=== PATIENT | female | born 1960 | race Caucasian/White ===

== ENCOUNTER 2018-11-14 08:00 | Outpatient (CLI) | payer OTHER ==
[2018-11-14 19:24] LABS: BILIRUBIN,URINE NEGATIVE (NEGATIVE); GLUCOSE, URINE (UA) >=1000 mg/dL (NEGATIVE); KETONES,URINE (UA) NEGATIVE (NEGATIVE); LEUKOCYTE ESTERASE, URINE NEGATIVE (NEGATIVE); NITRITE,URINE NEGATIVE (NEGATIVE); OCCULT BLOOD,URINE NEGATIVE (NEGATIVE); PROTEIN,URINE NEGATIVE (NEGATIVE); UROBILINOGEN,URINE 0.2 (NORMAL) E.U./dL (NORMAL)
[2018-11-14 19:28] LABS: CLARITY,URINE CLEAR (CLEAR)
== END 2018-11-14 23:59 | disposition home or self-care (01) ==
LOC: LAB.R 08:00
PROVIDERS: ATTEND Internal Medicine
DX: N39.0 Urinary tract infection, site not specified (principal)
CPT/HCPCS: 81001; 81003; 87086

== ENCOUNTER 2023-03-28 00:22 | Outpatient (CLI) | payer MEDICARE, OTHER | END 2023-03-28 23:59 | disposition EMS.NT | LOC: EMS 00:22 | DX: Z03.89 Encounter for observation for other suspected diseases and conditions ruled out (principal) ==

== ENCOUNTER 2023-04-19 08:36 | Emergency (ER) | payer MEDICARE, OTHER ==
--- NOTE | 2023-04-19 09:02 | ED Physician Documentation ---
History of Present Illness - Stated complaint Stated Complaint: SENT BY PCP - Chief complaint Chief Complaint: General - History obtained from History obtained from: Patient - History of Present Illness Timing: Today - Additonal information Additional information: Radha Russell is a 62-year-old female with a history of type 2 diabetes who went into see her primary care doctor for a wound that was not healing on her right foot. She had some blood work done yesterday and she was called by her primary care doctor who recommended she come to the emergency department for recheck of her potassium. The patient states that she is otherwise without specific symptoms. She denies vomiting diarrhea constipation shortness of breath cough fever. Review of Systems Constitutional: denies: Fever, Myalgias Eyes: denies: Decreased vision Ears: denies: Ear pain Nose: denies: Rhinorrhea / runny nose, Congestion Throat: denies: Sore throat Cardiac: denies: Chest pain / pressure, Palpitations Respiratory: denies: Dyspnea, Cough, Wheezing GI: denies: Abdominal Pain, Nausea, Vomiting, Constipation, Diarrhea : denies: Dysuria, Frequency Skin: denies: Rash Musculoskeletal: reports: Extremity pain. 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 - Present Medications Home Medications: Ambulatory Orders Medication Instructions Recorded Confirmed Insulin Glargine,Hum.rec.anlog 70 unit SQ HS 04/28/17 04/19/23 [Lantus Solostar] Insulin Lispro [Humalog] 100 unit SQ AC 04/28/17 04/19/23 lisinopriL [Lisinopril] 40 mg PO DAILY 04/28/17 04/19/23 Amox/Clav 875/125 [Augmentin 1 tablet PO Q12H 04/19/23 04/19/23 875/125 Tab] Chlorthalidone 25 mg ORAL DAILY 04/19/23 04/19/23 Empagliflozin [Jardiance] 25 mg PO DAILY 04/19/23 04/19/23 Furosemide [Lasix] 20 mg PO DAILY #20 tablet 04/19/23 Rosuvastatin Calcium 20 mg PO DAILY 04/19/23 04/19/23 Sulfamethox/Trimeth 800/160 1 tablet PO BID 04/19/23 04/19/23 [Bactrim Ds] - Allergies Allergies/Adverse Reactions: Allergies Allergy/AdvReac Type Severity Reaction Status Date / Time levofloxacin Allergy Intermediate swelling Verified 04/19/23 08:42 in mouth rosiglitazone maleate * AdvReac Edema Verified 04/19/23 08:42 [From [facility]] - Social History Smoking Status: Never smoker PD ED PE NORMAL - Vitals Vital signs reviewed: Yes (hypertensive ) - General General: Alert and oriented X 3, No acute distress, Well developed/nourished - HEENT HEENT: Atraumatic, PERRL, EOMI - Respiratory Respiratory: No respiratory distress - Derm Derm: Normal color, Warm and dry - Extremities Extremities: No edema, Other (right calf is dressed) - Neuro Neuro: Alert and oriented X 3, door slinger 2-12 intact, No motor deficit, No sensory deficit, Normal speech Eye Opening: Spontaneous Motor: Obeys Commands Verbal: Oriented GCS Score: 15 - Psych Psych: Normal mood, Normal affect Results - Vitals Vitals: Vital Signs - 24 hr 04/19/23 04/19/23 04/19/23 08:44 13:00 15:11 Temperature 36.3 C L Heart Rate 87 80 78 Respiratory 18 20 19 Rate Blood Pressure 164/68 H 128/57 L 129/56 L O2 Saturation 98 98 99 Oxygen O2 Source Room air - EKG (time done) 1352 EKG releavant findings:: EKG personally interpreted by author of this note. Relevant findings are: Rate: Rate (enter#) (88) Rhythm: NSR Ischemia: Normal ST segments Compare to prior EKG: Old EKG unavailable Computer interpretation: Agree with computer - Labs Labs: Laboratory Tests 04/19/23 04/19/23 04/19/23 09:03 09:30 09:30 WBC 7.6 RBC 4.80 Hgb 12.7 Hct 40.7 MCV 84.8 MCH 26.5 L MCHC 31.2 L RDW 16.1 H Plt Count 277 MPV 8.9 Neut # (Auto) 5.4 Lymph # (Auto) 1.3 L [place] # (Auto) 0.6 Eos # (Auto) 0.1 Baso # (Auto) 0.1 Absolute Nucleated RBC 0.00 Nucleated RBC % 0.0 Sodium 134 L Potassium 6.2 H* Chloride 104 Carbon Dioxide 24 Anion Gap 6.0 BUN 55 H Creatinine 1.6 H Estimated GFR (MDRD) 33 L Glucose 170 H POC Whole Bld Glucose 141 H Calcium 9.5 Total Bilirubin 0.5 AST 13 ALT 18 Alkaline Phosphatase 67 Total Protein 7.8 Albumin 3.5 Globulin 4.3 H Albumin/Globulin Ratio 0.8 L Lipase 87 H 04/19/23 04/19/23 13:17 16:08 WBC RBC Hgb Hct MCV MCH MCHC RDW Plt Count MPV Neut # (Auto) Lymph # (Auto) [place] # (Auto) Eos # (Auto) Baso # (Auto) Absolute Nucleated RBC Nucleated RBC % Sodium 134 L 132 L Potassium 6.1 H* 5.9 H Chloride 106 102 Carbon Dioxide 21 21 Anion Gap 7.0 9.0 BUN 50 H 47 H Creatinine 1.5 H 1.5 H Estimated GFR (MDRD) 35 L 35 L Glucose 176 H 212 H POC Whole Bld Glucose Calcium 9.1 9.4 Total Bilirubin AST ALT Alkaline Phosphatase Total Protein Albumin Globulin Albumin/Globulin Ratio Lipase Procedures - IVC sono (time) 1012 Bedside IVC sono: IVC measures (cm) (0.92), Dehydration (2 liter deficit) PD Medical Decision Making - ED course Complexity details: reviewed results, re-evaluated patient, considered differential, d/w patient Reviewed Lab Results: We reviewed a complete blood count showing a normal white blood cell count normal hemoglobin hematocrit and platelets with normal indices chemistries were remarkable for his serum potassium of 6.2 BUN elevated at 55 and creatinine elevated at 1.6 we do not have priors for this patient for comparison. I have compared this to an outpatient note and it appears this is similar from her previous 4 BUN and creatinine liver function normal, These laboratory results confirmed the reason the patient was brought into the emergency department. With an elevated potassium of 6.2. Her elevated BUN of 55 and creatinine of 1.6 are significant for chronic renal insufficiency. ED course: 62-year-old Radha Russell has come to the emergency department after getting a call from her primary care doctor with concerns of her potassium being elevated. She has a history of diabetes which has been poorly controlled and chronic renal insufficiency as a result of her diabetes. She is currently being treated for a wound to her leg which appears to be healing and is not examined today. It does appear she has improved her control of her diabetes prior to arrival to the emergency department. She did appear dehydrated on interrogation of the inferior vena cava and the initial maneuver for lowering the potassium was simple hydration with saline. This was ineffective. We subsequently administered 40 mg of Lasix intravenously and reduce the potassium into a safer range of 5.9. We will place the patient on a short term Lasix and have her follow-up with her primary. I have asked her to stop her chlorthalidone while she is taking the Lasix. I have asked her to be very careful about control of her diabetes as the combination of diabetes [id number] and the Lasix could make the dehydration critical. She has an appointment to see her primary in 2 days Departure - Departure Disposition: 01 Home, Self Care Clinical Impression: Hyperkalemia, Dehydration Condition: Stable Instructions: Hyperkalemia Dc, ED Dehydration Follow-Up: Catarina Whitfield [Other] Prescriptions: Furosemide [Lasix] 20 mg PO DAILY #20 tablet Comments: Radha, today your potassium was high and required intravenous fluid as well as Lasix to reduce it. My recommendation is to gain control of your diabetes to prevent any further dehydration. We are prescribing a diuretic which will make you dehydrated. It will also decrease your potassium. Stop the chlorthalidone today and start the lasix at 20mg daily starting tomorrow. Follow up with your doctor as planned in 2 days. The Lasix has been E scribed to the [facility] in [place] Discharge Date/Time: 04/19/23 16:47
[2023-04-19 09:36] LABS: BASOPHILS # (AUTO) 0.1 10^3/uL (0.0-0.1); BASOPHILS % (AUTO) 0.9 %; EOSINOPHILS # (AUTO) 0.1 10^3/uL (0.0-0.7); EOSINOPHILS % (AUTO) 1.6 %; HCT - HEMATOCRIT 40.7 % (37.0-47.0); HGB - HEMOGLOBIN 12.7 g/dL (12.0-16.0); LYMPHOCYTES # (AUTO) 1.3 10^3/uL (1.5-3.5); LYMPHOCYTES % (AUTO) 17.5 %; MEAN CORPUSCULAR HEMOGLOBIN 26.5 pg (27.0-31.0); MEAN CORPUSCULAR HGB CONC 31.2 g/dL (32.0-36.0); MEAN CORPUSCULAR VOLUME 84.8 fL (81.0-99.0); MEAN PLATELET VOLUME 8.9 fL (7.9-10.8); MONOCYTES # (AUTO) 0.6 10^3/uL (0.0-1.0); MONOCYTES % (AUTO) 8.3 %; NEUTROPHILS # (AUTO) 5.4 10^3/uL (1.5-6.6); NEUTROPHILS % (AUTO) 70.9 %; PLT - PLATELET COUNT 277 10^3/uL (130-450); RED CELL DISTRIBUTION WIDTH 16.1 % (12.0-15.0); WHITE BLOOD COUNT 7.6 x10^3/uL (4.8-10.8)
[2023-04-19 09:54] LABS: ALBUMIN 3.5 g/dL (3.2-5.5); CALCIUM 9.5 mg/dL (8.5-10.3); CREATININE 1.6 mg/dL (0.4-1.0)
[2023-04-19 09:55] LABS: ALBUMIN/GLOBULIN RATIO 0.8 (1.0-2.2); BILIRUBIN,TOTAL 0.5 mg/dL (0.2-1.0); TOTAL PROTEIN 7.8 g/dL (6.7-8.2)
[2023-04-19 09:58] LABS: POTASSIUM 6.2 mmol/L (3.5-5.0)
--- OUTSIDE RECORDS SUMMARY | 2023-04-19 09:58 | EXTERNAL MEDICAL SUMMARY RPT | Continuity of Care Document ---
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 Role Phone Shaggy Sanchez Unavailable Unavailable Allergies and Intolerances date description facility type (no date) Penicillins [facility] (unknown) (no date) ibuprofen [facility] (unknown) Medications date description facility 2023-01-31 00:00 Nitrofurantoin Monohyd/M-Cryst [facility] 2023-01-31 00:00 Fluconazole [facility] Problems date description facility 2023-01-31 00:00 Infection due to yeast [facility] 2023-01-31 00:00 Urinary tract infection [facility] Results/Labs test date author facility value unit interpretation Result panel 1 (unknown) (no date) (unknown) (unknown) 0-1/HPF (units unknown) (unknown) (unknown) (no date) (unknown) (unknown) 0-1/HPF (units unknown) (unknown) (unknown) (no date) (unknown) (unknown) 10-30/HPF (units unknown) (unknown) (unknown) (no date) (unknown) (unknown) Few (2-10) (units unknown) (unknown) (unknown) (no date) (unknown) (unknown) Specimen Cultured (u nits unknown) (unknown) Result panel 2 (unknown) (no date) (unknown) (unknown) (no value) (units unknown) (unknown) (unknown) (no date) (unknown) (unknown) (Benadryl) (units unknown) (unknown) (unknown) (no date) (unknown) (unknown) (Jardiance) (units unknown) (unknown) (unknown) (no date) (unknown) (unknown) (Toujeo SoloSt ar U-300 Insulin) (units unknown) (unknown) (unknown) (no date) (unknown) (unknown) 11/13/19 (units unknown) (unknown) (unknown) (no date) (unknown) (unknown) 01/31/23 20:54 (unit s unknown) (unknown) (unknown) (no date) (unknown) (unknown) 01/31/23 Range/Units (units unknown) (unknown) (unknown) (no date) (unknown) (unknown) 01/31/23 (units unknown) (unknown) (unknown) (no date) (unknown) (unknown) 1 spray Intran eden PRN PRN (Reason: Allergy Symptoms) (units unknown) (unknown) (unknown) (no date) (unknown) (unknown) 100 unit SQ BID Qty: 0 (units unknown) (unknown) (unknown) (no date) (unknown) (unknown) 100 unit SUBCUT AC ( units unknown) (unknown) (unknown) (no date) (unknown) (unknown) [id number] (units unknown) (unknown) (unknown) (no date) (unknown) (unknown) 20 mg PO BID Qty: 0 (units unknown) (unknown) (unknown) (no date) (unknown) (unknown) 20:25 (units unknown) (unknown) (unknown) (no date) (unknown) (unknown) 20:54 (units unknown) (unknown) (unknown) (no date) (unknown) (unknown) 25 mg PO DAILY (unit s unknown) (unknown) (unknown) (no date) (unknown) (unknown) 25 mg PO PRN P RN (Reason: Allergy Symptoms) (units unknown) (unknown) (unknown) (no date) (unknown) (unknown) 325 mg PO PRN PRN (Reason: pain) (units unknown) (unknown) (unknown) (no date) (unknown) (unknown) 80 units subcut BID (units unknown) (unknown) (unknown) (no date) (unknown) (unknown) Age/Sex: 62 / F (uni ts unknown) (unknown) (unknown) (no date) (unknown) (unknown) Allergies (units unknown) (unknown) (unknown) (no date) (unknown) (unknown) Allergy/AdvRea c Type Severity Reaction Status Date / Time (units unknown) (unknown) (unknown) (no date) (unknown) (unknown) Amputation of second toe, left, traumatic (units unknown) (unknown) (unknown) (no date) (unknown) (unknown) Bedside Urine Bilirubin - Negative (units unknown) (unknown) (unknown) (no date) (unknown) (unknown) Bedside Urine Glucose 1000 mg/dl (units unknown) (unknown) (unknown) (no date) (unknown) (unknown) Bedside Urine Ketone - Negative (units unknown) (unknown) (unknown) (no date) (unknown) (unknown) Bedside Urine Leukocytes +/- 15 (units unknown) (unknown) (unknown) (no date) (unknown) (unknown) Bedside Urine Nitrite - Negative (units unknown) (unknown) (unknown) (no date) (unknown) (unknown) Bedside Urine Occult Blood (units unknown) (unknown) (unknown) (no date) (unknown) (unknown) Bedside Urine Protein - Negative (units unknown) (unknown) (unknown) (no date) (unknown) (unknown) Bedside Urine Urobilinogen - Negative (units unknown) (unknown) (unknown) (no date) (unknown) (unknown) Bedside Urine pH 5.5 (units unknown) (unknown) (unknown) (no date) (unknown) (unknown) Blood Pressure 169/74 H 01/31/23 20:25 (units unknown) (unknown) (unknown) (no date) (unknown) (unknown) Blood Pressure 169/74 H (units unknown) (unknown) (unknown) (no date) (unknown) (unknown) Chief complain t: Urogenital-Female (units unknown) (unknown) (unknown) (no date) (unknown) (unknown) Chronic wound of extremity (units unknown) (unknown) (unknown) (no date) (unknown) (unknown) Course (units unknown) (unknown) (unknown) (no date) (unknown) (unknown) : 2 Acct:[id number] (units unknown) (unknown) (unknown) (no date) (unknown) (unknown) Date of Servic e: 01/31/23 (units unknown) (unknown) (unknown) (no date) (unknown) (unknown) Departure (units unknown) (unknown) (unknown) (no date) (unknown) (unknown) Diabetes melli tus, type 2 (units unknown) (unknown) (unknown) (no date) (unknown) (unknown) Discharge Plan (unit s unknown) (unknown) (unknown) (no date) (unknown) (unknown) ED Orders (units unknown) (unknown) (unknown) (no date) (unknown) (unknown) ER Physician: Kei Green D.O. (units unknown) (unknown) (unknown) (no date) (unknown) (unknown) Edema extremities (u nits unknown) (unknown) (unknown) (no date) (unknown) (unknown) Emergency Report (un its unknown) (unknown) (unknown) (no date) (unknown) (unknown) Esterase (units unknown) (unknown) (unknown) (no date) (unknown) (unknown) Exam (units unknown) (unknown) (unknown) (no date) (unknown) (unknown) Family History (units unknown) (unknown) (unknown) (no date) (unknown) (unknown) General (units unknown) (unknown) (unknown) (no date) (unknown) (unknown) H/O section (units unknown) (unknown) (unknown) (no date) (unknown) (unknown) HPI - General Adult (units unknown) (unknown) (unknown) (no date) (unknown) (unknown) Home Medications (un its unknown) (unknown) (unknown) (no date) (unknown) (unknown) Humalog FadykathrynEmory n Insulin 200 unit/mL (3 mL) Insulin Pen (units unknown) (unknown) (unknown) (no date) (unknown) (unknown) Hx of appendectomy ( units unknown) (unknown) (unknown) (no date) (unknown) (unknown) Hypertension (units unknown) (unknown) (unknown) (no date) (unknown) (unknown) Initial Vital Signs (units unknown) (unknown) (unknown) (no date) (unknown) (unknown) Initial Vital Signs: (units unknown) (unknown) (unknown) (no date) (unknown) (unknown) [address] [id number] (units unknown) (unknown) (unknown) (no date) (unknown) (unknown) Jardiance 25 mg Tabl et (units unknown) (unknown) (unknown) (no date) (unknown) (unknown) Lab Data (units unknown) (unknown) (unknown) (no date) (unknown) (unknown) Lab Results (units unknown) (unknown) (unknown) (no date) (unknown) (unknown) Labs: (units unknown) (unknown) (unknown) (no date) (unknown) (unknown) Lantus U-100 I nsulin 100 UNIT/1 ML solution (units unknown) (unknown) (unknown) (no date) (unknown) (unknown) Medical Decisi on Making (units unknown) (unknown) (unknown) (no date) (unknown) (unknown) Medical Histor y (units unknown) (unknown) (unknown) (no date) (unknown) (unknown) Medication Instructions Recorded Confirmed (units unknown) (unknown) (unknown) (no date) (unknown) (unknown) Mode of arriva l: Wheelchair (units unknown) (unknown) (unknown) (no date) (unknown) (unknown) Mother d No problems noted. (units unknown) (unknown) (unknown) (no date) (unknown) (unknown) Neuropathy ass ociated with anti-acetylcholine receptor antibody (units unknown) (unknown) (unknown) (no date) (unknown) (unknown) Neuropathy (units unknown) (unknown) (unknown) (no date) (unknown) (unknown) No Action (units unknown) (unknown) (unknown) (no date) (unknown) (unknown) Ordered: (units unknown) (unknown) (unknown) (no date) (unknown) (unknown) Orders (units unknown) (unknown) (unknown) (no date) (unknown) (unknown) Osteomyelitis (units unknown) (unknown) (unknown) (no date) (unknown) (unknown) Oxygen Deliver y Method Room Air 01/31/23 20:25 (units unknown) (unknown) (unknown) (no date) (unknown) (unknown) Oxygen Deliver y Method Room Air (units unknown) (unknown) (unknown) (no date) (unknown) (unknown) Patient History (uni ts unknown) (unknown) (unknown) (no date) (unknown) (unknown) Patient: Radha Russell MR#: [id number] (units unknown) (unknown) (unknown) (no date) (unknown) (unknown) Penicillins Al lergy Severe RASH, Verified 10/13/18 12:40 (units unknown) (unknown) (unknown) (no date) (unknown) (unknown) Point of care testin g: (units unknown) (unknown) (unknown) (no date) (unknown) (unknown) Prescriptions: (unit s unknown) (unknown) (unknown) (no date) (unknown) (unknown) Pulse Oximetry 96 01/31/23 20:25 (units unknown) (unknown) (unknown) (no date) (unknown) (unknown) Pulse Oximetry 96 (u nits unknown) (unknown) (unknown) (no date) (unknown) (unknown) Pulse Rate 104 H 01/31/23 20:25 (units unknown) (unknown) (unknown) (no date) (unknown) (unknown) Pulse Rate 104 H (un its unknown) (unknown) (unknown) (no date) (unknown) (unknown) Related Data (units unknown) (unknown) (unknown) (no date) (unknown) (unknown) Relief) (units unknown) (unknown) (unknown) (no date) (unknown) (unknown) Respiratory Ra te 18 01/31/23 20:25 (units unknown) (unknown) (unknown) (no date) (unknown) (unknown) Respiratory Rate 18 (units unknown) (unknown) (unknown) (no date) (unknown) (unknown) Signed By: (units unknown) (unknown) (unknown) (no date) (unknown) (unknown) Smoking Status : Never smoker (units unknown) (unknown) (unknown) (no date) (unknown) (unknown) Social History (units unknown) (unknown) (unknown) (no date) (unknown) (unknown) Source: patient (uni ts unknown) (unknown) (unknown) (no date) (unknown) (unknown) [place],Suspension (un its unknown) (unknown) (unknown) (no date) (unknown) (unknown) Stated complai nt: feels like uti (units unknown) (unknown) (unknown) (no date) (unknown) (unknown) Substance Use Type: does not use (units unknown) (unknown) (unknown) (no date) (unknown) (unknown) Surgical Histo ry (units unknown) (unknown) (unknown) (no date) (unknown) (unknown) Temperature 97 .8 F 01/31/23 20:25 (units unknown) (unknown) (unknown) (no date) (unknown) (unknown) Temperature 97.8 F ( units unknown) (unknown) (unknown) (no date) (unknown) (unknown) Time Seen by [place] sun: 01/31/23 21:27 (units unknown) (unknown) (unknown) (no date) (unknown) (unknown) Julio Cesar Ortiz r U-300 Insulin 300 unit/mL (1.5 mL) Insulin Pen (units unknown) (unknown) (unknown) (no date) (unknown) (unknown) U-100 Insulin) (unit s unknown) (unknown) (unknown) (no date) (unknown) (unknown) U-200 Insulin) (unit s unknown) (unknown) (unknown) (no date) (unknown) (unknown) Ur Culture Ind icated? Specimen cultured (units unknown) (unknown) (unknown) (no date) (unknown) (unknown) Urine Bacteria Few (2-10) H (None) (units unknown) (unknown) (unknown) (no date) (unknown) (unknown) Urine Culture Stat ( units unknown) (unknown) (unknown) (no date) (unknown) (unknown) Urine Dip (units unknown) (unknown) (unknown) (no date) (unknown) (unknown) Urine Microscopic St at (units unknown) (unknown) (unknown) (no date) (unknown) (unknown) Urine RBC 0-1/ hpf (0-5/HPF) (units unknown) (unknown) (unknown) (no date) (unknown) (unknown) Urine Specific [place] 1.015 (units unknown) (unknown) (unknown) (no date) (unknown) (unknown) Urine WBC 10-3 0/hpf H (0-5/HPF) (units unknown) (unknown) (unknown) (no date) (unknown) (unknown) VOMITING (units unknown) (unknown) (unknown) (no date) (unknown) (unknown) Vital Signs - 8 hr ( units unknown) (unknown) (unknown) (no date) (unknown) (unknown) Vital Signs (units unknown) (unknown) (unknown) (no date) (unknown) (unknown) Vital signs: (units unknown) (unknown) (unknown) (no date) (unknown) (unknown) alcohol intake frequency: holidays/special occasions only (units unknown) (unknown) (unknown) (no date) (unknown) (unknown) alcohol intake: reagan r (units unknown) (unknown) (unknown) (no date) (unknown) (unknown) aspirin 325 mg Table t (units unknown) (unknown) (unknown) (no date) (unknown) (unknown) aspirin 325 mg tablet 325 mg PO PRN PRN pain 11/13/19 11/13/19 (units unknown) (unknown) (unknown) (no date) (unknown) (unknown) diphenhydramin e HCl 25 mg capsule 25 mg PO PRN PRN Allergy Symptoms 10/13/18 (units unknown) (unknown) (unknown) (no date) (unknown) (unknown) diphenhydramin e HCl [Benadryl] 25 mg Capsule (units unknown) (unknown) (unknown) (no date) (unknown) (unknown) empagliflozin 25 mg tablet 25 mg PO DAILY 10/13/18 11/13/19 (units unknown) (unknown) (unknown) (no date) (unknown) (unknown) fluticasone pr opionate 50 1 spray intranasal PRN PRN Allergy 10/13/18 11/13/19 (units unknown) (unknown) (unknown) (no date) (unknown) (unknown) fluticasone pr opionate [Flonase Allergy Relief] 50 mcg/actuation (units unknown) (unknown) (unknown) (no date) (unknown) (unknown) household memb ers: spouse, children and other (units unknown) (unknown) (unknown) (no date) (unknown) (unknown) ibuprofen [place] Severe VOMITING Verified 10/13/18 12:40 (units unknown) (unknown) (unknown) (no date) (unknown) (unknown) insulin glargi ne 100 unit/mL 100 unit SQ BID ##0 09/21/11 11/13/19 (units unknown) (unknown) (unknown) (no date) (unknown) (unknown) insulin glargi ne U-300 conc 300 80 units SUBCUT BID 10/13/18 11/13/19 (units unknown) (unknown) (unknown) (no date) (unknown) (unknown) insulin lispro 200 unit/mL (3 mL) 100 unit SUBCUT AC 11/14/19 11/14/19 (units unknown) (unknown) (unknown) (no date) (unknown) (unknown) lisinopril 40 MG tablet (units unknown) (unknown) (unknown) (no date) (unknown) (unknown) lisinopril 40 mg tablet 20 mg PO BID ##0 09/21/11 11/13/19 (units unknown) (unknown) (unknown) (no date) (unknown) (unknown) mcg/actuation nasal Symptoms (units unknown) (unknown) (unknown) (no date) (unknown) (unknown) spray,suspensi on (Flonase Allergy (units unknown) (unknown) (unknown) (no date) (unknown) (unknown) subcutaneous p en (Humalog KwikPen (units unknown) (unknown) (unknown) (no date) (unknown) (unknown) subcutaneous s olution (Lantus (units unknown) (unknown) (unknown) (no date) (unknown) (unknown) unit/mL (1.5 m L) subcutaneous pen (units unknown) (unknown) Result panel 3 (unknown) (no date) (unknown) (unknown) (no value) (units unknown) (unknown) (unknown) (no date) (unknown) (unknown) <Electronicall y signed by Kei Green D.O.> (units unknown) (unknown) (unknown) (no date) (unknown) (unknown) (Benadryl) (units unknown) (unknown) (unknown) (no date) (unknown) (unknown) (Diflucan) (units unknown) (unknown) (unknown) (no date) (unknown) (unknown) (Jardiance) (units unknown) (unknown) (unknown) (no date) (unknown) (unknown) (Toujeo SoloSt ar U-300 Insulin) (units unknown) (unknown) (unknown) (no date) (unknown) (unknown) 11/13/19 (units unknown) (unknown) (unknown) (no date) (unknown) (unknown) 01/31/23 20:54 (unit s unknown) (unknown) (unknown) (no date) (unknown) (unknown) 01/31/23 Range/Units (units unknown) (unknown) (unknown) (no date) (unknown) (unknown) 01/31/23 (units unknown) (unknown) (unknown) (no date) (unknown) (unknown) 02/01/23 0550 (units unknown) (unknown) (unknown) (no date) (unknown) (unknown) 1 spray Intran eden PRN PRN (Reason: Allergy Symptoms) (units unknown) (unknown) (unknown) (no date) (unknown) (unknown) 100 mg PO BOUBACAR Y Qty: 2 0RF (units unknown) (unknown) (unknown) (no date) (unknown) (unknown) 100 mg PO Q12H 5 Days Qty: 10 0RF (units unknown) (unknown) (unknown) (no date) (unknown) (unknown) 100 unit SQ BID Qty: 0 (units unknown) (unknown) (unknown) (no date) (unknown) (unknown) 100 unit SUBCUT AC ( units unknown) (unknown) (unknown) (no date) (unknown) (unknown) [id number] (units unknown) (unknown) (unknown) (no date) (unknown) (unknown) 20 mg PO BID Qty: 0 (units unknown) (unknown) (unknown) (no date) (unknown) (unknown) 20:25 (units unknown) (unknown) (unknown) (no date) (unknown) (unknown) 20:54 (units unknown) (unknown) (unknown) (no date) (unknown) (unknown) 25 mg PO DAILY (unit s unknown) (unknown) (unknown) (no date) (unknown) (unknown) 25 mg PO PRN P RN (Reason: Allergy Symptoms) (units unknown) (unknown) (unknown) (no date) (unknown) (unknown) 325 mg PO PRN PRN (Reason: pain) (units unknown) (unknown) (unknown) (no date) (unknown) (unknown) 80 units subcut BID (units unknown) (unknown) (unknown) (no date) (unknown) (unknown) Activity Restrictions/Additiona l Instructions: (units unknown) (unknown) (unknown) (no date) (unknown) (unknown) Age/Sex: 62 / F (uni ts unknown) (unknown) (unknown) (no date) (unknown) (unknown) Allergies (units unknown) (unknown) (unknown) (no date) (unknown) (unknown) Allergy/AdvRea c Type Severity Reaction Status Date / Time (units unknown) (unknown) (unknown) (no date) (unknown) (unknown) Amputation of second toe, left, traumatic (units unknown) (unknown) (unknown) (no date) (unknown) (unknown) Bedside Urine Bilirubin - Negative (units unknown) (unknown) (unknown) (no date) (unknown) (unknown) Bedside Urine Glucose 1000 mg/dl (units unknown) (unknown) (unknown) (no date) (unknown) (unknown) Bedside Urine Ketone - Negative (units unknown) (unknown) (unknown) (no date) (unknown) (unknown) Bedside Urine Leukocytes +/- 15 (units unknown) (unknown) (unknown) (no date) (unknown) (unknown) Bedside Urine Nitrite - Negative (units unknown) (unknown) (unknown) (no date) (unknown) (unknown) Bedside Urine Occult Blood (units unknown) (unknown) (unknown) (no date) (unknown) (unknown) Bedside Urine Protein - Negative (units unknown) (unknown) (unknown) (no date) (unknown) (unknown) Bedside Urine Urobilinogen - Negative (units unknown) (unknown) (unknown) (no date) (unknown) (unknown) Bedside Urine pH 5.5 (units unknown) (unknown) (unknown) (no date) (unknown) (unknown) Blood Pressure 169/74 H 01/31/23 20:25 (units unknown) (unknown) (unknown) (no date) (unknown) (unknown) Blood Pressure 169/74 H (units unknown) (unknown) (unknown) (no date) (unknown) (unknown) Cephalexin HCl (Cephalexin 250 Mg Capsule) 500 mg PO NOW ONE (units unknown) (unknown) (unknown) (no date) (unknown) (unknown) Chief complain t: Urogenital-Female (units unknown) (unknown) (unknown) (no date) (unknown) (unknown) Chronic wound of extremity (units unknown) (unknown) (unknown) (no date) (unknown) (unknown) Clinical Impression: (units unknown) (unknown) (unknown) (no date) (unknown) (unknown) Const (units unknown) (unknown) (unknown) (no date) (unknown) (unknown) Constitutional (unit s unknown) (unknown) (unknown) (no date) (unknown) (unknown) Constitutional : Reports system reviewed and no additional complaints, except as (units unknown) (unknown) (unknown) (no date) (unknown) (unknown) Course (units unknown) (unknown) (unknown) (no date) (unknown) (unknown) : 2 Acct:[id number] (units unknown) (unknown) (unknown) (no date) (unknown) (unknown) Date of Servic e: 01/31/23 (units unknown) (unknown) (unknown) (no date) (unknown) (unknown) Departure (units unknown) (unknown) (unknown) (no date) (unknown) (unknown) Diabetes melli tus, type 2 (units unknown) (unknown) (unknown) (no date) (unknown) (unknown) Discharge Plan (unit s unknown) (unknown) (unknown) (no date) (unknown) (unknown) Discontinued Medications (units unknown) (unknown) (unknown) (no date) (unknown) (unknown) Documented By: [facility] ( units unknown) (unknown) (unknown) (no date) (unknown) (unknown) Documented By: RL (u nits unknown) (unknown) (unknown) (no date) (unknown) (unknown) ED Orders (units unknown) (unknown) (unknown) (no date) (unknown) (unknown) ER Physician: Kei Green D.O. (units unknown) (unknown) (unknown) (no date) (unknown) (unknown) Edema extremities (u nits unknown) (unknown) (unknown) (no date) (unknown) (unknown) Emergency Report (un its unknown) (unknown) (unknown) (no date) (unknown) (unknown) Esterase (units unknown) (unknown) (unknown) (no date) (unknown) (unknown) Exam (units unknown) (unknown) (unknown) (no date) (unknown) (unknown) Family History (units unknown) (unknown) (unknown) (no date) (unknown) (unknown) Fluconazole (Fluconazole 100 Mg Tablet) 100 mg PO NOW ONE (units unknown) (unknown) (unknown) (no date) (unknown) (unknown) GI (units unknown) (unknown) (unknown) (no date) (unknown) (unknown) Gastrointestinal (un its unknown) (unknown) (unknown) (no date) (unknown) (unknown) Gastrointestin al: Reports system reviewed and no additional complaints, except (units unknown) (unknown) (unknown) (no date) (unknown) (unknown) General (units unknown) (unknown) (unknown) (no date) (unknown) (unknown) General: coope rative and comfortable (units unknown) (unknown) (unknown) (no date) (unknown) (unknown) Genitourinary (units unknown) (unknown) (unknown) (no date) (unknown) (unknown) Genitourinary: Reports system reviewed and no additional complaints, except as (units unknown) (unknown) (unknown) (no date) (unknown) (unknown) H/O section (units unknown) (unknown) (unknown) (no date) (unknown) (unknown) HENMT (units unknown) (unknown) (unknown) (no date) (unknown) (unknown) HPI - General Adult (units unknown) (unknown) (unknown) (no date) (unknown) (unknown) HPI narrative: (unit s unknown) (unknown) (unknown) (no date) (unknown) (unknown) Head: normal t o inspection and normocephalic (units unknown) (unknown) (unknown) (no date) (unknown) (unknown) History of Pre sent Illness (units unknown) (unknown) (unknown) (no date) (unknown) (unknown) Home Medications (un its unknown) (unknown) (unknown) (no date) (unknown) (unknown) Humalog KwkathrynPe n Insulin 200 unit/mL (3 mL) Insulin Pen (units unknown) (unknown) (unknown) (no date) (unknown) (unknown) Hx of appendectomy ( units unknown) (unknown) (unknown) (no date) (unknown) (unknown) Hypertension (units unknown) (unknown) (unknown) (no date) (unknown) (unknown) I do recommend that you take the antibiotics and the Diflucan as directed. They (units unknown) (unknown) (unknown) (no date) (unknown) (unknown) Initial Vital Signs (units unknown) (unknown) (unknown) (no date) (unknown) (unknown) Initial Vital Signs: (units unknown) (unknown) (unknown) (no date) (unknown) (unknown) Inspection: no rmal to inspection (units unknown) (unknown) (unknown) (no date) (unknown) (unknown) Instructions: DI for Urinary Tract Infection (UTI) (units unknown) (unknown) (unknown) (no date) (unknown) (unknown) Integumentary/Breast s (units unknown) (unknown) (unknown) (no date) (unknown) (unknown) [address] [address] (units unknown) (unknown) (unknown) (no date) (unknown) (unknown) Jardiance 25 mg Tabl et (units unknown) (unknown) (unknown) (no date) (unknown) (unknown) Lab Data (units unknown) (unknown) (unknown) (no date) (unknown) (unknown) Lab Results (units unknown) (unknown) (unknown) (no date) (unknown) (unknown) Labs: (units unknown) (unknown) (unknown) (no date) (unknown) (unknown) Lantus U-100 I nsulin 100 UNIT/1 ML solution (units unknown) (unknown) (unknown) (no date) (unknown) (unknown) Last Admin: 21:37 Dose: Not Given (units unknown) (unknown) (unknown) (no date) (unknown) (unknown) Last Admin: 21:42 Dose: 100 mg (units unknown) (unknown) (unknown) (no date) (unknown) (unknown) MDM Narrative (units unknown) (unknown) (unknown) (no date) (unknown) (unknown) Medical Decisi on Making (units unknown) (unknown) (unknown) (no date) (unknown) (unknown) Medical Histor y (units unknown) (unknown) (unknown) (no date) (unknown) (unknown) Medical decisi on making narrative: (units unknown) (unknown) (unknown) (no date) (unknown) (unknown) Medication Instructions Recorded Confirmed (units unknown) (unknown) (unknown) (no date) (unknown) (unknown) Medication Instructions Recorded (units unknown) (unknown) (unknown) (no date) (unknown) (unknown) Mode of arriva l: Wheelchair (units unknown) (unknown) (unknown) (no date) (unknown) (unknown) Mother d No problems noted. (units unknown) (unknown) (unknown) (no date) (unknown) (unknown) Neuropathy ass ociated with anti-acetylcholine receptor antibody (units unknown) (unknown) (unknown) (no date) (unknown) (unknown) Neuropathy (units unknown) (unknown) (unknown) (no date) (unknown) (unknown) New (units unknown) (unknown) (unknown) (no date) (unknown) (unknown) Nitrofurantoin Macrocrystals (Nitrofurantoin Er 100 Mg Capsule) 100 mg PO NOW (units unknown) (unknown) (unknown) (no date) (unknown) (unknown) No Action (units unknown) (unknown) (unknown) (no date) (unknown) (unknown) ONE (units unknown) (unknown) (unknown) (no date) (unknown) (unknown) Ordered: (units unknown) (unknown) (unknown) (no date) (unknown) (unknown) Orders (units unknown) (unknown) (unknown) (no date) (unknown) (unknown) Osteomyelitis (units unknown) (unknown) (unknown) (no date) (unknown) (unknown) Oxygen Deliver y Method Room Air 01/31/23 20:25 (units unknown) (unknown) (unknown) (no date) (unknown) (unknown) Oxygen Deliver y Method Room Air (units unknown) (unknown) (unknown) (no date) (unknown) (unknown) Patient Dispos ition: Home (units unknown) (unknown) (unknown) (no date) (unknown) (unknown) Patient History (uni ts unknown) (unknown) (unknown) (no date) (unknown) (unknown) Patient is a 62-year-old female who is here for evaluation of dysuria and (units unknown) (unknown) (unknown) (no date) (unknown) (unknown) Patient is well-appearing. Her urinalysis does have bacteria and white blood (units unknown) (unknown) (unknown) (no date) (unknown) (unknown) Patient: Fetty ,Radha M MR#: [id number] (units unknown) (unknown) (unknown) (no date) (unknown) (unknown) Penicillins Al lergy Severe RASH, Verified 10/13/18 12:40 (units unknown) (unknown) (unknown) (no date) (unknown) (unknown) Point of care testin g: (units unknown) (unknown) (unknown) (no date) (unknown) (unknown) Prescriptions: (unit s unknown) (unknown) (unknown) (no date) (unknown) (unknown) Previous Rx's (units unknown) (unknown) (unknown) (no date) (unknown) (unknown) Pulse Oximetry 96 01/31/23 20:25 (units unknown) (unknown) (unknown) (no date) (unknown) (unknown) Pulse Oximetry 96 (u nits unknown) (unknown) (unknown) (no date) (unknown) (unknown) Pulse Rate 104 H 01/31/23 20:25 (units unknown) (unknown) (unknown) (no date) (unknown) (unknown) Pulse Rate 104 H (un its unknown) (unknown) (unknown) (no date) (unknown) (unknown) Related Data (units unknown) (unknown) (unknown) (no date) (unknown) (unknown) Relief) (units unknown) (unknown) (unknown) (no date) (unknown) (unknown) Respiratory Ra te 18 01/31/23 20:25 (units unknown) (unknown) (unknown) (no date) (unknown) (unknown) Respiratory Rate 18 (units unknown) (unknown) (unknown) (no date) (unknown) (unknown) Review of Systems (u nits unknown) (unknown) (unknown) (no date) (unknown) (unknown) Rx Instructions: (un its unknown) (unknown) (unknown) (no date) (unknown) (unknown) She has been d oing Monistat over the past couple days without any improvement. (units unknown) (unknown) (unknown) (no date) (unknown) (unknown) She is not hav e any back pain. No fevers. No nausea or vomiting. (units unknown) (unknown) (unknown) (no date) (unknown) (unknown) Signed By: (units unknown) (unknown) (unknown) (no date) (unknown) (unknown) Skin/Breast: R eports system reviewed and no additional complaints, except as (units unknown) (unknown) (unknown) (no date) (unknown) (unknown) Smoking Status : Never smoker (units unknown) (unknown) (unknown) (no date) (unknown) (unknown) Social History (units unknown) (unknown) (unknown) (no date) (unknown) (unknown) Source: patient (uni ts unknown) (unknown) (unknown) (no date) (unknown) (unknown) [place],Suspension (un its unknown) (unknown) (unknown) (no date) (unknown) (unknown) Stand Alone Fo rubi: Patient Portal/API (units unknown) (unknown) (unknown) (no date) (unknown) (unknown) Stated complai nt: feels like uti (units unknown) (unknown) (unknown) (no date) (unknown) (unknown) Stop: 01/31/23 21:34 (units unknown) (unknown) (unknown) (no date) (unknown) (unknown) Stop: 01/31/23 21:35 (units unknown) (unknown) (unknown) (no date) (unknown) (unknown) Substance Use Type: does not use (units unknown) (unknown) (unknown) (no date) (unknown) (unknown) Surgical Histo ry (units unknown) (unknown) (unknown) (no date) (unknown) (unknown) Temperature 97 .8 F 01/31/23 20:25 (units unknown) (unknown) (unknown) (no date) (unknown) (unknown) Temperature 97.8 F ( units unknown) (unknown) (unknown) (no date) (unknown) (unknown) Time Seen by [place] sun: 01/31/23 21:27 (units unknown) (unknown) (unknown) (no date) (unknown) (unknown) Julio Cesar sun U-300 Insulin 300 unit/mL (1.5 mL) Insulin Pen (units unknown) (unknown) (unknown) (no date) (unknown) (unknown) U-100 Insulin) (unit s unknown) (unknown) (unknown) (no date) (unknown) (unknown) U-200 Insulin) (unit s unknown) (unknown) (unknown) (no date) (unknown) (unknown) Ur Culture Ind icated? Specimen cultured (units unknown) (unknown) (unknown) (no date) (unknown) (unknown) Urinary tract infection, Yeast infection (units unknown) (unknown) (unknown) (no date) (unknown) (unknown) Urine Bacteria Few (2-10) H (None) (units unknown) (unknown) (unknown) (no date) (unknown) (unknown) Urine Culture Stat ( units unknown) (unknown) (unknown) (no date) (unknown) (unknown) Urine Dip (units unknown) (unknown) (unknown) (no date) (unknown) (unknown) Urine Microscopic St at (units unknown) (unknown) (unknown) (no date) (unknown) (unknown) Urine RBC 0-1/ hpf (0-5/HPF) (units unknown) (unknown) (unknown) (no date) (unknown) (unknown) Urine Specific [place] 1.015 (units unknown) (unknown) (unknown) (no date) (unknown) (unknown) Urine WBC 10-3 0/hpf H (0-5/HPF) (units unknown) (unknown) (unknown) (no date) (unknown) (unknown) VOMITING (units unknown) (unknown) (unknown) (no date) (unknown) (unknown) Vital Signs - 8 hr ( units unknown) (unknown) (unknown) (no date) (unknown) (unknown) Vital Signs (units unknown) (unknown) (unknown) (no date) (unknown) (unknown) Vital signs: (units unknown) (unknown) (unknown) (no date) (unknown) (unknown) alcohol intake frequency: holidays/special occasions only (units unknown) (unknown) (unknown) (no date) (unknown) (unknown) alcohol intake: micke r (units unknown) (unknown) (unknown) (no date) (unknown) (unknown) antibiotics an d Diflucan. She was given a dose of antibiotics and Diflucan here (units unknown) (unknown) (unknown) (no date) (unknown) (unknown) as documented (units unknown) (unknown) (unknown) (no date) (unknown) (unknown) aspirin 325 mg Table t (units unknown) (unknown) (unknown) (no date) (unknown) (unknown) aspirin 325 mg tablet 325 mg PO PRN PRN pain 11/13/19 11/13/19 (units unknown) (unknown) (unknown) (no date) (unknown) (unknown) burning and it paula in her vaginal area. She states that she thinks she has a (units unknown) (unknown) (unknown) (no date) (unknown) (unknown) capsule (Macrobid) ( units unknown) (unknown) (unknown) (no date) (unknown) (unknown) cells. Given h er presentation I do suspect that she has a urinary tract (units unknown) (unknown) (unknown) (no date) (unknown) (unknown) department for any new symptoms. (units unknown) (unknown) (unknown) (no date) (unknown) (unknown) diphenhydramin e HCl 25 mg capsule 25 mg PO PRN PRN Allergy Symptoms 10/13/18 (units unknown) (unknown) (unknown) (no date) (unknown) (unknown) diphenhydramin e HCl [Benadryl] 25 mg Capsule (units unknown) (unknown) (unknown) (no date) (unknown) (unknown) documented (units unknown) (unknown) (unknown) (no date) (unknown) (unknown) empagliflozin 25 mg tablet 25 mg PO DAILY 10/13/18 11/13/19 (units unknown) (unknown) (unknown) (no date) (unknown) (unknown) fluconazole 10 0 mg tablet 100 mg PO DAILY #2 tabs 01/31/23 (units unknown) (unknown) (unknown) (no date) (unknown) (unknown) fluconazole [D iflucan] 100 mg tablet (units unknown) (unknown) (unknown) (no date) (unknown) (unknown) fluticasone pr opionate 50 1 spray intranasal PRN PRN Allergy 10/13/18 11/13/19 (units unknown) (unknown) (unknown) (no date) (unknown) (unknown) fluticasone pr opionate [Flonase Allergy Relief] 50 mcg/actuation (units unknown) (unknown) (unknown) (no date) (unknown) (unknown) household memb ers: spouse, children and other (units unknown) (unknown) (unknown) (no date) (unknown) (unknown) ibuprofen [place] Severe VOMITING Verified 10/13/18 12:40 (units unknown) (unknown) (unknown) (no date) (unknown) (unknown) in the ER. A prescription was sent for the remainder treatment with the (units unknown) (unknown) (unknown) (no date) (unknown) (unknown) infection. She also states that she feels like she is a yeast infection that is (units unknown) (unknown) (unknown) (no date) (unknown) (unknown) insulin glargi ne 100 unit/mL 100 unit SQ BID ##0 09/21/11 11/13/19 (units unknown) (unknown) (unknown) (no date) (unknown) (unknown) insulin glargi ne U-300 conc 300 80 units SUBCUT BID 10/13/18 11/13/19 (units unknown) (unknown) (unknown) (no date) (unknown) (unknown) insulin lispro 200 unit/mL (3 mL) 100 unit SUBCUT AC 11/14/19 11/14/19 (units unknown) (unknown) (unknown) (no date) (unknown) (unknown) lisinopril 40 MG tablet (units unknown) (unknown) (unknown) (no date) (unknown) (unknown) lisinopril 40 mg tablet 20 mg PO BID ##0 09/21/11 11/13/19 (units unknown) (unknown) (unknown) (no date) (unknown) (unknown) mcg/actuation nasal Symptoms (units unknown) (unknown) (unknown) (no date) (unknown) (unknown) monohydrate/ma crocryst als 100 mg (units unknown) (unknown) (unknown) (no date) (unknown) (unknown) must administe r with a meal/food (units unknown) (unknown) (unknown) (no date) (unknown) (unknown) nitrofurantoin 100 mg PO Q12H 5 days #10 caps 01/31/23 (units unknown) (unknown) (unknown) (no date) (unknown) (unknown) nitrofurantoin monohyd/m-cryst [Macrobid] 100 mg capsule (units unknown) (unknown) (unknown) (no date) (unknown) (unknown) not getting be tter with the [id number] Monistat cream. Plan to be is to (units unknown) (unknown) (unknown) (no date) (unknown) (unknown) pharmacy [facility]. Low suspicion for pyelonephritis. She was given return (units unknown) (unknown) (unknown) (no date) (unknown) (unknown) precautions. S he expressed understanding and agreement. (units unknown) (unknown) (unknown) (no date) (unknown) (unknown) spray,suspensi on (Flonase Allergy (units unknown) (unknown) (unknown) (no date) (unknown) (unknown) subcutaneous p en (Humalog KwikPen (units unknown) (unknown) (unknown) (no date) (unknown) (unknown) subcutaneous s olution (Lantus (units unknown) (unknown) (unknown) (no date) (unknown) (unknown) treat her for both a UTI and a yeast infection. We will do this with the (units unknown) (unknown) (unknown) (no date) (unknown) (unknown) unit/mL (1.5 m L) subcutaneous pen (units unknown) (unknown) (unknown) (no date) (unknown) (unknown) urinary tract infection. She also thinks that maybe she has a yeast infection. (units unknown) (unknown) (unknown) (no date) (unknown) (unknown) were sent to [facility] pharmacy has you requested. Return to the emergency (units unknown) (unknown) Result panel 4 (unknown) (no date) (unknown) (unknown) (no value) (units unknown) (unknown) (unknown) (no date) (unknown) (unknown) Very Early [facility]: Culture too young for work-up reincubated (units unknown) (unknown) Result panel 5 (unknown) (no date) (unknown) (unknown) >=32 (units unknown) (unknown) (unknown) (no date) (unknown) (unknown) >=320 (units unknown) (unknown) (unknown) (no date) (unknown) (unknown) >=4 (units unknown) (unknown) (unknown) (no date) (unknown) (unknown) >=8 (units unknown) (unknown) (unknown) (no date) (unknown) (unknown) <=0.25 (units unknown) (unknown) (unknown) (no date) (unknown) (unknown) <=0.5 (units unknown) (unknown) (unknown) (no date) (unknown) (unknown) <=1 (units unknown) (unknown) (unknown) (no date) (unknown) (unknown) <=16 (units unknown) (unknown) (unknown) (no date) (unknown) (unknown) <=4 (units unknown) (unknown) (unknown) (no date) (unknown) (unknown) 16 (units unknown) (unknown) (unknown) (no date) (unknown) (unknown) 30,000 - 40,000 cfu/ml (unknown) (unknown) (no date) (unknown) (unknown) 4 (units unknown) (unknown) (unknown) (no date) (unknown) (unknown) ESCCOLEscherichia co li (units unknown) (unknown) (unknown) (no date) (unknown) (unknown) No Further Workup (u nits unknown) (unknown) Social History date description facility 2023-01-31 00[facility]s date measurement value units 2023-01-31 00:00 BMI 50.1 kg/m2 2023-01-31 00:00 BP_diastolic 74 mmHg 2023-01-31 00:00 BP_systolic 174 mmHg 2023-01-31 00:00 heart_rate 93 /min 2023-01-31 00:00 height_metric 170.18 cm 2023-01-31 00:00 height_standard 67 in 2023-01-31 00:00 o2_saturation 96 % 2023-01-31 00:00 respiration_rate 18 /min 2023-01-31 00:00 temperature_metric 36.56 C 2023-01-31 00:00 temperature_standard 97.8 F 2023-01-31 00:00 weight_metric 145.14 kg 2023-01-31 00:00 weight_standard 319.98 lb
[2023-04-19] MEDS ORDERED: SODIUM CHLORIDE 0.9% 1,000 ML IV STA ×2 (10:13→11:34)
[2023-04-19 13:40] LABS: CALCIUM 9.1 mg/dL (8.5-10.3); CREATININE 1.5 mg/dL (0.4-1.0)
[2023-04-19 13:46] LABS: POTASSIUM 6.1 mmol/L (3.5-5.0)
[2023-04-19] MEDS ORDERED: FUROSEMIDE 40 MG/4 ML VIAL IVP STA (14:05)
[2023-04-19 15:17] VITALS: BP 129/56
[2023-04-19 16:22] LABS: CALCIUM 9.4 mg/dL (8.5-10.3); CREATININE 1.5 mg/dL (0.4-1.0); POTASSIUM 5.9 mmol/L (3.5-5.0)
== END 2023-04-19 16:47 | disposition home or self-care (01) ==
LOC: ED 08:36
DX: E87.5 Hyperkalemia (principal); E86.0 Dehydration; E11.65 Type 2 diabetes mellitus with hyperglycemia; I10 Essential (primary) hypertension; E78.00 Pure hypercholesterolemia, unspecified; Z79.4 Long term (current) use of insulin; Z79.84 Long term (current) use of oral hypoglycemic drugs; Z79.899 Other long term (current) drug therapy
CPT/HCPCS: 36415; 80048; 80053; 83690; 85025; 93005; 96361; 96374; 99284

== ENCOUNTER 2024-02-28 13:44 | Outpatient (CLI) | payer MEDICARE, OTHER ==
--- NOTE | 2024-02-28 14:41 | Sleep Patient Instructions ---
Sleep Center Visit Summary - Patient Visit Information Reason for Visit: Initial consult for evaluation of sleep disordered breathing and other sleep issues. - Patient Instructions Instructions Attached: Sleep Study Additional Instructions: You will be completing a sleep study, either an in-lab polysomnography (PSG) or home sleep study (HST). You will follow-up in the sleep care office after the sleep study is completed to hear the results and talk about therapy, if needed. You will be called by our office staff to schedule this appointment, but you may contact us with any questions. - Clinic Information Contact: [facility] [address] [place] [address] [email or web address] T: [phone]
--- NOTE | 2024-02-28 14:43 | SLEEP CARE CONSULTATION ---
Information from patient questionnaire entered by Carol Ann Portillo. I have reviewed and concur with the information entered by Carol Ann Portillo. This document represents the service I personally performed and the decisions made by me, Radha Chirinos ARNP. History of Present Illness Service Date and Time: 02/28/2024 1344 Reason for Visit: New patient Accompanied by: Yamilka Chief Complaint: reports: Unrefreshed sleep, Observed pauses in breathing Date of Onset: Always Usual bedtime: 12:30 PM Time it takes to fall asleep: just a few minutes (once head hits pillow) Snores at night: Yes Observed to quit breathing while asleep: No Sleeps alone due to snoring: No Number of times waking at night: Every 2 hours Reasons for waking at night: reports: Gasping for air (when sleeping on stomach), Pain, Bathroom. denies: Snoring Toss, Turn, or Twitch while sleeping: Yes Recalls having dreams: No Usually gets out of bed at: 5:00 Feels refreshed in the morning: No Morning headache: No Sleepy or fatigued during the day: Yes Ever fallen asleep while driving: No (has not driven in last year) Takes day naps: Yes (goes back to bed 10 AM for 12 noon daily) Dreams during day naps: No Prior sleep studies: No Additional HPI information: I had the pleasure of seeing GABRIELLE PULLIAM today regarding the possibility of her having a sleep disorder. Her current complaints are unrefreshed sleep and shortness of breath with activity. She says when she was in the hospital her oxygen levels would be around 88%. She has gained 20 pounds since then, September 2023. She feels sleepy during the day and fatigued. She says she gets up every 2 hours to use the bathroom during the night. Her family says she snores and it can fluctuate in loudness. Her sleeps in other room. - Parasomnia Symptoms Ever been unable to move upon waking from sleep: No Walks in sleep: No Talks in sleep: Yes (woke up yelling at someone twice) Ever acted out dreams in sleep: Yes (has hit the nightstand during the night) Ever felt weak in the knees when startled or emotional: No Bothered by creepy, crawly, restless sensations in legs: Yes (sometimes, just when she sits too much in one spot) Problems with memory or concentration: No Subjective Initial Axson Sleepiness Scale score: 13 (in 2023) Past Medical History Past Medical History: reports: Hypertension, Congestive Heart Failure, Diabetes, Arthritis, Insulin resistance Social History The patient is retired. Patient is and lives in [place]. Have you smoked in the past 12 months: No Alcohol use: No Caffeine use: No Family History Family history of sleep disordered breathing: Yes Family Hx Sleep Apnea: Mother: Snoring, Sleep apnea - Treated, Father: Snoring, Sleep apnea - Treated, Sibling: Snoring, Sleep apnea - Treated, Grandparent: Snoring, Sleep apnea - Treated Allergies and Home Medications Known drug allergies: Yes (as listed) Drug allergies reviewed: Yes Home medication list reviewed: Yes (as listed) Allergy and home medication list: Allergies levofloxacin Allergy (Intermediate, Verified 02/23/24 09:21) swelling in mouth rosiglitazone maleate * [From Avandia] Adverse Reaction (Verified 02/23/24 09:21) Edema Home Medications Medication Instructions Recorded Confirmed Last Taken Type Insulin Glargine,Hum.rec.anlog 75 unit SQ HS 04/28/17 02/28/24 Unknown History [Lantus Solostar] Insulin Lispro [Humalog] 100 unit SQ AC 04/28/17 02/28/24 Unknown History Empagliflozin [Jardiance] 25 mg PO DAILY 04/19/23 02/28/24 Unknown History Rosuvastatin Calcium 20 mg PO DAILY 04/19/23 02/28/24 Unknown History Furosemide [Lasix] 40 mg PO BID 09/05/23 02/28/24 Unknown History Aspirin See Rx Instructions .ROUTE .COMPLEX 02/28/24 02/28/24 Unknown History Eliquis See Rx Instructions .ROUTE .COMPLEX 02/28/24 02/28/24 Unknown History Vitamin B and D3 Review of Systems Weight gain over past 5 years: 100 Weight loss over past 5 years: 0 Cardiovascular: reports: high blood pressure, irregular heart rate or pulse, leg or foot swelling, have to sleep sitting up Respiratory: reports: shortness of breath Urinary: reports: incontinence, frequency Neurological: reports: gait or balance problems Psychiatric: reports: claustrophobia Ear/Nose/Throat: reports: nasal congestion, dry mouth/throat. denies: tonsillectomy Endocrine: reports: too hot or cold, excessive thirst, increased urination, other (Sugars too high) Musculoskeletal: reports: joint pain (/stiffness), neck pain, back pain, joint swelling, muscle pain or cramping, mobility problems Physical Exam Vital signs obtained and entered by: Radha Rielly NP Blood Pressure: 153/67 Cuff size: long (left arm) Heart Rate: 104 O2 Saturation: 91 Height: 5 ft 6 in Weight: 341 lb 12.8 oz Body Mass Index: 55.1 BMI Classification: Morbidly Obese Neck circumference: 19 (inches) Nostrils: patent to airflow Mouth and throat: narrow oropharynx Soft palate: long Hard palate: normal Uvula: normal Uvula visualization: 0% Mallampati Class IV Tongue: enlarged in size with teeth pelayo on lateral edges Tonsils: 2+ Neck: normal w/o lymphadenopathy or thyromegaly Heart: regular rate and rhythm Lungs: clear bilaterally Impression and Plan 1. Suspected Obstructive Sleep Apnea-Hypopnea Syndrome, as suggested by a history of loud and irregular snoring, frequent awakening during the night, unrefreshed sleep, and excessive daytime sleepiness. Narrow oropharynx and obesity are common predisposing factors for obstructive sleep apnea-hypopnea syndrome. I recommend proceeding to polysomnography to confirm the diagnosis and to assess severity. If the patient has significant sleep disordered breathing, a manual CPAP titration study will also be performed to find the optimal treatment pressure. I informed the patient of what the sleep studies involve and after some discussion, obtained agreement to proceed. The pathophysiology of obstructive sleep apnea-hypopnea syndrome was discussed with the patient and health risks of cardiovascular and cerebrovascular disease if not treated. Risks of drowsy driving discussed in detail and patient advised to avoid long distance driving and to puller out at the first sign of drowsiness. Patient agreed to plan. * Schedule polysomnography/HST * Avoid long distance driving or driving when feeling sleepy. * Avoid alcohol, sedative and muscle relaxant around bedtime. * Attempt to lose weight. * Review instructions provided by trained office staff on how to prepare for the sleep study. * Return for follow-up after sleep study completed. Counseling Topics: Weight loss health impact Plan: PSG and followup Visit Type: In Office Time Spent with Patient (minutes): 33 Provider Statement: I spent 100% of the Face to Face Visit with the patient with greater than 50% spent counseling the patient and coordination of care.
[2024-02-28 14:47] VITALS: BP 153/67; O2SAT 91
== END 2024-02-28 13:45 | disposition home or self-care (01) ==
LOC: SC 13:44
PROVIDERS: ATTEND Nurse Practitioner Family
DX: G47.10 Hypersomnia, unspecified (principal); R06.83 Snoring; G47.8 Other sleep disorders; E66.01 Morbid (severe) obesity due to excess calories; Z68.43 Body mass index [BMI] 50.0-59.9, adult
CPT/HCPCS: 99203; G0463; 99212

== ENCOUNTER 2024-05-02 22:07 | Outpatient (CLI) | payer MEDICARE, OTHER | END 2024-05-02 23:59 | disposition EMS.NT | LOC: EMS 22:07 | DX: Z03.89 Encounter for observation for other suspected diseases and conditions ruled out (principal) ==

== ENCOUNTER 2024-12-19 17:41 | Inpatient (IN) ==
--- NOTE | 2024-12-19 17:53 | ED Physician Documentation ---
History of Present Illness Stated complaint Stated Complaint: GLF Chief complaint Chief Complaint: Resp History obtained from History obtained from: Patient and Family Additonal information Additional information: 64-year-old woman with history of morbid obesity, CT with stent but no history of pulmonary disease, does live with a smoker though. EMS went out for noninjury falls a lift assist, they did vital signs and noted her sats to be in the high 80s. She says she has had a cough productive of clear sputum, no chest pain. No pedal edema. No fevers. She feels intermittently mildly short of breath. Meds/Allgy Home Medications Ambulatory Orders Medication Instructions Recorded Confirmed insulin glargine 100 unit/mL (3 100 unit subcut HS 04/28/17 12/19/24 mL) subcutaneous pen (Lantus Solostar U-100 Insulin) insulin lispro 100 unit/mL 100 unit subcut TID 04/28/17 12/19/24 subcutaneous solution (Humalog U-100 Insulin) empagliflozin 25 mg tablet 25 mg PO DAILY 04/19/23 12/19/24 (Jardiance) rosuvastatin 20 mg tablet 20 mg PO DAILY 04/19/23 12/19/24 furosemide 40 mg tablet 40 mg PO BID 09/05/23 12/19/24 apixaban 2.5 mg tablet (Eliquis) 2.5 mg PO BID 12/19/24 12/19/24 aspirin 81 mg tablet,delayed 81 mg PO DAILY 12/19/24 12/19/24 release Allergies Allergies Allergy/AdvReac Type Severity Reaction Status Date / Time levofloxacin Allergy Intermediate swelling Verified 12/19/24 17:58 in mouth ibuprofen AdvReac Emesis Verified 12/19/24 17:58 rosiglitazone maleate * AdvReac Edema Verified 12/19/24 17:58 (From [facility]) [facility] Active Problems All Active Problems (Updated 12/19/24 @ 20:26 by Fish Gutiérrez DNP) Acute on chronic hypoxic respiratory failure (Acute) Respiratory failure (Acute) Congestive heart failure (Acute) Local infection of the skin and subcutaneous tissue, unspecified (Acute) Lymphedema, not elsewhere classified (Acute) Non-pressure chronic ulcer of other part of left lower leg with fat layer exposed (Acute) Type 2 diabetes mellitus with other skin ulcer (Acute) Non-pressure chronic ulcer right lower leg, limited to breakdown skin (Acute) Non-pressure chronic ulcer of right ankle with fat layer exposed (Acute) Non-pressure chronic ulcer of other part of left lower leg limited to breakdown of skin (Acute) Non-pressure chronic ulcer of other part of right lower leg with fat layer exposed (Acute) Venous insufficiency (chronic) (peripheral) (Acute) Non-pressure chronic ulcer of other part of right foot with fat layer exposed (Acute) Type 2 diabetes mellitus with foot ulcer (Acute) Medical History Medical History (Updated 12/19/24 @ 20:26 by Fish Gutiérrez DNP) HLD (hyperlipidemia) Myocardial infarction Surgical History Surgical History (Updated 12/19/24 @ 18:10 by Tod Delgado, RN) H/O heart artery stent Social History Social History (Updated 12/19/24 @ 18:10 by Tod Delgado, RN) Smoking Status: Never smoker Do you dip or chew tobacco?: No Do you vape?: No Living arrangement: At home Living Condition: With family Relationship: Home Mobility Equipment: Cane and Walker Do you feel safe in your home environment?: Yes Suffered physical, verbal, emotional, or financial abuse?: No History of Abuse: No ETOH Use: None Substance Use: denies use Exam Constitutional normal general appearance and no apparent distress Respiratory Squeaky expiratory wheezes throughout without labored breathing. Cardiovascular normal heart rate noted, regular rhythm noted and no murmur Extremities Mild venous stasis changes in the lower extremities. Results Vitals Vitals: Vital Signs - 24 hr 12/19/24 17:53 12/19/24 18:05 12/19/24 18:10 Temperature 36.7 C Temperature Source Temporal Artery Scan Pulse Rate 87 84 Respiratory Rate 20 20 Blood Pressure 137/59 H 137/59 H O2 Saturation 95 95 Oxygen Delivery Method Nasal Cannula O2 Source Nasal cannula Nasal cannula Oxygen Flow Rate 2 If not protocol: Oxygen Flow, liters/minute 2 2 Pain Intensity 0 3 12/19/24 18:13 12/19/24 18:20 12/19/24 19:00 Temperature Temperature Source Pulse Rate 81 96 Respiratory Rate 22 18 Blood Pressure 137/59 H O2 Saturation 86 L Oxygen Delivery Method Nasal Cannula O2 Source Room air Oxygen Flow Rate If not protocol: Oxygen Flow, liters/minute 2 Pain Intensity 2 12/19/24 19:01 12/19/24 19:30 12/19/24 20:00 Temperature Temperature Source Pulse Rate 92 98 95 Respiratory Rate 18 22 20 Blood Pressure 102/50 L 102/68 O2 Saturation 92 94 96 Oxygen Delivery Method O2 Source Nasal cannula Nasal cannula Nasal cannula Oxygen Flow Rate If not protocol: Oxygen Flow, liters/minute 2 2 2 Pain Intensity 2 Oxygen O2 Source Nasal cannula Oxygen Flow Rate 2 EKG (time done) 1952: EKG releavant findings:: EKG personally interpreted by author of this note. Relevant findings are: Normal sinus rhythm with rate of 95, she has Q waves inferior and anterior without ST elevation or depression. Labs Labs: Laboratory Tests 12/19/24 20:03 WBC 7.9 RBC 3.75 L Hgb 8.8 L Hct 32.9 L MCV 87.7 MCH 23.5 L MCHC 26.7 L RDW 17.3 H Plt Count 250 MPV 8.5 Neut # (Auto) 6.5 Lymph # (Auto) 0.5 L [place] # (Auto) 0.8 Eos # (Auto) 0.0 Baso # (Auto) 0.0 Absolute Nucleated RBC 0.02 Nucleated RBC % 0.3 VBG pH 7.401 VBG pCO2 47.9 VBG pO2 35.2 VBG HCO3 30.0 H VBG Total CO2 31.5 H VBG O2 Saturation 51.0 L VBG Base Excess 5.0 H Sodium 137 Potassium 4.5 Chloride 100 L Carbon Dioxide 30 Anion Gap 7.0 BUN 27 H Creatinine 1.1 Estimated GFR (MDRD) 50 L Glucose 244 H Calcium 9.4 Total Bilirubin 0.6 AST 12 ALT 11 Alkaline Phosphatase 68 B-Natriuretic Peptide 214 H Total Protein 7.1 Albumin 3.7 Globulin 3.4 Albumin/Globulin Ratio 1.1 Rads (name of study) 2 view chest x-ray demonstrates findings of pulmonary edema with potential right hilar mass with CT recommended.: Relevant Findings:: Final report received and EMP independent interpretation of test (CHF) PD Medical Decision Making ED course ED course: 64-year-old woman had a fall without injury and EMS was summoned and noted her to be hypoxemic. She has had 3 months of cough that is productive of clear sputum and intermittent shortness of breath. She initially told me she had no pulmonary problems and was wheezy so was administered DuoNeb. She told the respiratory therapist though that she had a nebulizer at home just not the medication to go with it. Subsequently after a DuoNeb we tried to titrate down the oxygen but she still had a significant oxygen requirement going down to about 85 on room air. Chest x-ray demonstrating a combination of probably CHF as well as question of a hilar mass. Findings discussed with patient and she was amenable to staying in the hospital for echo, CT, and diuresis. I do not think she needs an ischemic workup given the chronicity of her symptoms and lack of chest pain. Spoke with VIKTOR Gutiérrez for observation at 7:44 PM. Lab work notable for CBC showing moderate anemia with microcytic indices. CMP showing hyperglycemia and CKD actually better than prior, venous blood gas unremarkable. BNP elevated at 214. CT of the chest pending on admission. The patient and family are counseled as to the diagnosis and need for admission. This document was made in part using voice recognition software, while efforts are made to proofread this document, sound alike an grammatical errors may occur. Discharge Plan Discharge Patient Disposition: ED Place in Observation Condition: Stable Clinical Impression: Congestive heart failure Qualifiers: Heart failure type: unspecified Heart failure chronicity: acute Qualified Code(s): I50.9 - Heart failure, unspecified Respiratory failure Qualifiers: Chronicity: acute Respiratory failure complication: hypoxia Qualified Code(s): J96.01 - Acute respiratory failure with hypoxia Interventions: ED Admission Assessment Last Done: 12/19/24 21:46
[2024-12-19] MEDS: IPRATROPIUM/ALBUTEROL 3 ML NEB INH STA (18:13)
--- NOTE | 2024-12-19 19:20 | XRAY Report ---
PROCEDURE: XR Chest 2V INDICATIONS: cough TECHNIQUE: 2 views of the chest were acquired. COMPARISON: None. FINDINGS: Surgical changes and devices: None. Lungs and pleura: Peribronchial cuffing with increased interstitial markings. No effusions or pneumo thorax. Questionable 3 cm right hilar mass. Mediastinum: Cardiomegaly. Normal contour otherwise. Bones and chest wall: No suspicious bony lesions. Overlying soft tissues appear unremarkable. IMPRESSION: Peribronchial cuffing with increased interstitial markings, suggestive of mild to moderate pulmonary edema. Questionable 3 cm right hilar mass. Recommend dedicated nonemergent chest CT unless otherwise indicat ed. Reviewed by: Aidan Saldaña MD on 12/19/2024 7:19 PM PST Approved by: Aidan Saldaña MD on 12/19/2024 7:19 PM PST Station ID: [id number]
[2024-12-19] MEDS: FUROSEMIDE 40 MG/4 ML VIAL IVP STA (20:08)
[2024-12-19 20:09] LABS: BASOPHILS % (AUTO) 0.5 %; EOSINOPHILS % (AUTO) 0.4 %; HCT - HEMATOCRIT 32.9 % (37.0-47.0); HGB - HEMOGLOBIN 8.8 g/dL (12.0-16.0); LYMPHOCYTES # (AUTO) 0.5 10^3/uL (1.5-3.5); LYMPHOCYTES % (AUTO) 5.8 %; MEAN CORPUSCULAR HEMOGLOBIN 23.5 pg (27.0-31.0); MEAN CORPUSCULAR HGB CONC 26.7 g/dL (32.0-36.0); MEAN CORPUSCULAR VOLUME 87.7 fL (81.0-99.0); MEAN PLATELET VOLUME 8.5 fL (7.9-10.8); MONOCYTES # (AUTO) 0.8 10^3/uL (0.0-1.0); MONOCYTES % (AUTO) 9.8 %; NEUTROPHILS # (AUTO) 6.5 10^3/uL (1.5-6.6); NEUTROPHILS % (AUTO) 82.7 %; NRBC ABSOLUTE COUNT (AUTO) 0.02 x10^3/uL; NUCLEATED RED BLOOD CELLS AUTO 0.3 /100WBC; PLT - PLATELET COUNT 250 10^3/uL (130-450); RED BLOOD COUNT 3.75 10^6/uL (4.20-5.40); RED CELL DISTRIBUTION WIDTH 17.3 % (12.0-15.0); WHITE BLOOD COUNT 7.9 x10^3/uL (4.8-10.8)
[2024-12-19] MEDS ORDERED: iohexoL-300 100 ML VIAL ONE (20:10)
[2024-12-19 20:13] LABS: VBG PCO2 47.9 mmHg (41-51); VBG PH 7.401 (7.31-7.41); VBG PO2 35.2 mmHg (25-47); VBG TOTAL CO2 31.5 mmol/L (24-29)
[2024-12-19 20:22] LABS: ALBUMIN 3.7 g/dL (3.2-5.5); ALBUMIN/GLOBULIN RATIO 1.1 (1.0-2.2); BILIRUBIN,TOTAL 0.6 mg/dL (0.2-1.0); CALCIUM 9.4 mg/dL (8.5-10.3); CREATININE 1.1 mg/dL (0.6-1.3); POTASSIUM 4.5 mmol/L (3.5-4.5); TOTAL PROTEIN 7.1 g/dL (6.4-8.9)
--- NOTE | 2024-12-19 20:30 | HISTORY & PHYSICAL EXAMINATION ---
Chief Complaint Chief Complaint Chief Complaint: Shortness of breath History of Present Illness Admitted From Admitted From:: Home with History Obtained From History obtained from: Patient interview History of Present Illness HPI Comment/Other: 64-year-old female with PMH significant for [place] with stents a year ago. Reports no history of lung disease, but does say that she has a as needed neb at home. She experienced a fall today. She was evaluated by EMS and noted to have oxygen saturation in the high 80s. She has had cough productive of clear sputum for several months and intermittent short of breath. In the ER, chest x-ray was performed which showed peribronchial cuffing with increased interstitial markings suggestive of mild to moderate pulmonary edema as well as a questionable 3 cm right hilar mass. ED ordered diuretics and CT chest and contacted hospitalist for observation placement for acute on chronic hypoxic respiratory failure Meds/Allgy Home Medications Ambulatory Orders Medication Instructions Recorded Confirmed insulin glargine 100 unit/mL (3 100 unit subcut HS 04/28/17 12/19/24 mL) subcutaneous pen (Lantus Solostar U-100 Insulin) insulin lispro 100 unit/mL 100 unit subcut TID 04/28/17 12/19/24 subcutaneous solution (Humalog U-100 Insulin) empagliflozin 25 mg tablet 25 mg PO DAILY 04/19/23 12/19/24 (Jardiance) rosuvastatin 20 mg tablet 20 mg PO DAILY 04/19/23 12/19/24 furosemide 40 mg tablet 40 mg PO BID 09/05/23 12/19/24 apixaban 2.5 mg tablet (Eliquis) 2.5 mg PO BID 12/19/24 12/19/24 aspirin 81 mg tablet,delayed 81 mg PO DAILY 12/19/24 12/19/24 release Allergies Allergies Allergy/AdvReac Type Severity Reaction Status Date / Time levofloxacin Allergy Intermediate swelling Verified 12/19/24 17:58 in mouth ibuprofen AdvReac Emesis Verified 12/19/24 17:58 rosiglitazone maleate * AdvReac Edema Verified 12/19/24 17:58 (From Mathew) [facility] Active Problems All Active Problems (Updated 12/19/24 @ 20:26 by Fish Gutiérrez DNP) Acute on chronic hypoxic respiratory failure (Acute) Respiratory failure (Acute) Congestive heart failure (Acute) Local infection of the skin and subcutaneous tissue, unspecified (Acute) Lymphedema, not elsewhere classified (Acute) Non-pressure chronic ulcer of other part of left lower leg with fat layer exposed (Acute) Type 2 diabetes mellitus with other skin ulcer (Acute) Non-pressure chronic ulcer right lower leg, limited to breakdown skin (Acute) Non-pressure chronic ulcer of right ankle with fat layer exposed (Acute) Non-pressure chronic ulcer of other part of left lower leg limited to breakdown of skin (Acute) Non-pressure chronic ulcer of other part of right lower leg with fat layer exposed (Acute) Venous insufficiency (chronic) (peripheral) (Acute) Non-pressure chronic ulcer of other part of right foot with fat layer exposed (Acute) Type 2 diabetes mellitus with foot ulcer (Acute) Medical History Medical History (Updated 12/19/24 @ 20:26 by Fish Gutiérrez DNP) HLD (hyperlipidemia) Myocardial infarction Surgical History Surgical History (Updated 12/19/24 @ 18:10 by Tod Delgado RN) H/O heart artery stent Social History Social History (Updated 12/19/24 @ 18:10 by Tod Delgado RN) Smoking Status: Never smoker Do you dip or chew tobacco?: No Do you vape?: No Living arrangement: At home Living Condition: With family Relationship: Home Mobility Equipment: Cane and Walker Do you feel safe in your home environment?: Yes Suffered physical, verbal, emotional, or financial abuse?: No History of Abuse: No ETOH Use: None Substance Use: denies use POLST Patient has POLST: No Review of Systems Status of ROS: 10 or more systems reviewed and unremarkable except as noted in history and below Constitutional Reports: Chills; Denies: Fever Cardiovascular Reports: shortness of breath with exertion; Denies: Irregular heart rate, chest pain or palpitations Respiratory Reports: Shortness of breath, Cough and Sputum production Gastrointestinal Denies: Abdominal pain or Abdominal distention Genitourinary Denies: Painful urination Neurological Denies: Headache or General weakness Exam Constitutional normal general appearance, no apparent distress and abnormal body habitus (obese) HENMT normocephalic and head/scalp atraumatic Eyes PERRL Neck/C-Spine visual inspection normal Chest inspection of chest normal Respiratory breath sounds equal bilaterally Breath sounds diminished due to body habitus, some expiratory wheezing Cardiovascular normal heart rate noted, regular rhythm noted and edema noted Gastrointestinal Grossly protuberant abdomen, nontender Neurology GCS 15 Psychiatry oriented x3 Skin Chronic discoloration BLE related to swelling Conclusion/Plan Problem List (1) Acute on chronic hypoxic respiratory failure: Plan: Most likely secondary to heart failure O2 as needed Manage heart failure as below She had some wheezing on exam. She reports no history of smoking, but that she does live with a smoker. I will empirically start her on a 40 mg prednisone daily burst x 4 days (2) Congestive heart failure: Plan: Check echo Lasix IV push ordered by ER provider 40 mg IV Lasix BID Strict intake and output Qualifiers: Heart failure chronicity: acute Heart failure type: unspecified Q ualified Code(s): I50.9 - Heart failure, unspecified (3) Type 2 diabetes mellitus with other skin ulcer: Plan: Preliminary med rec shows that she is on Lantus and lispro Check A1c SSI Qualifiers: Diabetes mellitus usp insulin use: with usp use Qualified Code(s): E11.622 - Type 2 diabetes mellitus with other skin ulcer; Z79.4 - shelter (current) use of insulin Plan Placed in observation Full code Her is her surrogate decision maker Lab Results 12/19/24 20:03 12/19/24 20:03 Core Measures Anticipated LOS I expect patient to be DC'd or transferred within 96 hours.: Yes DVT/VTE - Prophylaxis VTE/DVT Prophylaxis med ordered at admit?: Yes
[2024-12-19] MEDS: iohexoL-300 100 ML VIAL IVP ONE (21:26)
--- NOTE | 2024-12-19 21:51 | CT Report ---
PROCEDURE: CT Chest W INDICATIONS: abd cxr CONTRAST: 100 ML OMNI TECHNIQUE: After the administration of intravenous contrast, a CT scan of the chest was performed. Images were recorded and evaluated at appropriate window settings. Reformats: axial MIP of the chest, coronal and sagittal. For radiation dose reduction, the following was used: automated exposure control, adjustme nt of mA and/or kV according to patient size. COMPARISON: Same-day chest x-ray FINDINGS: Image quality: Diagnostic. Chest wall and lower neck: No thyroid nodule which requires sonographic follow up. No breast mass. No axillary or supraclavicular adenopathy by size. Lungs and pleura: Small right pleural effusion and adjacent atelectasis versus consolidation. Mild le ft basilar atelectasis.. Right middle lobe opacity measuring 9 mm (10/182). Mediastinum: Heart size is mildly enlarged. Severe coronary calcifications. No pericardial effusion. No large vessel abnormality. No mediastinal adenopathy by size criteria. Bones: No aggressive osseous abnormality. Multilevel degenerative changes of the spine. Decreased oss eous mineralization Upper Abdomen: Left adrenal nodule measuring up to 4.6 cm with some internal fat density. Cystic stru cture within the pancreas measuring 1.3 cm. IMPRESSION: 1.No right hilar mass. The abnormality seen on chest x-ray likely corresponds to overlapping vessels. 2.Small right pleural effusion with adjacent atelectasis versus consolidation. Right middle lobe opac ity measuring 9 mm which may be infectious in etiology, recommend 3 month follow-up chest CT to asses s resolution. 3.Left adrenal nodule measuring up to 4.6 cm with some internal fat density, may represent a myelolip jose. However, given size, malignancy is not excluded. Nonurgent MRI or CT adrenal protocol can be obt ained for further evaluation. 4.Cystic structure within the pancreas measuring 1.3 cm, may represent an IPMN. Recommend nonurgent p ancreatic protocol MRI for further evaluation. Reviewed by: Stas Gibbons MD on 12/19/2024 9:50 PM PST Approved by: Stas Gibbons MD on 12/19/2024 9:50 PM PST Station ID: [id number]
[2024-12-19] MEDS ORDERED: ACETAMINOPHEN 325 MG TABLET PO PRN (22:07)
[2024-12-19] MEDS ORDERED: ONDANSETRON ODT 4 MG TABLET TL PRN (22:07)
[2024-12-19] MEDS ORDERED: ONDANSETRON 4 MG/2 ML VIAL IVP PRN (22:07)
[2024-12-19] MEDS ORDERED: SODIUM CHLORIDE FLUSH 0.9% 10 ML SYRINGE IVP PRN (22:07)
[2024-12-19] MEDS: APIXABAN 2.5 MG TABLET PO SCH (22:34)
[2024-12-19] MEDS: INSULIN LISPRO 300 UNIT/3 ML PEN SUBQ SCH (22:35)
[2024-12-20 06:03] LABS: BASOPHILS % (AUTO) 0.7 %; EOSINOPHILS % (AUTO) 0.2 %; HCT - HEMATOCRIT 32.4 % (37.0-47.0); HGB - HEMOGLOBIN 8.7 g/dL (12.0-16.0); LYMPHOCYTES # (AUTO) 0.5 10^3/uL (1.5-3.5); MEAN CORPUSCULAR HEMOGLOBIN 23.4 pg (27.0-31.0); MEAN CORPUSCULAR HGB CONC 26.9 g/dL (32.0-36.0); MEAN CORPUSCULAR VOLUME 87.1 fL (81.0-99.0); MEAN PLATELET VOLUME 9.2 fL (7.9-10.8); MONOCYTES % (AUTO) 16.7 %; NEUTROPHILS # (AUTO) 4.3 10^3/uL (1.5-6.6); NEUTROPHILS % (AUTO) 72.6 %; PLT - PLATELET COUNT 247 10^3/uL (130-450); RED BLOOD COUNT 3.72 10^6/uL (4.20-5.40); RED CELL DISTRIBUTION WIDTH 17.5 % (12.0-15.0)
[2024-12-20] MEDS: FUROSEMIDE 40 MG/4 ML VIAL IVP SCH (06:10)
[2024-12-20] MEDS: SODIUM CHLORIDE FLUSH 0.9% 10 ML SYRINGE IVP SCH (06:10)
[2024-12-20 06:23] LABS: CALCIUM 9.2 mg/dL (8.5-10.3); CREATININE 1.2 mg/dL (0.6-1.3); POTASSIUM 4.2 mmol/L (3.5-4.5)
[2024-12-20] MEDS: predniSONE 20 MG TABLET PO SCH (09:45)
[2024-12-20] MEDS: ASPIRIN EC 81 MG TABLET PO SCH (09:46)
[2024-12-20] MEDS: ATORVASTATIN 40 MG TABLET PO SCH (09:46)
[2024-12-20 10:02] LABS: ESTIMATED AVERAGE GLUCOSE 157 mg/dL (70-100); HEMOGLOBIN A1c% 7.1 % (4.27-6.07)
--- NOTE | 2024-12-20 15:09 | PROVIDER PROGRESS NOTE ---
Subjective Prog Note Date Prog Note Date: 12/20/24 Subjective Pt reports feeling: Improved Current Medications Current Medications Current Medications: Current Medications Generic Name Dose Route Start Last Admin Trade Name Freq PRN Reason Stop Dose Admin Acetaminophen 650 mg 12/19/24 22:07 Acetaminophen 325 Mg Tablet PO Q4HR PRN Pain 1 to 4, or Fever Apixaban 2.5 mg 12/19/24 22:07 12/20/24 09:46 Apixaban 2.5 Mg Tablet PO 2.5 mg BID TREY Administration Aspirin 81 mg 12/20/24 09:00 12/20/24 09:46 Aspirin Ec 81 Mg Tablet PO 81 mg DAILY TREY Administration Atorvastatin Calcium 40 mg 12/20/24 09:00 12/20/24 09:46 Atorvastatin 40 Mg Tablet PO 40 mg DAILY TRYE Administration Furosemide 40 mg 12/20/24 06:00 12/20/24 14:29 Furosemide 40 Mg/4 Ml Vial IVP 40 mg BIDDIURETIC TREY Administration Insulin Glargine-yfgn 20 unit 12/20/24 21:00 Insulin Glargine-Yfgn 300 Unit/3 Ml Pen SUBQ QPM [facility] Insulin Human Lispro 1 - 9 unit 12/19/24 22:07 12/20/24 12:36 Insulin Lispro 300 Unit/3 Ml Pen SUBQ 5 unit 0800,1200,1700,2100 TREY Administration Protocol Ondansetron HCl 4 mg 12/19/24 22:07 Ondansetron Odt 4 Mg Tablet TL Q6HR PRN Nausea / Vomiting Ondansetron HCl 4 mg 12/19/24 22:07 Ondansetron 4 Mg/2 Ml Vial IVP Q6HR PRN Nausea / Vomiting Prednisone 40 mg 12/20/24 08:00 12/20/24 09:45 Prednisone 20 Mg Tablet PO 12/23/24 08:01 40 mg DAILYWM TREY Administration Sodium Chloride 10 ml 12/19/24 22:07 Sodium Chloride Flush 0.9% 10 Ml Syringe IVP PRN PRN NEEDED PER PROVIDER ORDERS Sodium Chloride 10 ml 12/20/24 01:00 12/20/24 09:46 Sodium Chloride Flush 0.9% 10 Ml Syringe IVP 10 ml 0100,0900,1700 TREY Administration Objective Vital Signs/Intake & Output Reviewed Vital Signs: Yes Vital Signs: Vital Signs x48h Temp Pulse Resp BP Pulse Ox O2 Flow Rate 12/20/24 12:21 37.1 C 101 H 20 125/57 L 97 3.5 12/20/24 09:00 36.7 C 98 20 152/57 H 90 L 3.5 Intake & Output: Intake & Output 12/17/24 12/18/24 12/19/24 12/20/24 23:59 23:59 23:59 23:59 Intake Total 100 / 100 620 / 620 Output Total 950 / 950 Balance 100 / 100 -330 / -330 Weight (kg) 149.5 kg 149.5 kg Objective General Appearance: positive No acute distress and Alert Eyes Bilateral: positive Normal inspection ENT: positive ENT inspection nml Neck: positive Nml inspection Respiratory: positive Chest non-tender and Wheezes Cardiovascular: positive Tachycardia Abdomen: positive Non-tender Skin: positive Color nml Extremities: positive Non-tender Neurologic/Psychiatric: positive Oriented x3 Lab Results 12/20/24 05:09 12/20/24 05:09 Other Labs: Lab Results x24hrs 12/20/24 12/20/24 12/20/24 Range/Units 11:31 07:30 05:09 WBC 6.0 (4.8-10.8) x10^3/uL RBC 3.72 L (4.20-5.40) 10^6/uL Hgb 8.7 L (12.0-16.0) g/dL Hct 32.4 L (37.0-47.0) % MCV 87.1 (81.0-99.0) fL MCH 23.4 L (27.0-31.0) pg MCHC 26.9 L (32.0-36.0) g/dL RDW 17.5 H (12.0-15.0) % Plt Count 247 (130-450) 10^3/uL MPV 9.2 (7.9-10.8) fL Neut # (Auto) 4.3 (1.5-6.6) 10^3/uL Lymph # (Auto) 0.5 L (1.5-3.5) 10^3/uL [place] # (Auto) 1.0 (0.0-1.0) 10^3/uL Eos # (Auto) 0.0 (0.0-0.7) 10^3/uL Baso # (Auto) 0.0 (0.0-0.1) 10^3/uL Absolute Nucleated RBC 0.00 x10^3/uL Nucleated RBC % 0.0 /100WBC VBG pH (7.31-7.41) VBG pCO2 (41-51) mmHg VBG pO2 (25-47) mmHg VBG HCO3 (23-28) mmol/L VBG Total CO2 (24-29) mmol/L VBG O2 Saturation (60-80) % VBG Base Excess (-2 - +2) mmol/L Sodium 139 (135-145) mmol/L Potassium 4.2 (3.5-4.5) mmol/L Chloride 101 (101-111) mmol/L Carbon Dioxide 30 (21-32) mmol/L Anion Gap 8.0 (6-13) BUN 28 H (6-20) mg/dL Creatinine 1.2 (0.6-1.3) mg/dL Estimated GFR (MDRD) 46 L (>89) Glucose 195 H (74-104) mg/dL POC Whole Bld Glucose 249 180 (70-100) mg/dL Estimat Average Glucose 157 H (70-100) mg/dL Hemoglobin A1c % 7.1 H (4.27-6.07) % Calcium 9.2 (8.5-10.3) mg/dL Total Bilirubin (0.2-1.0) mg/dL AST (10-42) IU/L ALT (10-60) IU/L Alkaline Phosphatase (42-121) IU/L B-Natriuretic Peptide (5-100) pg/mL Total Protein (6.4-8.9) g/dL Albumin (3.2-5.5) g/dL Globulin (2.1-4.2) g/dL Albumin/Globulin Ratio (1.0-2.2) 12/19/24 12/19/24 Range/Units 22:15 20:03 WBC 7.9 (4.8-10.8) x10^3/uL RBC 3.75 L (4.20-5.40) 10^6/uL Hgb 8.8 L (12.0-16.0) g/dL Hct 32.9 L (37.0-47.0) % MCV 87.7 (81.0-99.0) fL MCH 23.5 L (27.0-31.0) pg MCHC 26.7 L (32.0-36.0) g/dL RDW 17.3 H (12.0-15.0) % Plt Count 250 (130-450) 10^3/uL MPV 8.5 (7.9-10.8) fL Neut # (Auto) 6.5 (1.5-6.6) 10^3/uL Lymph # (Auto) 0.5 L (1.5-3.5) 10^3/uL [place] # (Auto) 0.8 (0.0-1.0) 10^3/uL Eos # (Auto) 0.0 (0.0-0.7) 10^3/uL Baso # (Auto) 0.0 (0.0-0.1) 10^3/uL Absolute Nucleated RBC 0.02 x10^3/uL Nucleated RBC % 0.3 /100WBC VBG pH 7.401 (7.31-7.41) VBG pCO2 47.9 (41-51) mmHg VBG pO2 35.2 (25-47) mmHg VBG HCO3 30.0 H (23-28) mmol/L VBG Total CO2 31.5 H (24-29) mmol/L VBG O2 Saturation 51.0 L (60-80) % VBG Base Excess 5.0 H (-2 - +2) mmol/L Sodium 137 (135-145) mmol/L Potassium 4.5 (3.5-4.5) mmol/L Chloride 100 L (101-111) mmol/L Carbon Dioxide 30 (21-32) mmol/L Anion Gap 7.0 (6-13) BUN 27 H (6-20) mg/dL Creatinine 1.1 (0.6-1.3) mg/dL Estimated GFR (MDRD) 50 L (>89) Glucose 244 H (74-104) mg/dL POC Whole Bld Glucose 233 (70-100) mg/dL Estimat Average Glucose (70-100) mg/dL Hemoglobin A1c % (4.27-6.07) % Calcium 9.4 (8.5-10.3) mg/dL Total Bilirubin 0.6 (0.2-1.0) mg/dL AST 12 (10-42) IU/L ALT 11 (10-60) IU/L Alkaline Phosphatase 68 (42-121) IU/L B-Natriuretic Peptide 214 H (5-100) pg/mL Total Protein 7.1 (6.4-8.9) g/dL Albumin 3.7 (3.2-5.5) g/dL Globulin 3.4 (2.1-4.2) g/dL Albumin/Globulin Ratio 1.1 (1.0-2.2) Assessment/Plan Problem List (1) Acute on chronic hypoxic respiratory failure: Impression: She is on 3.5 L at time of my interview. I attempted to wean her down without success. I am continuing her on a prednisone burst as well as managing CHF as below Changed to inpatient status today (2) Congestive heart failure: Impression: Echocardiogram has been completed, awaiting read I am continuing Lasix 40 mg IV twice daily, while monitoring her kidney function. Her creatinine was 1.1 on admission, 1.2 now. Being cautious with her IV Lasix due to this. Continue strict I&O, daily weight Qualifiers: Heart failure chronicity: acute Heart failure type: unspecified Q ualified Code(s): I50.9 - Heart failure, unspecified (3) Type 2 diabetes mellitus with other skin ulcer: Impression: Patient states she takes 100 units of Lantus twice daily in addition to significant meal dosing. [facility] I will go ahead and start her on 20 units of Lantus in addition to her SSI achs. She will need evaluation by diabetes education team when they are here tomorrow Qualifiers: Diabetes mellitus correction insulin use: with correction use Qualified Code(s): E11.622 - Type 2 diabetes mellitus with other skin ulcer; Z79.4 - intermodal dispatcher (current) use of insulin
[2024-12-20] MEDS ORDERED: INSULIN LISPRO 300 UNIT/3 ML PEN SUBQ SCH (17:00)
[2024-12-20] MEDS: INSULIN LISPRO 300 UNIT/3 ML PEN SUBQ SCH ×2 (17:04→21:35)
[2024-12-20] MEDS: INSULIN GLARGINE-YFGN 300 UNIT/3 ML PEN SUBQ SCH (17:25)
[2024-12-20] MEDS ORDERED: INSULIN GLARGINE-YFGN 300 UNIT/3 ML PEN SUBQ SCH ×2 (21:00)
[2024-12-21 05:56] LABS: BASOPHILS % (AUTO) 0.3 %; HGB - HEMOGLOBIN 8.7 g/dL (12.0-16.0); LYMPHOCYTES # (AUTO) 0.6 10^3/uL (1.5-3.5); LYMPHOCYTES % (AUTO) 14.9 %; MEAN CORPUSCULAR HEMOGLOBIN 23.1 pg (27.0-31.0); MEAN CORPUSCULAR HGB CONC 27.2 g/dL (32.0-36.0); MEAN CORPUSCULAR VOLUME 84.9 fL (81.0-99.0); MEAN PLATELET VOLUME 9.1 fL (7.9-10.8); MONOCYTES # (AUTO) 0.6 10^3/uL (0.0-1.0); MONOCYTES % (AUTO) 16.8 %; NEUTROPHILS # (AUTO) 2.6 10^3/uL (1.5-6.6); NEUTROPHILS % (AUTO) 67.2 %; PLT - PLATELET COUNT 224 10^3/uL (130-450); RED BLOOD COUNT 3.77 10^6/uL (4.20-5.40); RED CELL DISTRIBUTION WIDTH 17.1 % (12.0-15.0); WHITE BLOOD COUNT 3.8 x10^3/uL (4.8-10.8)
[2024-12-21 06:13] LABS: CALCIUM 8.7 mg/dL (8.5-10.3); CREATININE 1.1 mg/dL (0.6-1.3); POTASSIUM 3.8 mmol/L (3.5-4.5)
[2024-12-21] MEDS: INSULIN GLARGINE-YFGN 300 UNIT/3 ML PEN SUBQ ONE (11:24)
--- NOTE | 2024-12-21 11:39 | PHARMACY PROGRESS NOTE ---
Best Possible Medication History Admit Date and Time: 12/20/24 1537 Home Medications Medication Instructions Recorded Confirmed Type insulin glargine 100 unit/mL (3 100 unit subcut BID 04/28/17 12/20/24 History mL) subcutaneous pen (Lantus Solostar U-100 Insulin) insulin lispro 100 unit/mL 60 unit subcut TIDWM 04/28/17 12/20/24 History subcutaneous solution (Humalog U-100 Insulin) empagliflozin 25 mg tablet 25 mg PO DAILY 04/19/23 12/19/24 History (Jardiance) rosuvastatin 20 mg tablet 20 mg PO DAILY 04/19/23 12/19/24 History furosemide 40 mg tablet 40 mg PO DAILY 09/05/23 12/20/24 History apixaban 2.5 mg tablet (Eliquis) 2.5 mg PO BID 12/19/24 12/19/24 History aspirin 81 mg tablet,delayed 81 mg PO DAILY 12/19/24 12/19/24 History release Processed by: Pharmacy Medications reviewed in ED?: No Medication History completed: Yes Patient Interview: Completed [facility] Statement: As the person ultimately responsible for medication therapy, providers are able to order a medication from an existing home medication list in [facility] via the "Reconcile Routine" prior to Confirmation of that medication by technical support agent. Such practice is discouraged except when the physician, in their clinical judgment, deems that a medical need exists for a medication without regard to previous use.
--- NOTE | 2024-12-21 14:05 | PT Plan of Care ---
PT Plan of Care Physical Therapy Plan of Care: Diagnosis Diagnosis ARF Diagnosis GLF Referring Provider Fish Gutiérrez Patient Status Inpatient Chief Complaint Chief Complaint SOA, weak Onset of Chief Complaint [employer] Medical History (Updated 12/19/24 @ 20:26 by Fish Gutiérrez DNP) HLD (hyperlipidemia) Myocardial infarction Surgical History (Updated 12/19/24 @ 18:10 by Tod Delgado, RN) H/O heart artery stent Assessment Assessment Pt is a pleasant 64yo F referred for PT eval d/t limited mobility, ARF, and GLF at home. Pt lives with and granddaughter, the latter is in room throughout eval. Pt reports she normally uses a wc at home but is able to walk using FWW or 4WW to transfer in/out of wc. Has support from and granddtr as needed but has not been on home O2 before per pt report. Upon PT eval, pt on 2L O2 via NC, sats 90-95% at rest. Transfers and amb with FWW require SBA only. Pt reports increased BL hip discomfort with prolonged standing but no report of SOA. Desats to 88% with activity but recovers to 90% or higher within less than 1 min. When medically clear, PT rec dc home with HHPT/OT/RN for home safety assessment and assistance with O2 management if pt is dc'd on O2. Pt reports feeling confident about dc'ing home with HH services and has all needed DME/AD. Eval only, no further acute treatment indicated. PT Plan of Care Frequency Evaluation only, no further P.T. Discharge Recommendations Discharge Location Previous Living Situation Support/Services Needed Home Health P.T. Transport Needs at Discharge Personal vehicle
--- NOTE | 2024-12-21 14:12 | Discharge Summary ---
Discharge Summary Admit Date: 12/19/24 Discharge Date: 12/21/24 Discharging Provider: Fish Gutiérrez NP Primary Care Provider: Jamee Harris Code Status: Attempt Resuscitation DIAGNOSES Admission Diagnoses: Acute on chronic hypoxic respiratory failure CHF Type 2 diabetes mellitus with long-term current use of insulin Discharge Diagnoses with Status of Each Condition: Acute on chronic hypoxic respiratory failureimproving CHFEF 50, mild diastolic dysfunction Type 2 diabetes mellitus with long-term current use of insulinwill need follow- up with endocrinology, continuing current insulin regimen HPI History of Present Illness: 64-year-old female with PMH significant for ID with stents a year ago. Reports no history of lung disease, but does say that she has a as needed neb at home. She experienced a fall today. She was evaluated by EMS and noted to have oxygen saturation in the high 80s. She has had cough productive of clear sputum for several months and intermittent short of breath. In the ER, chest x-ray was performed which showed peribronchial cuffing with increased interstitial markings suggestive of mild to moderate pulmonary edema as well as a questionable 3 cm right hilar mass. ED ordered diuretics and CT chest and contacted hospitalist for observation placement for acute on chronic hypoxic respiratory failure HOSPITAL COURSE Hospital Course: Patient was admitted to the hospital and started on IV Lasix with good effect. She has no smoking history, but lives with a smoker so I empirically started her on a prednisone burst. I have attempted over the past few days to wean her down, but she still requires oxygen. Her symptoms have much improved, so I am discharging her home with home O2 to complete 1 more day of steroid and she will double her dose of diuretic until otherwise directed by her primary care provider ALLERGIES Allergies Allergy/AdvReac Type Severity Reaction Status Date / Time levofloxacin Allergy Intermediate swelling Verified 12/19/24 17:58 in mouth ibuprofen AdvReac Emesis Verified 12/19/24 17:58 rosiglitazone maleate * AdvReac Edema Verified 12/19/24 17:58 (From Avandia) MEDICATIONS Ambulatory Orders Medication Instructions Recorded Confirmed insulin glargine 100 unit/mL (3 100 unit subcut BID 04/28/17 12/20/24 mL) subcutaneous pen (Lantus Solostar U-100 Insulin) insulin lispro 100 unit/mL 60 unit subcut TIDWM 04/28/17 12/20/24 subcutaneous solution (Humalog U-100 Insulin) empagliflozin 25 mg tablet 25 mg PO DAILY 04/19/23 12/19/24 (Jardiance) rosuvastatin 20 mg tablet 20 mg PO DAILY 04/19/23 12/19/24 apixaban 2.5 mg tablet (Eliquis) 2.5 mg PO BID 12/19/24 12/19/24 aspirin 81 mg tablet,delayed 81 mg PO DAILY 12/19/24 12/19/24 release furosemide 40 mg tablet 80 mg (2 x 40 mg) PO DAILY 30 days 12/21/24 12/20/24 #0 tabs prednisone 20 mg tablet 40 mg (2 x 20 mg) PO DAILYWM 1 day 12/21/24 #2 tabs PHYSICAL EXAM AT DISCHARGE General Appearance: positive No acute distress and Alert Eyes Bilateral: positive Normal inspection ENT: positive ENT inspection nml Neck: positive Nml inspection Respiratory: positive Chest non-tender and No respiratory distress Cardiovascular: positive Regular rate & rhythm Peripheral Pulses: positive 2+ Abdomen: positive Non-tender Skin: positive Color nml and Other (Chronic discoloration due to swelling in her legs) Extremities: positive Pedal edema Neurologic/Psychiatric: positive Oriented x3 LABS 12/21/24 05:39 12/21/24 05:39 DIAGNOSTIC IMAGING Diagnostic Imaging Results: Final report reviewed Diagnostic Imaging Results Comments: Echocardiogram as described above FOLLOW UP Follow Up: With PCP, Endocrinology TIME SPENT Time Spent in Discharge (Minutes): 35 Discharge Plan Discharge Patient Disposition: Home, Self Care Condition: Stable Medically Cleared Date:: 12/21/24 Prescriptions: New prednisone 20 mg Tablet 40 mg PO DAILYWM 1 Days Qty: 2 0RF Continued insulin lispro [Humalog U-100 Insulin] 100 UNIT/ML solution 60 unit subcut TIDWM insulin glargine [Lantus Solostar U-100 Insulin] 100 UNIT/ML insulin pen 100 unit subcut BID rosuvastatin 20 MG tablet 20 mg PO DAILY Jardiance 25 MG tablet 25 mg PO DAILY aspirin 81 mg tablet,delayed release (DR/EC) 81 mg PO DAILY Eliquis 2.5 mg tablet 2.5 mg PO BID Changed furosemide 40 MG tablet 80 mg PO DAILY 30 Days Qty: 0 0RF Activity Restrictions: Activity as Tolerated Diet: Diabetic Health Concerns: You came in with difficulty breathing and were found to be fluid overloaded. There is concern for congestive heart failure, so you underwent echocardiogram which shows an EF of 50% with a mild diastolic dysfunction. Your symptoms improved after IV Lasix, but you are still on oxygen. I am sending you home with the following changes to your medication regimen: Increase dose of Lasix to 80 mg p.o. twice daily Diabetes education recommends that you do your Lantus shots 50 units at a time in 2 different spots to help with absorption Please follow-up with your primary care provider and endocrinology within 2 weeks Print Language: Japanese Patient Instructions: Heart Failure Stand Alone Forms: PCP List Follow-up Care: JAMEE HARRIS PA-C [Primary Care Provider] -
[2024-12-21 15:25] VITALS: BP 162/68; TEMP 98.1; O2SAT 92
[2024-12-21] MEDS ORDERED: INSULIN GLARGINE-YFGN 300 UNIT/3 ML PEN SUBQ SCH (21:00)
== END 2024-12-21 16:09 | disposition home or self-care (01) | DRG 189 ==
LOC: EDBD → ED 17:41 → MS2 17:41
PROVIDERS: ADMIT Nurse Practitioner Acute Care; ATTEND Nurse Practitioner Acute Care
DX: I50.9 Heart failure, unspecified; Z79.82 Long term (current) use of aspirin; Z68.43 Body mass index [BMI] 50.0-59.9, adult; E11.9 Type 2 diabetes mellitus without complications; J96.21 Acute and chronic respiratory failure with hypoxia; Z91.81 History of falling; D64.9 Anemia, unspecified; E66.9 Obesity, unspecified; E11.65 Type 2 diabetes mellitus with hyperglycemia; Z79.01 Long term (current) use of anticoagulants; I25.2 Old myocardial infarction; Z79.899 Other long term (current) drug therapy; I50.31 Acute diastolic (congestive) heart failure; N18.9 Chronic kidney disease, unspecified; E11.622 Type 2 diabetes mellitus with other skin ulcer; Z79.4 Long term (current) use of insulin

== ENCOUNTER 2025-01-24 11:34 | Inpatient (IN) ==
--- NOTE | 2025-01-24 11:44 | ED Physician Documentation ---
PD HPI ABD PAIN Stated complaint Stated Complaint: ABD SWELLING Chief complaint Chief Complaint: Resp History obtained from History obtained from: Patient History of Present Illness Timing - onset: How many months ago (1 month of worsening breathing, but notably worse the past week. ) Timing - duration: Months (1) Timing - details: Gradual onset and Still present Quality: Aching and Fullness/distended (the past week in particular. Associated with 35 lb weight gain by her scale. ) Location: All over / everywhere Improved by: No Eating Worsened by: Eating, Moving and Palpation Associated symptoms: Loss of appetite and Other (dyspnea with light activity, lying flat, and also noting weight gain. ); No Fever, Nausea, Diarrhea or Constipation Meds/Allgy Home Medications Ambulatory Orders Medication Instructions Recorded Confirmed insulin glargine 100 unit/mL (3 100 unit subcut BID 04/28/17 01/24/25 mL) subcutaneous pen (Lantus Solostar U-100 Insulin) insulin lispro 100 unit/mL 60 unit subcut TIDWM 04/28/17 01/24/25 subcutaneous solution (Humalog U-100 Insulin) empagliflozin 25 mg tablet 25 mg PO DAILY 04/19/23 01/24/25 (Jardiance) rosuvastatin 20 mg tablet 20 mg PO DAILY 04/19/23 01/24/25 apixaban 2.5 mg tablet (Eliquis) 2.5 mg PO DAILY 12/19/24 01/24/25 aspirin 81 mg tablet,delayed 81 mg PO DAILY 12/19/24 01/24/25 release prednisone 20 mg tablet 40 mg (2 x 20 mg) PO DAILYWM 1 day 12/21/24 01/24/25 #2 tabs diltiazem HCl 120 mg 120 mg PO DAILY #30 caps 01/18/25 01/24/25 capsule,extended release 24 hr (Cardizem CD) albuterol sulfate 90 mcg/actuation 2 puff inhalation Q4-6H PRN 01/24/25 01/24/25 aerosol inhaler shortness of breath or wheezing furosemide 40 mg tablet 40 mg PO DAILY 01/24/25 01/24/25 Allergies Allergies Allergy/AdvReac Type Severity Reaction Status Date / Time levofloxacin Allergy Intermediate swelling Verified 01/24/25 12:02 in mouth ibuprofen AdvReac Emesis Verified 01/24/25 12:02 rosiglitazone maleate * AdvReac Edema Verified 01/24/25 12:02 (From Mathew) [facility] Active Problems All Active Problems (Updated 01/24/25 @ 17:15 by Yessica Foy, LIBRADO) Anasarca (Acute) Anticoagulant long-term use (Acute) Atrial fibrillation with rapid ventricular response (Acute) Atrial fibrillation (Acute) Acute on chronic hypoxic respiratory failure (Acute) Respiratory failure (Acute) Congestive heart failure (Acute) Local infection of the skin and subcutaneous tissue, unspecified (Acute) Lymphedema, not elsewhere classified (Acute) Non-pressure chronic ulcer of other part of left lower leg with fat layer exposed (Acute) Type 2 diabetes mellitus with other skin ulcer (Acute) Non-pressure chronic ulcer right lower leg, limited to breakdown skin (Acute) Non-pressure chronic ulcer of right ankle with fat layer exposed (Acute) Non-pressure chronic ulcer of other part of left lower leg limited to breakdown of skin (Acute) Non-pressure chronic ulcer of other part of right lower leg with fat layer exposed (Acute) Venous insufficiency (chronic) (peripheral) (Acute) Non-pressure chronic ulcer of other part of right foot with fat layer exposed (Acute) Type 2 diabetes mellitus with foot ulcer (Acute) Medical History Medical History (Updated 01/24/25 @ 17:15 by Yessica Foy RN) HLD (hyperlipidemia) Myocardial infarction Surgical History Surgical History (Updated 01/24/25 @ 17:15 by Yessica Foy RN) H/O heart artery stent Social History Social History Smoking Status: Never smoker Do you dip or chew tobacco?: No Do you vape?: No Patient requests smoking cessation consult: Yes Living arrangement: At home Living Condition: With family Relationship: Level: Assisted Home Mobility Equipment: Wheelchair Do you feel safe in your home environment?: Yes Suffered physical, verbal, emotional, or financial abuse?: No History of Abuse: No ETOH Use: None Substance Use: denies use POLST Patient has POLST: No Exam Exam Vital Signs: Vital Signs x48h Temp Pulse Resp BP Pulse Ox O2 Flow Rate 01/24/25 12:07 152 H 28 H 117/95 H 97 2 01/24/25 11:56 35.8 C L 139 H 20 108/75 92 2 Constitutional normal general appearance, distress noted (mild) and (moderate) and average body habitus Neck/C-Spine cervical spine nontender and supple Lymph no lymphadenopathy noted Chest inspection of chest normal Respiratory clear to auscultation bilaterally Results Vitals Vitals: Vital Signs - 24 hr 01/24/25 11:56 01/24/25 12:07 01/24/25 13:24 Temperature 35.8 C L Temperature Source Temporal Artery Scan Pulse Rate 139 H 152 H 147 H Respiratory Rate 20 28 H 20 Blood Pressure 108/75 117/95 H 123/99 H O2 Saturation 92 97 92 Oxygen Delivery Method O2 Source Nasal cannula Nasal cannula Nasal cannula If not protocol: Oxygen Flow, liters/minute 2 2 2 Pain Intensity 0 01/24/25 13:27 01/24/25 13:30 01/24/25 13:35 Temperature Temperature Source Pulse Rate 137 H 127 H Respiratory Rate 22 22 Blood Pressure 136/92 H 126/77 O2 Saturation 96 94 Oxygen Delivery Method Nasal Cannula O2 Source Nasal cannula Nasal cannula If not protocol: Oxygen Flow, liters/minute 2 2 2 Pain Intensity 01/24/25 13:40 01/24/25 13:45 01/24/25 14:00 Temperature Temperature Source Pulse Rate 131 H 131 H 122 H Respiratory Rate 17 24 17 Blood Pressure 102/78 75/54 L 114/89 O2 Saturation 94 95 93 Oxygen Delivery Method O2 Source Nasal cannula Nasal cannula Nasal cannula If not protocol: Oxygen Flow, liters/minute 2 2 2 Pain Intensity 01/24/25 14:37 Temperature Temperature Source Pulse Rate 93 Respiratory Rate 20 Blood Pressure 138/90 H O2 Saturation 93 Oxygen Delivery Method O2 Source Nasal cannula If not protocol: Oxygen Flow, liters/minute 2 Pain Intensity Oxygen O2 Source Nasal cannula Labs Labs: Laboratory Tests 01/24/25 01/24/25 01/24/25 12:16 12:16 12:39 WBC 8.7 RBC 4.98 Hgb 11.6 L Hct 45.4 MCV 91.2 MCH 23.3 L MCHC 25.6 L RDW 19.9 H Plt Count 307 MPV 9.5 Neut # (Auto) 7.0 H Lymph # (Auto) 0.9 L Haines # (Auto) 0.7 Eos # (Auto) 0.1 Baso # (Auto) 0.1 Absolute Nucleated RBC 0.00 Nucleated RBC % 0.0 Manual Slide Review Indicated Platelet Estimate NORMAL (130-450,000) Platelet Morphology NORMAL APPEARANCE RBC Morph Micro Appear 1+ HYPOCHROMASIA 2+ ANISOCYTOSIS Sodium 145 Potassium 4.6 H Chloride 112 H Carbon Dioxide 28 Anion Gap 5.0 L BUN 30 H Creatinine 1.3 Estimated GFR (MDRD) 42 L Glucose 122 H Calcium 10.0 Phosphorus 3.5 Magnesium 2.6 H Total Bilirubin 0.5 AST 13 ALT 14 Alkaline Phosphatase 92 Troponin I High Sens 8.1 B-Natriuretic Peptide 411 H Total Protein 6.8 Albumin 3.6 Globulin 3.2 Albumin/Globulin Ratio 1.1 Lipase 50 TSH 3.29 Urine Color Urine Clarity Urine pH Ur Specific [place] Urine Protein Urine Glucose (UA) Urine Ketones Urine Occult Blood Urine Nitrite Urine Bilirubin Urine Urobilinogen Ur Leukocyte Esterase Urine RBC Urine WBC Ur Squamous Epith Cells Urine Bacteria Urine Culture Comments Nasal Adenovirus (PCR) NOT DETECTED Nasal B. parapertussis DNA (PCR) NOT DETECTED Nasal Coronavir 229E PCR NOT DETECTED Nasal Coronavir HKU1 PCR NOT DETECTED Nasal Coronavir NL63 PCR NOT DETECTED Nasal Coronavir OC43 PCR NOT DETECTED Nasal Enterovir/Rhinovir PCR NOT DETECTED Nasal Influenza B PCR NOT DETECTED Nasal Influenza A PCR NOT DETECTED Nasal Parainfluen 1 PCR NOT DETECTED Nasal Parainfluen 2 PCR NOT DETECTED Nasal Parainfluen 3 PCR NOT DETECTED Nasal Parainfluen 4 PCR NOT DETECTED Nasal RSV (PCR) NOT DETECTED Nasal B.pertussis DNA PCR NOT DETECTED Nasal C.pneumoniae (PCR) NOT DETECTED José Miguel Human Metapneumo PCR NOT DETECTED Nasal M.pneumoniae (PCR) NOT DETECTED Nasal SARS-CoV-2 (PCR) NOT DETECTED 01/24/25 12:50 WBC RBC Hgb Hct MCV MCH MCHC RDW Plt Count MPV Neut # (Auto) Lymph # (Auto) Haines # (Auto) Eos # (Auto) Baso # (Auto) Absolute Nucleated RBC Nucleated RBC % Manual Slide Review Platelet Estimate Platelet Morphology RBC Morph Micro Appear Sodium Potassium Chloride Carbon Dioxide Anion Gap BUN Creatinine Estimated GFR (MDRD) Glucose Calcium Phosphorus Magnesium Total Bilirubin AST ALT Alkaline Phosphatase Troponin I High Sens B-Natriuretic Peptide Total Protein Albumin Globulin Albumin/Globulin Ratio Lipase TSH Urine Color YELLOW Urine Clarity SL. CLOUDY Urine pH 5.5 Ur Specific [place] 1.025 Urine Protein 30 H Urine Glucose (UA) >=1000 H Urine Ketones NEGATIVE Urine Occult Blood SMALL H Urine Nitrite POSITIVE H Urine Bilirubin NEGATIVE Urine Urobilinogen 0.2 (NORMAL) Ur Leukocyte Esterase SMALL H Urine RBC 6-10 H Urine WBC 11-25 H Ur Squamous Epith Cells MOD Squamous H Urine Bacteria Moderate H Urine Culture Comments NOT INDICATED Nasal Adenovirus (PCR) Nasal B. parapertussis DNA (PCR) Nasal Coronavir 229E PCR Nasal Coronavir HKU1 PCR Nasal Coronavir NL63 PCR Nasal Coronavir OC43 PCR Nasal Enterovir/Rhinovir PCR Nasal Influenza B PCR Nasal Influenza A PCR Nasal Parainfluen 1 PCR Nasal Parainfluen 2 PCR Nasal Parainfluen 3 PCR Nasal Parainfluen 4 PCR Nasal RSV (PCR) Nasal B.pertussis DNA PCR Nasal C.pneumoniae (PCR) José Miguel Human Metapneumo PCR Nasal M.pneumoniae (PCR) Nasal SARS-CoV-2 (PCR) Rads (name of study) cchest xray: Relevant Findings:: Final report received and EMP independent interpretation of test (vascular congestion and enlarged heart c/w CHF. ) abd/pelvic CT: Relevant Findings:: Final report received Interpretation: EXAM: [id number] CT/ABPEW ([id number]) PROCEDURE: CT Abdomen/Pelvis W INDICATIONS: abd distension/ ? ascites CONTRAST: 100ml omni 300 TECHNIQUE: After the administration of intravenous contrast, a CT scan of the abdomen and pelvis was performed. Images were recorded and evaluated at appropriate window settings. Reformats: coronal and sagittal. For radiation dose reduction, the following was used: automated exposure control, adjustment of mA and/or kV according to patient size. COMPARISON: None. FINDINGS: Image quality: The right abdomen is partially beyond the [id number] Lower chest: Moderate right pleural effusion. Subjacent opacities are present as well as atelectasis. Trace left effusion. Cardiomegaly and coronary calcifications. Liver: No focal abnormality Gallbladder and biliary system: Small stones. Mildly distended gallbladder. No pathologic biliary dilation Pancreas: 1.5 cm pancreatic body cystic lesion. No ductal dilation Spleen: Nonenlarged Adrenals: 4.2 x 3.7 cm left adrenal nodule with macroscopic fat Kidneys: Nonobstructing left lower pole renal calculus measuring 1.2 cm. Asymmetric mild to moderate left renal atrophy. No hydronephrosis. Vessels and lymph nodes: The main portal vein is patent. No abdominal aortic aneurysm. No pathologic lymph nodes by size criteria. Bowel and peritoneum: Mild to moderate ascites. No small bowel obstruction. Body wall: Diffuse moderate anasarca. Subcutaneous edema seen particularly at the anterior pannus Pelvis: Uterus is not seen. Underdistended bladder. Bones: No aggressive appearing osseous abnormality. There are degenerative changes. IMPRESSION: Mild to moderate ascites and moderate right pleural effusion. Trace left pleural effusion. Lower lung opacities are present, at least in part atelectasis. Consider surveillance imaging to ensure resolution. Diffuse anasarca and subcutaneous edema particularly at the anterior pannus. 1.5 cm pancreatic body cystic lesion, consider nonurgent MR pancreas follow-up to further evaluate. Cholelithiasis. No biliary ductal dilation. 4.2 cm left adrenal nodule with macroscopic fat, probably myelolipoma, however consider endocrinology follow-up given its size over 4 cm, per consensus guidelines Cardiomegaly and coronary calcifications. No hydronephrosis. Nonobstructing 1.2 nonobstructing left lower pole renal calculus. Other findings above. Reviewed by: Colt Urena MD on 01/24/2025 1:39 PM PDT PD Medical Decision Making ED course Complexity details: reviewed results (CXR c/w CHF. BNP not too elevated in 400s suggesting not long standing CHF. Presume the heart failure relates to the new/persistent fast atrial fib over the past week. ), re-evaluated patient (improved symptoms with HR slowed modestly to 110-120 range. BP was initially soft and is still okay after the diltiazem. Given Lasix and pt starting to have some diuresis. Takes Lasix at home usually so likely will need larger dose.), considered differential and d/w patient (increasing edema especially of abdomen, with GARCIA and orthopnea. symptoms increased a lot over past week. No noted URI symptoms. No chest pain but feeling of pressure and dyspnea with walking or lying flat. Has noted large increased in abd girth and tightness and has a 30 lb weight gain in past weeks) Reviewed Lab Results: Pt's abd CT showing ascites but also abd wall edema. On exam no redness, sores, warmth. Presume the anasarca, so will work on diureiss. Discharge Plan Discharge Patient Disposition: 68 [facility] DC/Xfer Condition: Stable Clinical Impression: Atrial fibrillation with rapid ventricular response, Anticoagulant long-term use, Anasarca Interventions: ED Admission Assessment Last Done: 01/24/25 16:01
--- OUTSIDE RECORDS SUMMARY | 2025-01-24 11:48 | EXTERNAL MEDICAL SUMMARY RPT | Continuity of Care Document ---
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 [facility] 2024-12-19 22:28 Heart failure, unspecified [facility] 2024-12-19 22:28 Acute and chronic respiratory f ailure with hypoxia [facility] 2024-12-19 22:28 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 [facility] 2024-12-20 08:30 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 [facility] 2024-12-20 08:30 Heart failure, unspecified [facility] 2024-12-20 08:30 Acute and chronic respiratory f ailure with hypoxia [facility] 2024-12-20 08:30 retirement (current) use of insu [facility] 2024-12-20 09:03 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 [facility] 2024-12-20 09:03 Heart failure, unspecified [facility] 2024-12-20 09:03 Acute and chronic respiratory f ailure with hypoxia [facility] 2024-12-20 09:03 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 [facility] 2024-12-20 15:37 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 [facility] 2024-12-20 15:37 Heart failure, unspecified [facility] 2024-12-20 15:37 Acute and chronic respiratory f ailure with hypoxia 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 [facility] 2024-12-21 06:08 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 [facility] 2024-12-21 06:08 Heart failure, unspecified [facility] 2024-12-21 06:08 Acute and chronic respiratory f ailure with hypoxia [facility] 2024-12-21 06:08 retirement (current) use of [facility] 2024-12-21 13:53 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 [facility] 2024-12-21 13:53 Heart failure, unspecified [facility] 2024-12-21 13:53 Acute and chronic respiratory f ailure with hypoxia [facility] 2024-12-21 13:53 retirement (current) use of [facility] 2024-12-21 14:05 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 [facility] 2024-12-21 14:05 Heart failure, unspecified [facility] 2024-12-21 14:05 Acute and chronic respiratory f ailure with hypoxia [facility] 2024-12-21 14:05 retirement (current) use of [facility] 2024-12-21 15:11 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 [facility] 2024-12-21 15:11 Heart failure, unspecified [facility] 2024-12-21 15:11 Acute and chronic respiratory f ailure with hypoxia 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 [facility] 2024-12-21 16:09 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 [facility] 2024-12-21 16:09 Heart failure, unspecified [facility] 2024-12-21 16:09 Acute and chronic respiratory f ailure with hypoxia [facility] 2024-12-21 16:09 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 [facility] 2024-12-24 09:52 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 [facility] 2024-12-24 09:52 Heart failure, unspecified [facility] 2024-12-24 09:52 Acute and chronic respiratory f ailure with hypoxia [facility] 2024-12-24 09:52 Cough, unspecified [facility] 2024-12-24 09:52 Shortness of breath [facility] 2024-12-24 09:52 retirement (current) use of insu rei [facility] 2024-12-26 13:55 Cough, unspecified [facility] 2025-01-18 18:57 Unspecified atrial fibrillation [facility] 2025-01-21 07:38 Unspecified atrial fibrillation [facility] 2025-01-21 12:26 Unspecified atrial fibrillation [facility] 2025-01-21 12:26 Shortness of breath [facility] 2025-01-23 14:16 Shortness of breath [facility] Results/Labs test date facility value unit notes Result panel 1 BASOPHILS # (AUTO) 2024-12-19 20:03 [facility] 0.0 10 3/ul (missing) EOSINOPHILS # (AUTO) 2024-12-19 20:03 [facility] 0.0 10 3/ul (missing) NRBC ABSOLUTE COUNT (AUTO) 2024-12-19 20:03 [facility] 0.02 x10 3/ul (missing) NUCLEATED RED BLOOD CELLS AUTO 2024-12-19 20:03 [facility] 0.3 /100wbc (missing) LYMPHOCYTES # (AUTO) 2024-12-19 20:03 [facility] 0.5 10 3/ul (missing) BILIRUBIN,TOTAL 2024-12-19 20:03 [facility] 0.6 mg /dl As of April 2023 testing method has changed, this may include reference ranges. MONOCYTES # (AUTO) 2024-12-19 20:03 [facility] 0.8 10 3/ul (missing) ALBUMIN/GLOBULIN RATIO 2024-12-19 20:03 [facility] 1.1 (missing) (missing) CREATININE 2024-12-19 20:03 [facility] 1.1 mg/dl As of April 2023 testing method has changed, this may include reference ranges. CHLORIDE 2024-12-19 20:03 [facility] 100 mmol/l As of April 2023 testing method has changed, this may include reference ranges. ALT ALANINE AMINOTRANSFERASE 2024-12-19 20:03 [facility] 11 iu/l As of April 2023 testing method has changed, this may include reference ranges. AST ASPARTATE AMINOTRANSFERASE 2024-12-19 20:03 [facility] 12 iu/l As of April 2023 testing method has changed, this may include reference ranges. SODIUM 2024-12-19 20:03 [facility] 137 mmol/l As of April 2023 testing method has changed, this may include reference ranges. RED CELL DISTRIBUTION WIDTH 2024-12-19 20:03 [facility] 17.3 % (missing) BNP - B-NATRIURETIC PEPTIDE 2024-12-19 20:03 [facility] 214 pg/ml (missing) MEAN CORPUSCULAR HEMOGLOBIN 2024-12-19 20:03 [facility] 23.5 pg (missing) GLUCOSE 2024-12-19 20:03 [facility] 244 mg/dl As of April 2023 testing method has changed, this may include reference ranges. PLT - PLATELET COUNT 2024-12-19 20:03 [facility] 250 10 3/ul (missing) MEAN CORPUSCULAR HGB CONC 2024-12-19 20:03 [facility] 26.7 g/dl (missing) BUN - BLOOD UREA NITROGEN 2024-12-19 20:03 [facility] 27 mg/dl As of Apr testing method has changed, this may include reference ranges. GLOBULIN 2024-12-19 20:03 [facility] 3.4 g/dl (missing) ALBUMIN 2024-12-19 20:03 [facility] 3.7 g/dl As of April 2023 testing method has changed, this may include reference ranges. RED BLOOD COUNT 2024-12-19 20:03 [facility] 3.75 10 6/ul (missing) CARBON DIOXIDE - CO2 2024-12-19 20:03 [facility] 30 mmol/l As of April 2023 testing method has changed, this may include reference ranges. VBG HCO3 2024-12-19 20:03 [facility] 30.0 mmol/l (missing) VBG TOTAL CO2 2024-12-19 20:03 [facility] 31.5 mmol /l (missing) HCT - HEMATOCRIT 2024-12-19 20: [facility] 32.9 % (missing) VBG PO2 2024-12-19 20:03 [facility] 35.2 mmhg (missing) POTASSIUM 2024-12-19 20: [facility] 4.5 mmol/l As of April 2023 testing method has changed, this may include reference ranges. VBG PCO2 2024-12-19 [facility] 47.9 mmhg (missing) VBG BASE EXCESS 2024-12-19 20:03 [facility] 5.0 mm ol/l (missing) GFR - MDRD 2024-12-19 20:03 [facility] 50 (bryce castellano) Social History date description facility
[2025-01-24 12:21] LABS: BASOPHILS # (AUTO) 0.1 10^3/uL (0.0-0.1); BASOPHILS % (AUTO) 0.8 %; EOSINOPHILS # (AUTO) 0.1 10^3/uL (0.0-0.7); EOSINOPHILS % (AUTO) 1.2 %; HCT - HEMATOCRIT 45.4 % (37.0-47.0); HGB - HEMOGLOBIN 11.6 g/dL (12.0-16.0); LYMPHOCYTES # (AUTO) 0.9 10^3/uL (1.5-3.5); MEAN CORPUSCULAR HEMOGLOBIN 23.3 pg (27.0-31.0); MEAN CORPUSCULAR HGB CONC 25.6 g/dL (32.0-36.0); MEAN CORPUSCULAR VOLUME 91.2 fL (81.0-99.0); MEAN PLATELET VOLUME 9.5 fL (7.9-10.8); MONOCYTES # (AUTO) 0.7 10^3/uL (0.0-1.0); MONOCYTES % (AUTO) 7.5 %; NEUTROPHILS % (AUTO) 80.2 %; PLT - PLATELET COUNT 307 10^3/uL (130-450); RED BLOOD COUNT 4.98 10^6/uL (4.20-5.40); RED CELL DISTRIBUTION WIDTH 19.9 % (12.0-15.0); WHITE BLOOD COUNT 8.7 x10^3/uL (4.8-10.8)
[2025-01-24 12:27] LABS: SLIDE REVIEW? Indicated
[2025-01-24 12:40] LABS: ALBUMIN 3.6 g/dL (3.2-5.5); ALBUMIN/GLOBULIN RATIO 1.1 (1.0-2.2); BILIRUBIN,TOTAL 0.5 mg/dL (0.2-1.0); CREATININE 1.3 mg/dL (0.6-1.3); POTASSIUM 4.6 mmol/L (3.5-4.5); TOTAL PROTEIN 6.8 g/dL (6.4-8.9)
[2025-01-24 12:42] LABS: TROPONIN I HIGH SENSITIVITY 8.1 ng/L (2.3-14.8)
[2025-01-24] MEDS ORDERED: iohexoL-300 100 ML VIAL ONE (12:48)
[2025-01-24 12:50] LABS: PLATELET ESTIMATE, MANUAL NORMAL (130-450,000) (NORMAL); PLATELET MORPHOLOGY NORMAL APPEARANCE (NORMAL)
[2025-01-24 12:55] LABS: BILIRUBIN,URINE NEGATIVE (NEGATIVE); GLUCOSE, URINE (UA) >=1000 mg/dL (NEGATIVE); KETONES,URINE (UA) NEGATIVE (NEGATIVE); LEUKOCYTE ESTERASE, URINE SMALL (NEGATIVE); NITRITE,URINE POSITIVE (NEGATIVE); OCCULT BLOOD,URINE SMALL (NEGATIVE); PH,URINE 5.5 PH (5.0-7.5); PROTEIN,URINE 30 mg/dL (NEGATIVE); UROBILINOGEN,URINE 0.2 (NORMAL) E.U./dL (NORMAL)
[2025-01-24 12:58] LABS: MAGNESIUM 2.6 mg/dL (1.7-2.3); PHOSPHORUS 3.5 mg/dL (2.5-5.0)
[2025-01-24 13:04] LABS: BACTERIA,URINE Moderate /HPF (None Seen); CLARITY,URINE SL. CLOUDY (CLEAR); SQUAMOUS EPITHELIAL CELL,UR MOD Squamous (<= Few)
[2025-01-24 13:09] LABS: THYROID STIMULATING HORMONE 3.29 uIU/mL (0.34-5.60)
[2025-01-24] MEDS: iohexoL-300 100 ML VIAL IVP ONE (13:23)
[2025-01-24] MEDS: diltiaZEM INJ 5 MG/ML VIAL IVP STA ×2 (13:28→14:14)
[2025-01-24] MEDS: FUROSEMIDE 40 MG/4 ML VIAL IVP STA (13:29)
--- NOTE | 2025-01-24 13:29 | XRAY Report ---
PROCEDURE: XR Chest 1V INDICATIONS: Chest pain TECHNIQUE: One view of the chest was acquired. COMPARISON: 12/19/2024. FINDINGS: Surgical changes and devices: None. Lungs and pleura: There is pulmonary vascular congestion and suggestion of mild pulmonary edema. Blun ting of right costophrenic angle is seen suggestive of small to moderate right pleural effusion. Ther e is trace left pleural effusion. No pneumothorax. Mediastinum: Mediastinal contours appear normal. Heart size is enlarged. Bones and chest wall: No suspicious bony lesions. Overlying soft tissues appear unremarkable. IMPRESSION: Cardiomegaly and pulmonary vascular congestion with right greater than left bilateral pleural effusio n and suggestion of pulmonary edema consistent with CHF. No definite focal infiltrate. No pneumothora x. Reviewed by: Juarez Barboza MD on 01/24/2025 1:28 PM PDT Approved by: Juarez Barboza MD on 01/24/2025 1:28 PM PDT Station ID: [id number]
[2025-01-24 13:37] LABS: B. PARAPERTUSSIS- RESP PCR PAN NOT DETECTED; B. PERTUSSIS- RESP PCR PANEL NOT DETECTED; C. PNEUMONIAE- RESP PCR PANEL NOT DETECTED; CORONAVIRUS 229E-RESP PCR NOT DETECTED; CORONAVIRUS HKU1-RESP PCR NOT DETECTED; CORONAVIRUS NL63-RESP PCR NOT DETECTED; CORONAVIRUS OC43-RESP PCR NOT DETECTED; HUMAN METAPNEUMOVIRUS NOT DETECTED; INFLUENZA A- RESP PCR PANEL NOT DETECTED; INFLUENZA B - RESP PCR PANEL NOT DETECTED; M. PNEUMONIAE- RESP PCR PANEL NOT DETECTED; PARAINFLUENZA VIRUS 1 NOT DETECTED; PARAINFLUENZA VIRUS 2 NOT DETECTED; PARAINFLUENZA VIRUS 4 NOT DETECTED; RHINOVIRUS/ENTEROVIRUS NOT DETECTED; RSV- RESP PCR PANEL NOT DETECTED; SARS-CoV-2 -RESP PCR PANEL NOT DETECTED
--- NOTE | 2025-01-24 13:41 | CT Report ---
PROCEDURE: CT Abdomen/Pelvis W INDICATIONS: abd distension/ ? ascites CONTRAST: 100ml omni 300 TECHNIQUE: After the administration of intravenous contrast, a CT scan of the abdomen and pelvis was performed. Images were recorded and evaluated at appropriate window settings. Reformats: coronal and sagittal. F or radiation dose reduction, the following was used: automated exposure control, adjustment of mA and /or kV according to patient size. COMPARISON: None. FINDINGS: Image quality: The right abdomen is partially beyond the [id number] Lower chest: Moderate right pleural effusion. Subjacent opacities are present as well as atelectasis. Trace left effusion. Cardiomegaly and coronary calcifications. Liver: No focal abnormality Gallbladder and biliary system: Small stones. Mildly distended gallbladder. No pathologic biliary dil ation Pancreas: 1.5 cm pancreatic body cystic lesion. No ductal dilation Spleen: Nonenlarged Adrenals: 4.2 x 3.7 cm left adrenal nodule with macroscopic fat Kidneys: Nonobstructing left lower pole renal calculus measuring 1.2 cm. Asymmetric mild to moderate left renal atrophy. No hydronephrosis. Vessels and lymph nodes: The main portal vein is patent. No abdominal aortic aneurysm. No pathologic lymph nodes by size criteria. Bowel and peritoneum: Mild to moderate ascites. No small bowel obstruction. Body wall: Diffuse moderate anasarca. Subcutaneous edema seen particularly at the anterior pannus Pelvis: Uterus is not seen. Underdistended bladder. Bones: No aggressive appearing osseous abnormality. There are degenerative changes. IMPRESSION: Mild to moderate ascites and moderate right pleural effusion. Trace left pleural effusion. Lower lung opacities are present, at least in part atelectasis. Consider surveillance imaging to ensure resolut ion. Diffuse anasarca and subcutaneous edema particularly at the anterior pannus. 1.5 cm pancreatic body cystic lesion, consider nonurgent MR pancreas follow-up to further evaluate. Cholelithiasis. No biliary ductal dilation. 4.2 cm left adrenal nodule with macroscopic fat, probably myelolipoma, however consider endocrinology follow-up given its size over 4 cm, per consensus guidelines Cardiomegaly and coronary calcifications. No hydronephrosis. Nonobstructing 1.2 nonobstructing left lower pole renal calculus. Other findings above. Reviewed by: Colt Urena MD on 01/24/2025 1:39 PM PDT Approved by: Colt Urena MD on 01/24/2025 1:39 PM PDT Station ID: [id number]
--- OUTSIDE RECORDS SUMMARY | 2025-01-24 15:14 | EXTERNAL MEDICAL SUMMARY RPT | Continuity of Care Document ---
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 [facility] 2024-12-19 22:28 Heart failure, unspecified [facility] 2024-12-19 22:28 Acute and chronic respiratory f ailure with hypoxia [facility] 2024-12-19 22:28 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 [facility] 2024-12-20 08:30 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 [facility] 2024-12-20 08:30 Heart failure, unspecified [facility] 2024-12-20 08:30 Acute and chronic respiratory f ailure with hypoxia [facility] 2024-12-20 08:30 nursing home (current) use of insu [facility] 2024-12-20 09:03 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 2024-12-21 15:11 Heart failure, unspecified [facility] 2024-12-21 15:11 Acute and chronic respiratory f ailure with hypoxia 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 2024-12-24 09:52 nursing home (current) use of insu rei [facility] [place] 2024-12-26 13:55 Cough, unspecified [facility] 2025-01-18 18:57 Unspecified atrial fibrillation [facility] 2025-01-21 07:38 Unspecified atrial fibrillation [facility] 2025-01-21 12:26 Unspecified atrial fibrillation [facility] 2025-01-21 12:26 Shortness of breath [facility] 2025-01-23 14:16 Shortness of breath [facility] Results/Labs test date facility value unit notes Result panel 1 BASOPHILS # (AUTO) 2024-12-19 20:03 [facility] 0.0 10 3/ul (missing) EOSINOPHILS # (AUTO) 2024-12-19 20:03 [facility] 0.0 10 3/ul (missing) NRBC ABSOLUTE COUNT (AUTO) 2024-12-19 20:03 [facility] 0.02 x10 3/ul (missing) NUCLEATED RED BLOOD CELLS AUTO 2024-12-19 20:03 [facility] 0.3 /100wbc (missing) LYMPHOCYTES # (AUTO) 2024-12-19 20:03 [facility] 0.5 10 3/ul (missing) BILIRUBIN,TOTAL 2024-12-19 20:03 [facility] 0.6 mg /dl As of April 2023 testing method has changed, this may include reference ranges. MONOCYTES # (AUTO) 2024-12-19 20:03 [facility] 0.8 10 3/ul (missing) ALBUMIN/GLOBULIN RATIO 2024-12-19 20:03 [facility] 1.1 (missing) (missing) CREATININE 2024-12-19 20:03 [facility] 1.1 mg/dl As of April 2023 testing method has changed, this may include reference ranges. CHLORIDE 2024-12-19 20:03 [facility] 100 mmol/l As of April 2023 testing method has changed, this may include reference ranges. ALT ALANINE AMINOTRANSFERASE 2024-12-19 20:03 [facility] 11 iu/l As of April 2023 testing method has changed, this may include reference ranges. AST ASPARTATE AMINOTRANSFERASE 2024-12-19 20:03 [facility] 12 iu/l As of April 2023 testing method has changed, this may include reference ranges. SODIUM 2024-12-19 20:03 [facility] 137 mmol/l As of April 2023 testing method has changed, this may include reference ranges. RED CELL DISTRIBUTION WIDTH 2024-12-19 20:03 [facility] 17.3 % (missing) BNP - B-NATRIURETIC PEPTIDE 2024-12-19 20:03 [facility] 214 pg/ml (missing) MEAN CORPUSCULAR HEMOGLOBIN 2024-12-19 20:03 [facility] 23.5 pg (missing) GLUCOSE 2024-12-19 20:03 [facility] 244 mg/dl As of April 2023 testing method has changed, this may include reference ranges. PLT - PLATELET COUNT 2024-12-19 20:03 [facility] 250 10 3/ul (missing) MEAN CORPUSCULAR HGB CONC 2024-12-19 20:03 [facility] 26.7 g/dl (missing) BUN - BLOOD UREA NITROGEN 2024-12-19 20:03 [facility] 27 mg/dl As of Apr testing method has changed, this may include reference ranges. GLOBULIN 2024-12-19 20:03 [facility] 3.4 g/dl (missing) ALBUMIN 2024-12-19 20:03 [facility] 3.7 g/dl As of April 2023 testing method has changed, this may include reference ranges. RED BLOOD COUNT 2024-12-19 20:03 [facility] 3.75 10 6/ul (missing) CARBON DIOXIDE - CO2 2024-12-19 20:03 [facility] 30 mmol/l As of April 2023 testing method has changed, this may include reference ranges. VBG HCO3 2024-12-19 20:03 [facility] 30.0 mmol/l (missing) VBG TOTAL CO2 2024-12-19 20:03 [facility] 31.5 mmol /l (missing) HCT - HEMATOCRIT 2024-12-19 20: [facility] 32.9 % (missing) VBG PO2 2024-12-19 20:03 [facility] 35.2 mmhg (missing) POTASSIUM 2024-12-19 20: [facility] 4.5 mmol/l As of April 2023 testing method has changed, this may include reference ranges. VBG PCO2 2024-12-19 [facility] 47.9 mmhg (missing) VBG BASE EXCESS 2024-12-19 20:03 [facility] 5.0 mm ol/l (missing) GFR - MDRD 2024-12-19 20:03 [facility] 50 (bryce castellano) Social History date description facility
[2025-01-24] MEDS: diltiaZEM INJ 125 MG in DEXTROSE 5% 100 ML IV STA (15:25)
[2025-01-24] MEDS: diltiaZEM INJ 125 MG in DEXTROSE 5% 100 ML IV SCH (15:35)
--- NOTE | 2025-01-24 15:45 | HISTORY & PHYSICAL EXAMINATION ---
Chief Complaint Chief Complaint Chief Complaint: Shortness of breath History of Present Illness Admitted From Admitted From:: Home History Obtained From Records Reviewed: EMR History obtained from: Patient, patient's daughter & grandaughter at bedside Exam Limitations: None History of Present Illness HPI Comment/Other: Patient is a 64-year-old female with a history of chronic hypoxic respiratory failure on 2 L of oxygen, newly diagnosed atrial fibrillation who presented with worsening shortness of breath, as well as increasing abdominal distention. Patient states that both of these things have been worsening in the last 6 to 7 days. She is on daily Lasix therapy at home, but has missed a few doses. She states that she is about 30 pounds above her normal baseline weight. She also endorses a poor dietshe states that she has been eating lunch meats multiple times a day, and drinking more fluids then she is supposed to. Her last visit was reviewedat that time, patient states that she had no history of lung disease. She did have a nebulizer at home, which she used as needed. This time, she States that she has no history of COPD or asthma. She does not use any inhalers at home. She is exposed to significant secondhand smoke as her smokes tobacco and marijuana in the house. Of note, she was admitted from 12/19 to 12/21. At that time, echocardiogram was done, and it showed EF of 50%. Right ventricular function was normal. Mild diastolic dysfunction was noted. Valvular disease was limited due to poor windows, but no obvious valvular disease was noted at that time. The was listed we are increasing left atrial volume index, and left atrial enlargement. Patient states that she was started on Eliquis 2.5 mg twice daily by her aoc director combat operations officer, who she has not seen in a few years. She has not been told that she has a history of atrial fibrillation by her aoc director combat operations officer. There is an emergency room visit on 01/18, in which she does come in for atrial fibrillation. This was the first time she was told of this diagnosis. In the ER, when patient presented, she was tachycardic, in atrial fibrillation with RVR with heart rate as high as 152. Her blood pressure was normotensive 117/95, she is tachypneic to the mid 20s, but saturating 97% on her home 2 L. She was also afebrile. Lab work was reviewed, and it showed slight hyperkalemia of 4.6. Her creatinine appears to be around her baseline of 1.3. Her UA was contaminated. Chest x-ray showed cardiomegaly, pulmonary vascular congestion, pulmonary edema. CT shows mild to moderate ascites and moderate right pleural effusion, trace left pleural effusion, diffuse anasarca. She was admitted for atrial fibrillation with RVR to the ICU, as well as fluid overload. Meds/Allgy Home Medications Ambulatory Orders Medication Instructions Recorded Confirmed insulin glargine 100 unit/mL (3 100 unit subcut BID 04/28/17 01/24/25 mL) subcutaneous pen (Lantus Solostar U-100 Insulin) insulin lispro 100 unit/mL 60 unit subcut TIDWM 04/28/17 01/24/25 subcutaneous solution (Humalog U-100 Insulin) empagliflozin 25 mg tablet 25 mg PO DAILY 04/19/23 01/24/25 (Jardiance) rosuvastatin 20 mg tablet 20 mg PO DAILY 04/19/23 01/24/25 apixaban 2.5 mg tablet (Eliquis) 2.5 mg PO DAILY 12/19/24 01/24/25 aspirin 81 mg tablet,delayed 81 mg PO DAILY 12/19/24 01/24/25 release prednisone 20 mg tablet 40 mg (2 x 20 mg) PO DAILYWM 1 day 12/21/24 01/24/25 #2 tabs diltiazem HCl 120 mg 120 mg PO DAILY #30 caps 01/18/25 01/24/25 capsule,extended release 24 hr (Cardizem CD) albuterol sulfate 90 mcg/actuation 2 puff inhalation Q4-6H PRN 01/24/25 01/24/25 aerosol inhaler shortness of breath or wheezing furosemide 40 mg tablet 40 mg PO DAILY 01/24/25 01/24/25 Allergies Allergies Allergy/AdvReac Type Severity Reaction Status Date / Time levofloxacin Allergy Intermediate swelling Verified 01/24/25 12:02 in mouth ibuprofen AdvReac Emesis Verified 01/24/25 12:02 rosiglitazone maleate * AdvReac Edema Verified 01/24/25 12:02 (From Mathew) PFSH Active Problems All Active Problems (Updated 01/24/25 @ 16:56 by Valdo Randolph MD) Anasarca (Acute) Anticoagulant long-term use (Acute) Atrial fibrillation with rapid ventricular response (Acute) Atrial fibrillation (Acute) Acute on chronic hypoxic respiratory failure (Acute) Respiratory failure (Acute) Congestive heart failure (Acute) Local infection of the skin and subcutaneous tissue, unspecified (Acute) Lymphedema, not elsewhere classified (Acute) Non-pressure chronic ulcer of other part of left lower leg with fat layer exposed (Acute) Type 2 diabetes mellitus with other skin ulcer (Acute) Non-pressure chronic ulcer right lower leg, limited to breakdown skin (Acute) Non-pressure chronic ulcer of right ankle with fat layer exposed (Acute) Non-pressure chronic ulcer of other part of left lower leg limited to breakdown of skin (Acute) Non-pressure chronic ulcer of other part of right lower leg with fat layer exposed (Acute) Venous insufficiency (chronic) (peripheral) (Acute) Non-pressure chronic ulcer of other part of right foot with fat layer exposed (Acute) Type 2 diabetes mellitus with foot ulcer (Acute) Medical History Medical History HLD (hyperlipidemia) Myocardial infarction Surgical History Surgical History H/O heart artery stent Social History Social History Smoking Status: Never smoker Do you dip or chew tobacco?: No Do you vape?: No Living arrangement: At home Living Condition: With family Relationship: Level: Assisted Do you feel safe in your home environment?: Yes Suffered physical, verbal, emotional, or financial abuse?: No History of Abuse: No ETOH Use: None Substance Use: denies use POLST Patient has POLST: No POLST Status: DNR Review of Systems Constitutional Reports: Fatigue, Malaise, Weakness and Weight gain; Denies: Fever, Chills, Diaphoresis or Night sweats Eyes Denies: Pain, Irritation, Amaurosis, Blurry vision or Floaters Ears, nose, mouth, and throat Denies: Ear pain, Ear discharge, Hearing loss, Nasal discharge, Nasal congestion, Neck pain or Throat swelling Cardiovascular Reports: Irregular heart rate, edema, swelling of feet/ankles, lightheadedness, shortness of breath with exertion, shortness of breath when lying down and Decreased exercise tolerance; Denies: chest pain, palpitations or Syncope Respiratory Reports: Shortness of breath; Denies: Cough, Sputum production, Change in phlegm color, Wheezing or Apnea Gastrointestinal Reports: Abdominal pain, Abdominal distention and Constipation; Denies: Nausea, Vomiting, Poor appetite or Bile emesis Genitourinary Reports: Decreased urine ouput; Denies: Painful urination, Urinary frequency, Urinary urgency or Nocturia Musculoskeletal Reports: Extremity swelling; Denies: Back pain, Neck pain or Extremity pain Integumentary/Breast Denies: Rash, Itching, Dryness, Redness or Skin pain Neurological Reports: Headache and General weakness; Denies: Focal weakness, Weakness in extremities or Numbness in extremities Psychiatric Denies: Depression, Anxiety or Mood swings Endocrine Reports: Fatigue; Denies: Excessive urination, Excessive thirst or Polyphagia Hematologic/Lymphatic Denies: Anemia, Easy bruising or Petechiae Allergic/Immunologic Denies: Hives, Throat swelling, Tongue swelling, Facial swelling or Wheezing Prior Level of Functionality: Independent of ADLs. Uses wheelchair to get around. Exam Exam Vital Signs: Vital Signs x48h Temp Pulse Resp BP Pulse Ox O2 Flow Rate 01/24/25 16:26 98.6 F 20 94 2 01/24/25 15:44 122 H 18 138/79 H 93 2 01/24/25 14:37 93 20 138/90 H 93 2 01/24/25 14:00 122 H 17 114/89 93 2 01/24/25 13:45 131 H 24 75/54 L 95 2 01/24/25 13:40 131 H 17 102/78 94 2 01/24/25 13:35 127 H 22 126/77 94 2 01/24/25 13:30 137 H 22 136/92 H 96 2 01/24/25 13:27 2 01/24/25 13:24 147 H 20 123/99 H 92 2 01/24/25 12:07 152 H 28 H 117/95 H 97 2 01/24/25 11:56 96.4 F L 139 H 20 108/75 92 2 Constitutional abnormal general appearance (chronically ill) and (appears older than stated age), no apparent distress, abnormal body habitus (obese), no limitations and alert HENMT normocephalic and head/scalp atraumatic Eyes PERRL, EOMs intact bilaterally and conjunctivae normal Chest inspection of chest normal and palpation of chest normal Respiratory breath sounds equal bilaterally, normal respiratory effort, rales noted (throughout) and no use of accessory muscles Cardiovascular heart rate abnormal (tachycardic) and rhythm abnormal (irregular) Gastrointestinal abdomen abnormal to inspection (distended), abdomen soft to palpation and ascites noted (fluid wave noted) and (soft) Genitourinary no CVA tenderness and bladder normal to palpation Back/Pelvis spine normal to inspection Extremities normal to inspection, normal to palpation, no tenderness and full ROM Neurology no movement abnormality noted and no focal motor deficit noted Psychiatry mental status grossly normal, oriented x3, thought process normal, cooperative and affect normal Skin skin color normal and no rash hyperpigmentation noted bilateral lower extremities Conclusion/Plan Problem List (1) Atrial fibrillation with rapid ventricular response: Plan: Patient was diagnosed with new onset atrial fibrillation with rapid ventricular response on an emergency room visit, 01/10/2025. Started on Eliquis 2.5 twice daily. This was increased to 5 mg twice daily at this time. She also was discharged on diltiazem 120 mg daily. Echo was reviewed from 01/24/2025thrombus was not excluded, mild to moderate tricuspid regurgitation was noted, and there was increased left atrial pressure and enlargement was noted. Patient has not seen cardiology in multiple years. Continue Cardizem drip at this time. (2) Acute on chronic hypoxic respiratory failure: Plan: Last visit, patient was discharged on 2 L of oxygen. She is diffusely fluid overloaded, has diffuse anasarca, ascites, pleural effusions. Continue aggressive diuresis, with IV Lasix 40 mg twice daily. Continue low-salt diet, fluid restriction, strict ins and outs, daily weights. (3) Type 2 diabetes mellitus with foot ulcer: Plan: Patient with low glucose at this time. Will start with Lantus 30 units at night, as well as sliding scale insulin, and uptitrate as needed. Foot ulceration stable, not actively infected. Qualifiers: Diabetes mellitus terminal system operator insulin use: with terminal system operator use Qualified Code(s): E11.621 - Type 2 diabetes mellitus with foot ulcer; L97.509 - Non- pressure chronic ulcer of other part of unspecified foot with unspecified severity; Z79.4 - exterminator helper (current) use of insulin (4) HLD (hyperlipidemia): Plan: Continue statin. Qualifiers: Hyperlipidemia type: unspecified Qualified Code(s): E78.5 - Hyperlipidemia, unspecified (5) H/O heart artery stent: Plan: Continue aspirin. Lab Results Lab results reviewed: Yes 01/24/25 12:16 01/24/25 12:16 Diagnostic Imaging Results Diagnostic Imaging Results: positive Final report reviewed EKG Results EKG Interpreted Independently: Yes EKG Findings: Atrial fibrillation wtih RVR Core Measures Anticipated LOS I expect patient to be DC'd or transferred within 96 hours.: Yes Issues Hospital Issues and Management Plan: None anticipated. DVT/VTE - Prophylaxis VTE/DVT Device ordered at admit?: Yes VTE/DVT Prophylaxis med ordered at admit?: Yes
[2025-01-24] MEDS ORDERED: ONDANSETRON ODT 4 MG TABLET TL PRN (15:47)
[2025-01-24] MEDS ORDERED: SODIUM CHLORIDE FLUSH 0.9% 10 ML SYRINGE IVP PRN (15:47)
--- NOTE | 2025-01-24 16:23 | PHARMACY PROGRESS NOTE ---
Best Possible Medication History Admit Date and Time: 01/24/25 [id number] Home Medications Medication Instructions Recorded Confirmed Type insulin glargine 100 unit/mL (3 100 unit subcut BID 04/28/17 01/24/25 History mL) subcutaneous pen (Lantus Solostar U-100 Insulin) insulin lispro 100 unit/mL 60 unit subcut TIDWM 04/28/17 01/24/25 History subcutaneous solution (Humalog U-100 Insulin) empagliflozin 25 mg tablet 25 mg PO DAILY 04/19/23 01/24/25 History (Jardiance) rosuvastatin 20 mg tablet 20 mg PO DAILY 04/19/23 01/24/25 History apixaban 2.5 mg tablet (Eliquis) 2.5 mg PO DAILY 12/19/24 01/24/25 History aspirin 81 mg tablet,delayed 81 mg PO DAILY 12/19/24 01/24/25 History release prednisone 20 mg tablet 40 mg (2 x 20 mg) PO DAILYWM 1 day 12/21/24 01/24/25 Rx #2 tabs diltiazem HCl 120 mg 120 mg PO DAILY #30 caps 01/18/25 01/24/25 Rx capsule,extended release 24 hr (Cardizem CD) albuterol sulfate 90 mcg/actuation 2 puff inhalation Q4-6H PRN 01/24/25 01/24/25 History aerosol inhaler shortness of breath or wheezing furosemide 40 mg tablet 40 mg PO DAILY 01/24/25 01/24/25 History Processed by: Pharmacy (Medication Reconciliation completed by Medical Billing And Coding SpecialistKam) Medications reviewed in ED?: Yes Medication History completed: Yes Patient Interview: Completed Secondary Source(s): Insurance records (UNABLE TO CONFIRM NEARLY ALL MEDICATIONS DUE TO FILLING WITH [facility]) [facility] Statement: As the person ultimately responsible for medication therapy, providers are able to order a medication from an existing home medication list in [facility] via the "Reconcile Routine" prior to Confirmation of that medication by pit crew support worker. Such practice is discouraged except when the physician, in their clinical judgment, deems that a medical need exists for a medication without regard to previous use.
--- NOTE | 2025-01-24 16:51 | ECHO Report ---
Version: 1 Study ID: [id number] [address] [place] [address] Adult Echocardiogram Report Name: GABRIELLE PULLIAM Study Date: 01/24/2025, 3: 02 PM BP : 142 / 109 mmHg Patient Location: ICU^2301^[id number] HR: 134 bpm : 1960 (MM/DD/YYYY) Gender: Female He ight: 66 in Age: 64 Years Weight: 365.7 lb Reason For Study: new onset atrial fib; CHF/edema History: New on set atrial fibrillation with RVR not rate controlled Procedure: A focused 2D and Doppler study was performed. This study was focused secondary to patient body habitu s. The underlying rhythm was atrial fibrillation. Interpretation Summary The left ventricle is not well visualized. Mild to moderate tricuspid regurgitation present. Left Ventricle: The left ventricle is not well visualized. A repeat limited study with echocardiographic (microbubble ) enhancement agent may be indicated when rate controlled. Thrombus can not be excluded. Difficult to assess LV function due to RVR and beat to beat variability. Regional wall motion abnormalities cannot be excluded due to limited visualizati on. Right Ventricle: Dilated RV. The right ventricular systolic function is mildly decreased. Aortic Valve: The aortic valve is not well visualized. No aortic regurgitation is present. Mitral Valve: The mitral valve is not well visualized. Tricuspid Valve: The tricuspid valve leaflets are mildly thickened. There is no tricuspid stenosis. Mild to moderate t ricuspid regurgitation present. Pulmonic Valve: The pulmonic valve is normal in structure and function. Trace pulmonic valvular regurgitation is pres ent. Left Atrium: Left atrial enlargement. Right Atrium: Right atrium not well visualized. The inferior vena cava is not well visualized. The central venous p ressure cannot be estimated on this study. Atrial Septum: The interatrial septum is not well seen. Interatrial shunt cannot be excluded. Aorta: The ascending aorta is not well seen. The sinuses of Valsalva are not well visualized. Pulmonary Artery: Unable to evaluate RA pressure from IVC dynamics; however the pulmonary artery systolic pressure is l ikely 35 mmHg plus central venous pressure. Pericardium/Pleural Space: There is no pericardial effusion. CPT Codes: [id number]: Color Doppler flow. [id number]: Spectral Doppler, limited. [id number]: Transt horacic Echo without spectral or color Doppler, Limited. Doppler Measurements & Calculations Ao V1 max P.7 mmHg Ao V1 max mariana: 147.5 cm/sec LV V1 max: 86.2 cm/sec LV V1 max P.0 mmHg TR max P.4 mmHg TR max mariana: 297.6 cm/sec MMode/2D Measurements & Calculations Heart Rate: 134.0 BPM Height (metric): 167.6 cm Systolic Pressure: 142.0 mmHg Other Measurements & Calculations Ao V1 max P.7 mmHg Ao V1 max mariana: 147.5 cm/sec BMI: 59.0 kilograms/m² BSA: 2.6 m² BSA([facility]): 2.9 m² Diastolic Pressure: 109.0 mmHg Heart Rate: 134.0 BPM Height (metric): 167.6 cm LV V1 max: 86.2 cm/sec Systolic Pressure: 142.0 mmHg TR max P.4 mmHg TR max mariana: 297.6 cm/sec TV max P.4 mmHg Weight (metric): 165.9 kg Cezar Sheridan MD 01/24/2025, 4: 51 PM Ordering Physician: Jeb York Referring Physician: DOC, EMS Performed By: Ayesha Mac RDCS
[2025-01-24] MEDS ORDERED: INSULIN LISPRO 300 UNIT/3 ML PEN SUBQ SCH (17:00)
[2025-01-24] MEDS: INSULIN LISPRO 300 UNIT/3 ML PEN SUBQ SCH (17:28)
[2025-01-24] MEDS: SODIUM CHLORIDE FLUSH 0.9% 10 ML SYRINGE IVP SCH (17:28)
[2025-01-24] MEDS: METOPROLOL 5 MG/5 ML VIAL IVP ONE (18:38)
[2025-01-24] MEDS ORDERED: INSULIN GLARGINE-YFGN 300 UNIT/3 ML PEN SUBQ SCH (21:00)
[2025-01-24] MEDS: ATORVASTATIN 40 MG TABLET PO SCH (21:23)
[2025-01-24] MEDS: APIXABAN 5 MG TABLET PO SCH (21:23)
[2025-01-24] MEDS: FUROSEMIDE 40 MG/4 ML VIAL IVP SCH (21:24)
[2025-01-24] MEDS: INSULIN GLARGINE-YFGN 300 UNIT/3 ML PEN SUBQ SCH (21:30)
[2025-01-24] MEDS: METOPROLOL 5 MG/5 ML VIAL IVP PRN (23:57)
[2025-01-25 05:12] LABS: BASOPHILS # (AUTO) 0.1 10^3/uL (0.0-0.1); BASOPHILS % (AUTO) 0.7 %; EOSINOPHILS # (AUTO) 0.1 10^3/uL (0.0-0.7); EOSINOPHILS % (AUTO) 1.6 %; HCT - HEMATOCRIT 43.7 % (37.0-47.0); HGB - HEMOGLOBIN 11.2 g/dL (12.0-16.0); LYMPHOCYTES # (AUTO) 0.9 10^3/uL (1.5-3.5); LYMPHOCYTES % (AUTO) 10.1 %; MEAN CORPUSCULAR HEMOGLOBIN 23.5 pg (27.0-31.0); MEAN CORPUSCULAR HGB CONC 25.6 g/dL (32.0-36.0); MEAN CORPUSCULAR VOLUME 91.6 fL (81.0-99.0); MEAN PLATELET VOLUME 9.8 fL (7.9-10.8); MONOCYTES % (AUTO) 11.3 %; NEUTROPHILS # (AUTO) 6.5 10^3/uL (1.5-6.6); PLT - PLATELET COUNT 305 10^3/uL (130-450); RED BLOOD COUNT 4.77 10^6/uL (4.20-5.40); WHITE BLOOD COUNT 8.6 x10^3/uL (4.8-10.8)
[2025-01-25 05:22] LABS: MAGNESIUM 2.5 mg/dL (1.7-2.3)
[2025-01-25 05:28] LABS: CALCIUM 10.1 mg/dL (8.5-10.3); CREATININE 1.4 mg/dL (0.6-1.3); POTASSIUM 4.2 mmol/L (3.5-4.5)
[2025-01-25 05:48] LABS: CALCIUM, IONIZED 1.27 mmol/L (1.09-1.30); VBG PH 7.406 (7.31-7.41)
[2025-01-25] MEDS: diltiaZEM CD 180 MG CAPSULE PO SCH (08:20)
[2025-01-25] MEDS: ASPIRIN EC 81 MG TABLET PO SCH (08:21)
--- NOTE | 2025-01-25 09:57 | PROVIDER PROGRESS NOTE ---
Subjective Subjective Subjective: Patient states that she feels better today. She feels like her abdominal distention is improving. She denies any fevers or chills. She has no shortness of breath, and remains on 2 L. She is still has not having any chest pain or palpitations. Current Medications Current Medications Current Medications: Current Medications Generic Name Dose Route Start Last Admin Trade Name Freq PRN Reason Stop Dose Admin Acetaminophen 650 mg 01/24/25 15:47 Acetaminophen 325 Mg Tablet PO Q4HR PRN Pain 1 to 4, or Fever Apixaban 5 mg 01/24/25 21:00 01/25/25 08:21 Apixaban 5 Mg Tablet PO 5 mg BID TREY Administration Aspirin 81 mg 01/25/25 09:00 01/25/25 08:21 Aspirin Ec 81 Mg Tablet PO 81 mg DAILY TREY Administration Atorvastatin Calcium 40 mg 01/24/25 21:00 01/24/25 21:23 Atorvastatin 40 Mg Tablet PO 40 mg QPM TREY Administration Diltiazem HCl 180 mg 01/25/25 09:00 01/25/25 08:20 Diltiazem Cd 180 Mg Capsule PO 180 mg DAILY TREY Administration Furosemide 40 mg 01/24/25 21:00 01/24/25 21:24 Furosemide 40 Mg/4 Ml Vial IVP 40 mg BID TREY Administration Diltiazem HCl 125 mg/ Dextrose 125 mls @ 5 mls/hr 01/24/25 15:47 01/25/25 05:12 IV 15 mg/hr .Q25H TREY 15 mls/hr Administration Protocol 5 MG/HR Insulin Glargine-yfgn 30 unit 01/24/25 21:00 01/24/25 21:30 Insulin Glargine-Yfgn 300 Unit/3 Ml Pen SUBQ 30 unit QPM TREY Administration Insulin Human Lispro 1 - 9 unit 01/24/25 17:00 01/25/25 08:21 Insulin Lispro 300 Unit/3 Ml Pen SUBQ 1 unit 0800,1200,1700,2100 TREY Administration Protocol Metoprolol Tartrate 5 mg 01/24/25 19:52 01/25/25 08:22 Metoprolol 5 Mg/5 Ml Vial IVP 5 mg Q6H PRN Administration Tachycardia Ondansetron HCl 4 mg 01/24/25 15:47 Ondansetron Odt 4 Mg Tablet TL Q6HR PRN Nausea / Vomiting Empagliflozin [ 1 each 01/25/25 09:00 Jardiance] 25 Mg PO Tablet DAILY TREY Sodium Chloride 10 ml 01/24/25 17:00 01/24/25 23:57 Sodium Chloride Flush 0.9% 10 Ml Syringe IVP 10 ml 0100,0900,1700 TREY Administration Sodium Chloride 10 ml 01/24/25 15:47 Sodium Chloride Flush 0.9% 10 Ml Syringe IVP PRN PRN NEEDED PER PROVIDER ORDERS Objective Vital Signs/Intake & Output Reviewed Vital Signs: Yes Vital Signs: Vital Signs x48h Temp Pulse Pulse Resp BP BP Pulse Ox 01/25/25 09:00 98.1 F 115 H 15 92/59 L 90 L 01/25/25 08:22 134 H 116/74 01/25/25 08:00 97.7 F 107 H 21 97/55 L 91 L 01/25/25 07:00 106 H 22 115/81 93 01/25/25 06:00 97.7 F 117 H 16 117/81 92 01/25/25 05:00 97.7 F 115 H 23 108/61 93 01/25/25 04:00 97.7 F 108 H 14 100/78 93 01/25/25 03:00 98.1 F 100 14 95/57 L 92 01/25/25 02:00 98.2 F 103 H 15 92/63 92 O2 Flow Rate 01/25/25 09:00 2 01/25/25 08:22 01/25/25 08:00 2 01/25/25 07:00 2 01/25/25 06:00 2 01/25/25 05:00 2 01/25/25 04:00 2 01/25/25 03:00 2 01/25/25 02:00 2 Intake & Output: Intake & Output 01/22/25 01/23/25 01/24/25 01/25/25 23:59 23:59 23:59 23:59 Intake Total 188 / 188 903 / 903 Output Total 2760 / 2760 875 / 875 Balance -2572 / -2572 Weight (kg) 163 kg 160.5 kg Objective General Appearance: positive No acute distress and Alert; negative Anxious Eyes Bilateral: positive Normal inspection, PERRL and EOMI ENT: positive ENT inspection nml, Pharynx nml and No signs of dehydration Neck: positive Nml inspection, Thyroid nml and No JVD Respiratory: positive Chest non-tender, No respiratory distress and Breath sounds nml Cardiovascular: positive Irregularly irregular and Tachycardia Abdomen: positive Non-tender; negative No distention (Distension noted), Tenderness, Guarding, Rebound or Mass Back: positive Nml inspection; negative CVA tenderness (R) or CVA tenderness (L) Skin: positive Color nml, No rash, Warm and Dry Extremities: positive Non-tender, Full ROM, Nml appearance and No pedal edema (minimal, trace, improved) Neurologic/Psychiatric: positive Oriented x3, Motor nml and Mood/affect nml Lab Results 01/25/25 04:57 01/25/25 04:57 Other Labs: Lab Results x24hrs 01/25/25 01/25/25 01/24/25 Range/Units 08:00 04:57 20:49 WBC 8.6 (4.8-10.8) x10^3/uL RBC 4.77 (4.20-5.40) 10^6/uL Hgb 11.2 L (12.0-16.0) g/dL Hct 43.7 (37.0-47.0) % MCV 91.6 (81.0-99.0) fL MCH 23.5 L (27.0-31.0) pg MCHC 25.6 L (32.0-36.0) g/dL RDW 20.0 H (12.0-15.0) % Plt Count 305 (130-450) 10^3/uL MPV 9.8 (7.9-10.8) fL Neut # (Auto) 6.5 (1.5-6.6) 10^3/uL Lymph # (Auto) 0.9 L (1.5-3.5) 10^3/uL Kleberg # (Auto) 1.0 (0.0-1.0) 10^3/uL Eos # (Auto) 0.1 (0.0-0.7) 10^3/uL Baso # (Auto) 0.1 (0.0-0.1) 10^3/uL Absolute Nucleated RBC 0.00 x10^3/uL Nucleated RBC % 0.0 /100WBC Manual Slide Review Platelet Estimate (NORMAL) Platelet Morphology (NORMAL) RBC Morph Micro Appear (NORMAL) VBG pH 7.406 (7.31-7.41) Ionized Calcium 1.27 (1.09-1.30) mmol/L Sodium 145 (135-145) mmol/L Potassium 4.2 (3.5-4.5) mmol/L Chloride 110 (101-111) mmol/L Carbon Dioxide 29 (21-32) mmol/L Anion Gap 6.0 (6-13) BUN 30 H (6-20) mg/dL Creatinine 1.4 H (0.6-1.3) mg/dL Estimated GFR (MDRD) 38 L (>89) Glucose 159 H (74-104) mg/dL POC Whole Bld Glucose 142 195 (70-100) mg/dL Calcium 10.1 (8.5-10.3) mg/dL Phosphorus 3.9 (2.5-5.0) mg/dL Magnesium 2.5 H (1.7-2.3) mg/dL Total Bilirubin (0.2-1.0) mg/dL AST (10-42) IU/L ALT (10-60) IU/L Alkaline Phosphatase (42-121) IU/L Troponin I High Sens (2.3-14.8) ng/L B-Natriuretic Peptide (5-100) pg/mL Total Protein (6.4-8.9) g/dL Albumin (3.2-5.5) g/dL Globulin (2.1-4.2) g/dL Albumin/Globulin Ratio (1.0-2.2) Lipase (11-82) U/L TSH (0.34-5.60) uIU/mL Urine Color Urine Clarity (CLEAR) Urine pH (5.0-7.5) PH Ur Specific [place] (1.002-1.030) Urine Protein (NEGATIVE) mg/dL Urine Glucose (UA) (NEGATIVE) mg/dL Urine Ketones (NEGATIVE) mg/dL Urine Occult Blood (NEGATIVE) Urine Nitrite (NEGATIVE) Urine Bilirubin (NEGATIVE) Urine Urobilinogen (NORMAL) E.U./dL Ur Leukocyte Esterase (NEGATIVE) Urine RBC (0-5) /HPF Urine WBC (0-5) /HPF Ur Squamous Epith Cells (<= Few) Urine Bacteria (None Seen) /HPF Urine Culture Comments Nasal Adenovirus (PCR) Nasal B. parapertussis DNA (PCR) Nasal Coronavir 229E PCR Nasal Coronavir HKU1 PCR Nasal Coronavir NL63 PCR Nasal Coronavir OC43 PCR Nasal Enterovir/Rhinovir PCR Nasal Influenza B PCR Nasal Influenza A PCR Nasal Parainfluen 1 PCR Nasal Parainfluen 2 PCR Nasal Parainfluen 3 PCR Nasal Parainfluen 4 PCR Nasal RSV (PCR) Nasal Screen MRSA (PCR) (NEGATIVE) Nasal B.pertussis DNA PCR Nasal C.pneumoniae (PCR) José Miguel Human Metapneumo PCR Nasal M.pneumoniae (PCR) Nasal SARS-CoV-2 (PCR) 01/24/25 01/24/25 01/24/25 Range/Units 16:57 16:25 12:50 WBC (4.8-10.8) x10^3/uL RBC (4.20-5.40) 10^6/uL Hgb (12.0-16.0) g/dL Hct (37.0-47.0) % MCV (81.0-99.0) fL MCH (27.0-31.0) pg MCHC (32.0-36.0) g/dL RDW (12.0-15.0) % Plt Count (130-450) 10^3/uL MPV (7.9-10.8) fL Neut # (Auto) (1.5-6.6) 10^3/uL Lymph # (Auto) (1.5-3.5) 10^3/uL Kleberg # (Auto) (0.0-1.0) 10^3/uL Eos # (Auto) (0.0-0.7) 10^3/uL Baso # (Auto) (0.0-0.1) 10^3/uL Absolute Nucleated RBC x10^3/uL Nucleated RBC % /100WBC Manual Slide Review Platelet Estimate (NORMAL) Platelet Morphology (NORMAL) RBC Morph Micro Appear (NORMAL) VBG pH (7.31-7.41) Ionized Calcium (1.09-1.30) mmol/L Sodium (135-145) mmol/L Potassium (3.5-4.5) mmol/L Chloride (101-111) mmol/L Carbon Dioxide (21-32) mmol/L Anion Gap (6-13) BUN (6-20) mg/dL Creatinine (0.6-1.3) mg/dL Estimated GFR (MDRD) (>89) Glucose (74-104) mg/dL POC Whole Bld Glucose 114 (70-100) mg/dL Calcium (8.5-10.3) mg/dL Phosphorus (2.5-5.0) mg/dL Magnesium (1.7-2.3) mg/dL Total Bilirubin (0.2-1.0) mg/dL AST (10-42) IU/L ALT (10-60) IU/L Alkaline Phosphatase (42-121) IU/L Troponin I High Sens (2.3-14.8) ng/L B-Natriuretic Peptide (5-100) pg/mL Total Protein (6.4-8.9) g/dL Albumin (3.2-5.5) g/dL Globulin (2.1-4.2) g/dL Albumin/Globulin Ratio (1.0-2.2) Lipase (11-82) U/L TSH (0.34-5.60) uIU/mL Urine Color YELLOW Urine Clarity SL. CLOUDY (CLEAR) Urine pH 5.5 (5.0-7.5) PH Ur Specific [place] 1.025 (1.002-1.030) Urine Protein 30 H (NEGATIVE) mg/dL Urine Glucose (UA) >=1000 H (NEGATIVE) mg/dL Urine Ketones NEGATIVE (NEGATIVE) mg/dL Urine Occult Blood SMALL H (NEGATIVE) Urine Nitrite POSITIVE H (NEGATIVE) Urine Bilirubin NEGATIVE (NEGATIVE) Urine Urobilinogen 0.2 (NORMAL) (NORMAL) E.U./dL Ur Leukocyte Esterase SMALL H (NEGATIVE) Urine RBC 6-10 H (0-5) /HPF Urine WBC 11-25 H (0-5) /HPF Ur Squamous Epith Cells MOD Squamous H (<= Few) Urine Bacteria Moderate H (None Seen) /HPF Urine Culture Comments NOT INDICATED Nasal Adenovirus (PCR) Nasal B. parapertussis DNA (PCR) Nasal Coronavir 229E PCR Nasal Coronavir HKU1 PCR Nasal Coronavir NL63 PCR Nasal Coronavir OC43 PCR Nasal Enterovir/Rhinovir PCR Nasal Influenza B PCR Nasal Influenza A PCR Nasal Parainfluen 1 PCR Nasal Parainfluen 2 PCR Nasal Parainfluen 3 PCR Nasal Parainfluen 4 PCR Nasal RSV (PCR) Nasal Screen MRSA (PCR) NEGATIVE (NEGATIVE) Nasal B.pertussis DNA PCR Nasal C.pneumoniae (PCR) José Miguel Human Metapneumo PCR Nasal M.pneumoniae (PCR) Nasal SARS-CoV-2 (PCR) 01/24/25 01/24/25 01/24/25 Range/Units 12:39 12:16 12:16 WBC 8.7 (4.8-10.8) x10^3/uL RBC 4.98 (4.20-5.40) 10^6/uL Hgb 11.6 L (12.0-16.0) g/dL Hct 45.4 (37.0-47.0) % MCV 91.2 (81.0-99.0) fL MCH 23.3 L (27.0-31.0) pg MCHC 25.6 L (32.0-36.0) g/dL RDW 19.9 H (12.0-15.0) % Plt Count 307 (130-450) 10^3/uL MPV 9.5 (7.9-10.8) fL Neut # (Auto) 7.0 H (1.5-6.6) 10^3/uL Lymph # (Auto) 0.9 L (1.5-3.5) 10^3/uL Kleberg # (Auto) 0.7 (0.0-1.0) 10^3/uL Eos # (Auto) 0.1 (0.0-0.7) 10^3/uL Baso # (Auto) 0.1 (0.0-0.1) 10^3/uL Absolute Nucleated RBC 0.00 x10^3/uL Nucleated RBC % 0.0 /100WBC Manual Slide Review Indicated Platelet Estimate NORMAL (130-450,000) (NORMAL) Platelet Morphology NORMAL APPEARANCE (NORMAL) RBC Morph Micro Appear 2+ ANISOCYTOSIS 1+ HYPOCHROMASIA (NORMAL) VBG pH (7.31-7.41) Ionized Calcium (1.09-1.30) mmol/L Sodium 145 (135-145) mmol/L Potassium 4.6 H (3.5-4.5) mmol/L Chloride 112 H (101-111) mmol/L Carbon Dioxide 28 (21-32) mmol/L Anion Gap 5.0 L (6-13) BUN 30 H (6-20) mg/dL Creatinine 1.3 (0.6-1.3) mg/dL Estimated GFR (MDRD) 42 L (>89) Glucose 122 H (74-104) mg/dL POC Whole Bld Glucose (70-100) mg/dL Calcium 10.0 (8.5-10.3) mg/dL Phosphorus 3.5 (2.5-5.0) mg/dL Magnesium 2.6 H (1.7-2.3) mg/dL Total Bilirubin 0.5 (0.2-1.0) mg/dL AST 13 (10-42) IU/L ALT 14 (10-60) IU/L Alkaline Phosphatase 92 (42-121) IU/L Troponin I High Sens 8.1 (2.3-14.8) ng/L B-Natriuretic Peptide 411 H (5-100) pg/mL Total Protein 6.8 (6.4-8.9) g/dL Albumin 3.6 (3.2-5.5) g/dL Globulin 3.2 (2.1-4.2) g/dL Albumin/Globulin Ratio 1.1 (1.0-2.2) Lipase 50 (11-82) U/L TSH 3.29 (0.34-5.60) uIU/mL Urine Color Urine Clarity (CLEAR) Urine pH (5.0-7.5) PH Ur Specific [place] (1.002-1.030) Urine Protein (NEGATIVE) mg/dL Urine Glucose (UA) (NEGATIVE) mg/dL Urine Ketones (NEGATIVE) mg/dL Urine Occult Blood (NEGATIVE) Urine Nitrite (NEGATIVE) Urine Bilirubin (NEGATIVE) Urine Urobilinogen (NORMAL) E.U./dL Ur Leukocyte Esterase (NEGATIVE) Urine RBC (0-5) /HPF Urine WBC (0-5) /HPF Ur Squamous Epith Cells (<= Few) Urine Bacteria (None Seen) /HPF Urine Culture Comments Nasal Adenovirus (PCR) NOT DETECTED Nasal B. parapertussis DNA (PCR) NOT DETECTED Nasal Coronavir 229E PCR NOT DETECTED Nasal Coronavir HKU1 PCR NOT DETECTED Nasal Coronavir NL63 PCR NOT DETECTED Nasal Coronavir OC43 PCR NOT DETECTED Nasal Enterovir/Rhinovir PCR NOT DETECTED Nasal Influenza B PCR NOT DETECTED Nasal Influenza A PCR NOT DETECTED Nasal Parainfluen 1 PCR NOT DETECTED Nasal Parainfluen 2 PCR NOT DETECTED Nasal Parainfluen 3 PCR NOT DETECTED Nasal Parainfluen 4 PCR NOT DETECTED Nasal RSV (PCR) NOT DETECTED Nasal Screen MRSA (PCR) (NEGATIVE) Nasal B.pertussis DNA PCR NOT DETECTED Nasal C.pneumoniae (PCR) NOT DETECTED José Miguel Human Metapneumo PCR NOT DETECTED Nasal M.pneumoniae (PCR) NOT DETECTED Nasal SARS-CoV-2 (PCR) NOT DETECTED Diagnostic Imaging Diagnostic Imaging Results: positive Final report reviewed Assessment/Plan Problem List (1) Atrial fibrillation with rapid ventricular response: Impression: Patient was diagnosed with new onset atrial fibrillation with rapid ventricular response on an emergency room visit, 01/10/2025. Started on Eliquis 2.5 twice daily. This was increased to 5 mg twice daily at this time. She also was discharged on diltiazem 120 mg daily. Patient currently maximized on diltiazem drip 15/h. I have also restarted her oral diltiazem. Will load her with digoxin, 250 mg for 4 doses every 6 hours. Continue Eliquis. Echo was reviewed from 01/24/2025thrombus was not excluded, mild to moderate tricuspid regurgitation was noted, and there was increased left atrial pressure and enlargement was noted. Patient has not seen cardiology in multiple years. (2) Acute on chronic hypoxic respiratory failure: Impression: Last visit, patient was discharged on 2 L of oxygen. She is diffusely fluid overloaded, has diffuse anasarca, ascites, pleural effusions. Continue aggressive diuresis, with IV Lasix 40 mg twice daily. Continue low-salt diet, fluid restriction, strict ins and outs, daily weights. (3) Type 2 diabetes mellitus with foot ulcer: Impression: Patient with low glucose at this time. Will start with Lantus 30 units at night, as well as sliding scale insulin, and uptitrate as needed. Foot ulceration stable, not actively infected. 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 Qualifiers: Hyperlipidemia type: unspecified Qualified Code(s): E78.5 - Hyperlipidemia, unspecified (5) H/O heart artery stent: Impression: Continue aspirin.
[2025-01-25] MEDS: DIGOXIN 500 MCG/2 ML AMP IVP SCH (12:51)
[2025-01-25] MEDS: INSULIN LISPRO 300 UNIT/3 ML PEN SUBQ SCH (20:22)
[2025-01-26 03:47] LABS: HCT - HEMATOCRIT 42.2 % (37.0-47.0); HGB - HEMOGLOBIN 11.2 g/dL (12.0-16.0); MEAN CORPUSCULAR HEMOGLOBIN 23.9 pg (27.0-31.0); MEAN CORPUSCULAR HGB CONC 26.5 g/dL (32.0-36.0); MEAN PLATELET VOLUME 9.8 fL (7.9-10.8); RED BLOOD COUNT 4.69 10^6/uL (4.20-5.40); RED CELL DISTRIBUTION WIDTH 19.9 % (12.0-15.0)
[2025-01-26 03:52] LABS: CALCIUM, IONIZED 1.28 mmol/L (1.09-1.30); VBG PH 7.424 (7.31-7.41)
[2025-01-26 04:21] LABS: CALCIUM 10.1 mg/dL (8.5-10.3); CREATININE 1.5 mg/dL (0.6-1.3); MAGNESIUM 2.6 mg/dL (1.7-2.3); POTASSIUM 5.2 mmol/L (3.5-4.5)
[2025-01-26] MEDS: ACETAMINOPHEN 325 MG TABLET PO PRN (06:16)
[2025-01-26] MEDS: DIGOXIN 125 MCG TABLET PO SCH (08:11)
[2025-01-26] MEDS: diltiaZEM CD 240 MG CAPSULE PO SCH (08:11)
[2025-01-26] MEDS: FUROSEMIDE 40 MG/4 ML VIAL IVP SCH (08:12)
[2025-01-26 09:13] LABS: DIGOXIN 1.5 ng/mL
--- NOTE | 2025-01-26 12:08 | PROVIDER PROGRESS NOTE ---
Subjective Subjective Subjective: Patient states that she feels better today. She feels like her abdominal distention is improving. She denies any fevers or chills. She has no shortness of breath, and remains on 2 L. She is still has not having any chest pain or palpitations. Per nursing, with even slight movements like eating, her heart rate increases. Current Medications Current Medications Current Medications: Current Medications Generic Name Dose Route Start Last Admin Trade Name Freq PRN Reason Stop Dose Admin Acetaminophen 650 mg 01/24/25 15:47 01/26/25 06:16 Acetaminophen 325 Mg Tablet PO 650 mg Q4HR PRN Administration Pain 1 to 4, or Fever Apixaban 5 mg 01/24/25 21:00 01/26/25 08:12 Apixaban 5 Mg Tablet PO 5 mg BID TREY Administration Aspirin 81 mg 01/25/25 09:00 01/26/25 08:12 Aspirin Ec 81 Mg Tablet PO 81 mg DAILY TREY Administration Atorvastatin Calcium 40 mg 01/24/25 21:00 01/25/25 20:22 Atorvastatin 40 Mg Tablet PO 40 mg QPM TREY Administration Digoxin 250 mcg 01/26/25 09:00 01/26/25 08:11 Digoxin 125 Mcg Tablet PO 250 mcg DAILY TREY Administration Diltiazem HCl 240 mg 01/26/25 09:00 01/26/25 08:11 Diltiazem Cd 240 Mg Capsule PO 240 mg DAILY TREY Administration Furosemide 40 mg 01/26/25 09:00 01/26/25 08:12 Furosemide 40 Mg/4 Ml Vial IVP 40 mg DAILY TREY Administration Diltiazem HCl 125 mg/ Dextrose 125 mls @ 5 mls/hr 01/24/25 15:47 01/26/25 06:00 IV 0 mg/hr .Q25H TREY 0 mls/hr Titration Protocol 5 MG/HR Insulin Glargine-yfgn 30 unit 01/24/25 21:00 01/25/25 20:22 Insulin Glargine-Yfgn 300 Unit/3 Ml Pen SUBQ 30 unit QPM TREY Administration Insulin Human Lispro 3 - 11 unit 01/25/25 21:00 01/26/25 08:10 Insulin Lispro 300 Unit/3 Ml Pen SUBQ 7 unit 0800,1200,1700,2100 TREY Administration Protocol Metoprolol Tartrate 5 mg 01/24/25 19:52 01/26/25 06:41 Metoprolol 5 Mg/5 Ml Vial IVP 5 mg Q6H PRN Administration Tachycardia Ondansetron HCl 4 mg 01/24/25 15:47 Ondansetron Odt 4 Mg Tablet TL Q6HR PRN Nausea / Vomiting Empagliflozin [ 1 each 01/25/25 09:00 01/26/25 08:12 Jardiance] 25 Mg PO Not Given Tablet DAILY TREY Sodium Chloride 10 ml 01/24/25 17:00 01/26/25 08:12 Sodium Chloride Flush 0.9% 10 Ml Syringe IVP 10 ml 0100,0900,1700 TREY Administration Sodium Chloride 10 ml 01/24/25 15:47 Sodium Chloride Flush 0.9% 10 Ml Syringe IVP PRN PRN NEEDED PER PROVIDER ORDERS Objective Vital Signs/Intake & Output Reviewed Vital Signs: Yes Vital Signs: Vital Signs x48h Temp Pulse Pulse Resp BP BP Pulse Ox 01/26/25 12:00 97.7 F 116 H 28 H 118/75 92 01/26/25 11:00 97.7 F 109 H 15 97/77 92 01/26/25 10:00 97.7 F 107 H 13 132/66 H 94 01/26/25 09:00 97.9 F 108 H 17 112/67 93 01/26/25 08:00 97.5 F L 141 H 20 118/76 93 01/26/25 07:12 01/26/25 07:11 106 H 118/76 01/26/25 07:00 94 14 99/64 92 01/26/25 06:41 122 H 120/60 01/26/25 06:16 101 H 01/26/25 06:00 100 20 114/73 92 01/26/25 05:00 98 20 131/65 H 93 O2 Flow Rate 01/26/25 12:00 2 01/26/25 11:00 2 01/26/25 10:00 2 01/26/25 09:00 2 01/26/25 08:00 2 01/26/25 07:12 2 01/26/25 07:11 01/26/25 07:00 2 01/26/25 06:41 01/26/25 06:16 01/26/25 06:00 2 01/26/25 05:00 2 Intake & Output: Intake & Output 01/23/25 01/24/25 01/25/25 01/26/25 23:59 23:59 23:59 23:59 Intake Total 188 / 188 1687 / 1687 363 / 363 Output Total 2760 / 2760 3810 / 3810 2545 / 2545 Balance -2572 / -2572 -2123 / -2123 -2182 / -2182 Weight (kg) 163 kg 160.5 kg 157.5 kg Objective General Appearance: positive No acute distress and Alert; negative Anxious Eyes Bilateral: positive Normal inspection, PERRL and EOMI ENT: positive ENT inspection nml, Pharynx nml and No signs of dehydration Neck: positive Nml inspection, Thyroid nml and No JVD Respiratory: positive Chest non-tender, No respiratory distress and Breath sounds nml Cardiovascular: positive Irregularly irregular and Tachycardia Abdomen: positive Non-tender; negative No distention (Distension noted), Tenderness, Guarding, Rebound or Mass Back: positive Nml inspection; negative CVA tenderness (R) or CVA tenderness (L) Skin: positive Color nml, No rash, Warm, Dry and Other (erythema and hyperpigmentation of bilateral lower extremities; some blistering with clear drainage noted on posterior of LLL) Extremities: positive Non-tender, Full ROM, Nml appearance and Pedal edema (2+ b/l edema past knees) Neurologic/Psychiatric: positive Oriented x3, Motor nml and Mood/affect nml Lab Results 01/26/25 03:40 01/26/25 03:40 Other Labs: Lab Results x24hrs 01/26/25 01/26/25 01/26/25 Range/Units 11:42 07:45 03:40 WBC 9.0 (4.8-10.8) x10^3/uL RBC 4.69 (4.20-5.40) 10^6/uL Hgb 11.2 L (12.0-16.0) g/dL Hct 42.2 (37.0-47.0) % MCV 90.0 (81.0-99.0) fL MCH 23.9 L (27.0-31.0) pg MCHC 26.5 L (32.0-36.0) g/dL RDW 19.9 H (12.0-15.0) % Plt Count 294 (130-450) 10^3/uL MPV 9.8 (7.9-10.8) fL VBG pH 7.424 H (7.31-7.41) Ionized Calcium 1.28 (1.09-1.30) mmol/L Sodium 142 (135-145) mmol/L Potassium 5.2 H (3.5-4.5) mmol/L Chloride 106 (101-111) mmol/L Carbon Dioxide 31 (21-32) mmol/L Anion Gap 5.0 L (6-13) BUN 35 H (6-20) mg/dL Creatinine 1.5 H (0.6-1.3) mg/dL Estimated GFR (MDRD) 35 L (>89) Glucose 225 H (74-104) mg/dL POC Whole Bld Glucose 326 253 (70-100) mg/dL Calcium 10.1 (8.5-10.3) mg/dL Phosphorus 4.0 (2.5-5.0) mg/dL Magnesium 2.6 H (1.7-2.3) mg/dL Last Dose Date UNK Last Dose Time UNK Digoxin 1.5 ng/mL 01/25/25 01/25/25 Range/Units 20:10 16:41 WBC (4.8-10.8) x10^3/uL RBC (4.20-5.40) 10^6/uL Hgb (12.0-16.0) g/dL Hct (37.0-47.0) % MCV (81.0-99.0) fL MCH (27.0-31.0) pg MCHC (32.0-36.0) g/dL RDW (12.0-15.0) % Plt Count (130-450) 10^3/uL MPV (7.9-10.8) fL VBG pH (7.31-7.41) Ionized Calcium (1.09-1.30) mmol/L Sodium (135-145) mmol/L Potassium (3.5-4.5) mmol/L Chloride (101-111) mmol/L Carbon Dioxide (21-32) mmol/L Anion Gap (6-13) BUN (6-20) mg/dL Creatinine (0.6-1.3) mg/dL Estimated GFR (MDRD) (>89) Glucose (74-104) mg/dL POC Whole Bld Glucose 287 262 (70-100) mg/dL Calcium (8.5-10.3) mg/dL Phosphorus (2.5-5.0) mg/dL Magnesium (1.7-2.3) mg/dL Last Dose Date Last Dose Time Digoxin ng/mL Diagnostic Imaging Diagnostic Imaging Results: positive Final report reviewed Assessment/Plan Problem List (1) Atrial fibrillation with rapid ventricular response: Impression: Patient was diagnosed with new onset atrial fibrillation with rapid ventricular response on an emergency room visit, 01/10/2025. Started on Eliquis 2.5 twice daily. This was increased to 5 mg twice daily at this time. She also was discharged on diltiazem 120 mg daily. Patient has been off the diltiazem drip since this morning, but her rate is ranging from 100-115. I have increased her diltiazem to 240 milligrams daily. I have also started her on metoprolol tartrate 25 mg twice daily. We loaded her with digoxin yesterday, checked her levels this morning and they are therapeutic. Will continue her on digoxin 250 mg daily. ECHO was reviewed from 01/24/2025thrombus was not excluded, mild to moderate tricuspid regurgitation was noted, and there was increased left atrial pressure and enlargement was noted. Patient has not seen cardiology in multiple years. (2) Acute on chronic hypoxic respiratory failure: Impression: Last visit, patient was discharged on 2 L of oxygen. She is diffusely fluid overloaded, has diffuse anasarca, ascites, pleural effusions. Use diuresis IV Lasix 40 mg twice daily for the past couple days. Her creatinine has worsened. I will decrease the Lasix to once daily. She still is diffusely volume overloaded. Continue low-salt diet, fluid restriction, strict ins and outs, daily weights. (3) Acute kidney injury: Impression: Her creatinine worsened overnight, likely secondary to diuretic use. She still is diffusely volume overloaded. I have decreased her Lasix to 40 mg once a day. Will repeat BMP later today. (4) Type 2 diabetes mellitus with foot ulcer: Impression: Patient was supposedly taking 100 mg twice daily of Lantus at home. When she arrived, her sugars were in the 120s. We started a lower dose of Lantus, 30 units at night. Her sugars have increased while she has been here. I am going to increase her Lantus to 35 units nightly, scheduled mealtime insulin, 5 units 3 times daily, and continue sliding scale insulin. Foot ulceration stable, not actively infected. 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 Qualifiers: Hyperlipidemia type: unspecified Qualified Code(s): E78.5 - Hyperlipidemia, unspecified (6) H/O heart artery stent: Impression: Continue aspirin.
[2025-01-26] MEDS: METOPROLOL TARTRATE 25 MG TABLET PO SCH (12:23)
[2025-01-26 16:27] LABS: CALCIUM 10.1 mg/dL (8.5-10.3); CREATININE 1.5 mg/dL (0.6-1.3); POTASSIUM 4.3 mmol/L (3.5-4.5)
[2025-01-26] MEDS: INSULIN LISPRO 300 UNIT/3 ML PEN SUBQ SCH (17:12)
[2025-01-26] MEDS: INSULIN GLARGINE-YFGN 300 UNIT/3 ML PEN SUBQ SCH (21:05)
[2025-01-27 04:50] LABS: HCT - HEMATOCRIT 40.1 % (37.0-47.0); HGB - HEMOGLOBIN 10.9 g/dL (12.0-16.0); MEAN CORPUSCULAR HEMOGLOBIN 24.1 pg (27.0-31.0); MEAN CORPUSCULAR HGB CONC 27.2 g/dL (32.0-36.0); MEAN CORPUSCULAR VOLUME 88.5 fL (81.0-99.0); MEAN PLATELET VOLUME 9.6 fL (7.9-10.8); RED BLOOD COUNT 4.53 10^6/uL (4.20-5.40); RED CELL DISTRIBUTION WIDTH 19.8 % (12.0-15.0); WHITE BLOOD COUNT 8.6 x10^3/uL (4.8-10.8)
[2025-01-27 04:56] LABS: CALCIUM, IONIZED 1.25 mmol/L (1.09-1.30); VBG PH 7.477 (7.31-7.41)
[2025-01-27 05:06] LABS: CALCIUM 9.9 mg/dL (8.5-10.3); CREATININE 1.4 mg/dL (0.6-1.3); MAGNESIUM 2.4 mg/dL (1.7-2.3)
[2025-01-27] MEDS: polyethylene glycoL 3350 17 GM PACKET PO SCH (08:22)
[2025-01-27] MEDS: METOPROLOL TARTRATE 50 MG TABLET PO SCH (08:22)
[2025-01-27] MEDS: NON FORMULARY MED PO SCH (08:22)
--- NOTE | 2025-01-27 10:19 | PROVIDER PROGRESS NOTE ---
Subjective Subjective Subjective: Patient states that she feels better today. She feels like her abdominal distention is improving. She denies any fevers or chills. She has no shortness of breath, and remains on 2 L. She is still has not having any chest pain or palpitations. Per nursing, with even slight movements like eating, her heart rate increases. Her heart rate is slowly improving but does increase to the 130s-140s. Current Medications Current Medications Current Medications: Current Medications Generic Name Dose Route Start Last Admin Trade Name Freq PRN Reason Stop Dose Admin Acetaminophen 650 mg 01/24/25 15:47 01/26/25 06:16 Acetaminophen 325 Mg Tablet PO 650 mg Q4HR PRN Administration Pain 1 to 4, or Fever Apixaban 5 mg 01/24/25 21:00 01/27/25 08:21 Apixaban 5 Mg Tablet PO 5 mg BID TREY Administration Aspirin 81 mg 01/25/25 09:00 01/27/25 08:21 Aspirin Ec 81 Mg Tablet PO 81 mg DAILY TREY Administration Atorvastatin Calcium 40 mg 01/24/25 21:00 01/26/25 21:01 Atorvastatin 40 Mg Tablet PO 40 mg QPM TREY Administration Digoxin 250 mcg 01/26/25 09:00 01/27/25 08:21 Digoxin 125 Mcg Tablet PO 250 mcg DAILY TREY Administration Diltiazem HCl 240 mg 01/26/25 09:00 01/27/25 08:21 Diltiazem Cd 240 Mg Capsule PO 240 mg DAILY TREY Administration Furosemide 40 mg 01/26/25 09:00 01/27/25 08:22 Furosemide 40 Mg/4 Ml Vial IVP 40 mg DAILY TREY Administration Diltiazem HCl 125 mg/ Dextrose 125 mls @ 5 mls/hr 01/24/25 15:47 01/26/25 06:00 IV 0 mg/hr .Q25H TREY 0 mls/hr Titration Protocol 5 MG/HR Insulin Glargine-yfgn 35 unit 01/26/25 21:00 01/26/25 21:05 Insulin Glargine-Yfgn 300 Unit/3 Ml Pen SUBQ 35 unit QPM TREY Administration Insulin Human Lispro 3 - 11 unit 01/25/25 21:00 01/27/25 08:20 Insulin Lispro 300 Unit/3 Ml Pen SUBQ 7 unit 0800,1200,1700,2100 TREY Administration Protocol Insulin Human Lispro 5 unit 01/26/25 17:00 01/27/25 08:21 Insulin Lispro 300 Unit/3 Ml Pen SUBQ 5 unit TIDWM TREY Administration Metoprolol Tartrate 5 mg 01/24/25 19:52 01/27/25 05:17 Metoprolol 5 Mg/5 Ml Vial IVP 5 mg Q6H PRN Administration Tachycardia Metoprolol Tartrate 50 mg 01/27/25 09:00 01/27/25 08:22 Metoprolol Tartrate 50 Mg Tablet PO 50 mg BID TREY Administration Non-Formulary Medication 1 each 01/27/25 09:00 01/27/25 08:22 Non Formulary Med PO Not Given DAILY TREY Ondansetron HCl 4 mg 01/24/25 15:47 Ondansetron Odt 4 Mg Tablet TL Q6HR PRN Nausea / Vomiting Polyethylene Glycol 17 gm 01/27/25 09:00 01/27/25 08:22 Polyethylene Glycol 3350 17 Gm Packet PO Not Given DAILY TREY Sodium Chloride 10 ml 01/24/25 17:00 01/27/25 08:22 Sodium Chloride Flush 0.9% 10 Ml Syringe IVP 10 ml 0100,0900,1700 TREY Administration Sodium Chloride 10 ml 01/24/25 15:47 Sodium Chloride Flush 0.9% 10 Ml Syringe IVP PRN PRN NEEDED PER PROVIDER ORDERS Objective Vital Signs/Intake & Output Reviewed Vital Signs: Yes Vital Signs: Vital Signs x48h Temp Pulse Pulse Resp BP BP Pulse Ox 01/27/25 10:00 101 H 18 110/80 92 01/27/25 09:00 115 H 25 H 105/65 91 L 01/27/25 08:22 106 H 100/72 01/27/25 08:00 98.2 F 112 H 23 100/72 99 01/27/25 07:11 111 H 01/27/25 07:00 106 H 24 106/67 93 01/27/25 06:00 98.2 F 101 H 24 104/47 L 01/27/25 05:17 122 H 106/53 L 01/27/25 05:00 97.8 F 113 H 15 106/53 L 01/27/25 04:00 98.2 F 107 H 21 109/77 01/27/25 03:00 98.6 F 122 H 21 116/61 O2 Flow Rate 01/27/25 10:00 2 01/27/25 09:00 2 01/27/25 08:22 01/27/25 08:00 2 01/27/25 07:11 01/27/25 07:00 2 01/27/25 06:00 2 01/27/25 05:17 01/27/25 05:00 2 01/27/25 04:00 2 01/27/25 03:00 2 Intake & Output: Intake & Output 01/24/25 01/25/25 01/26/25 01/27/25 23:59 23:59 23:59 23:59 Intake Total 188 / 188 1687 / 1687 1095 / 1095 240 / 240 Output Total 2760 / 2760 3810 / 3810 4545 / 4545 1660 / 1660 Balance -2572 / -2572 -2123 / -2123 -3450 / -3450 -1420 / -1420 Weight (kg) 163 kg 160.5 kg 157.5 kg 157 kg Objective General Appearance: positive No acute distress and Alert; negative Anxious Eyes Bilateral: positive Normal inspection, PERRL and EOMI ENT: positive ENT inspection nml, Pharynx nml and No signs of dehydration Neck: positive Nml inspection, Thyroid nml and No JVD Respiratory: positive Chest non-tender, No respiratory distress and Breath sounds nml Cardiovascular: positive Irregularly irregular and Tachycardia Abdomen: positive Non-tender; negative No distention (Distension noted), Tenderness, Guarding, Rebound or Mass Back: positive Nml inspection; negative CVA tenderness (R) or CVA tenderness (L) Skin: positive Color nml, No rash, Warm, Dry and Other (erythema and hyperpigmentation of bilateral lower extremities; some blistering with clear drainage noted on posterior of LLL) Extremities: positive Non-tender, Full ROM, Nml appearance and Pedal edema (2+ b/l edema past knees) Neurologic/Psychiatric: positive Oriented x3, Motor nml and Mood/affect nml Lab Results 01/27/25 04:40 01/27/25 04:40 Other Labs: Lab Results x24hrs 01/27/25 01/27/25 01/26/25 Range/Units 08:05 04:40 21:00 WBC 8.6 (4.8-10.8) x10^3/uL RBC 4.53 (4.20-5.40) 10^6/uL Hgb 10.9 L (12.0-16.0) g/dL Hct 40.1 (37.0-47.0) % MCV 88.5 (81.0-99.0) fL MCH 24.1 L (27.0-31.0) pg MCHC 27.2 L (32.0-36.0) g/dL RDW 19.8 H (12.0-15.0) % Plt Count 278 (130-450) 10^3/uL MPV 9.6 (7.9-10.8) fL VBG pH 7.477 H (7.31-7.41) Ionized Calcium 1.25 (1.09-1.30) mmol/L Sodium 144 (135-145) mmol/L Potassium 4.0 (3.5-4.5) mmol/L Chloride 105 (101-111) mmol/L Carbon Dioxide 33 H (21-32) mmol/L Anion Gap 6.0 (6-13) BUN 34 H (6-20) mg/dL Creatinine 1.4 H (0.6-1.3) mg/dL Estimated GFR (MDRD) 38 L (>89) Glucose 270 H (74-104) mg/dL POC Whole Bld Glucose 234 314 (70-100) mg/dL Calcium 9.9 (8.5-10.3) mg/dL Phosphorus 3.7 (2.5-5.0) mg/dL Magnesium 2.4 H (1.7-2.3) mg/dL 01/26/25 01/26/25 01/26/25 Range/Units 16:54 16:04 11:42 WBC (4.8-10.8) x10^3/uL RBC (4.20-5.40) 10^6/uL Hgb (12.0-16.0) g/dL Hct (37.0-47.0) % MCV (81.0-99.0) fL MCH (27.0-31.0) pg MCHC (32.0-36.0) g/dL RDW (12.0-15.0) % Plt Count (130-450) 10^3/uL MPV (7.9-10.8) fL VBG pH (7.31-7.41) Ionized Calcium (1.09-1.30) mmol/L Sodium 142 (135-145) mmol/L Potassium 4.3 (3.5-4.5) mmol/L Chloride 104 (101-111) mmol/L Carbon Dioxide 32 (21-32) mmol/L Anion Gap 6.0 (6-13) BUN 36 H (6-20) mg/dL Creatinine 1.5 H (0.6-1.3) mg/dL Estimated GFR (MDRD) 35 L (>89) Glucose 337 H (74-104) mg/dL POC Whole Bld Glucose 298 326 (70-100) mg/dL Calcium 10.1 (8.5-10.3) mg/dL Phosphorus (2.5-5.0) mg/dL Magnesium (1.7-2.3) mg/dL Diagnostic Imaging Diagnostic Imaging Results: positive Final report reviewed Assessment/Plan Problem List (1) Atrial fibrillation with rapid ventricular response: Impression: Patient was diagnosed with new onset atrial fibrillation with rapid ventricular response on an emergency room visit, 01/10/2025. Started on Eliquis 2.5 twice daily. This was increased to 5 mg twice daily at this time. She also was discharged on diltiazem 120 mg daily. I have increased her diltiazem to 240 milligrams daily. I started her on metoprolol tartrate 25 mg twice daily yesterday, ad have increased this to 50mg BID today. We loaded her with digoxin, checked her levels this morning and they are therapeutic. Will continue her on digoxin 250 mg daily. ECHO was reviewed from 01/24/2025 mild to moderate tricuspid regurgitation was noted, and there was increased left atrial pressure and enlargement was noted. Patient has not seen cardiology in multiple years. She already has an appointment set up with them for February. (2) Acute on chronic hypoxic respiratory failure: Impression: Last visit, patient was discharged on 2 L of oxygen. She is diffusely fluid overloaded, has diffuse anasarca, ascites, pleural effusions. Used diuresis IV Lasix 40 mg twice daily for the past couple days. Her creatinine worsened and I decreased the Lasix to once daily, with improvement of her creatinine. She still is diffusely volume overloaded. Continue low-salt diet, fluid restriction, strict ins and outs, daily weights. Patient has consistently put out 2 to 4 L of urine daily. Her weight has decreased from 165.9 kg on admission to 157 kg today. (3) Acute kidney injury: Impression: Her creatinine worsened and them improved with decreased dose of her diuretic. She still is diffusely volume overloaded. (4) Type 2 diabetes mellitus with foot ulcer: Impression: Patient was supposedly taking 100 mg twice daily of Lantus at home. When she arrived, her sugars were in the 120s. We started a lower dose of Lantus, 30 units at night. Her sugars have increased while she has been here. I am going to increase her Lantus further today to 40 units nightly, scheduled mealtime insulin increased to 8 units 3 times daily, and continue sliding scale insulin. Foot ulceration stable, not actively infected. Qualifiers: Diabetes mellitus supervisor intermediates insulin use: with supervisor intermediates use Qualified Code(s): E11.621 - Type 2 diabetes mellitus with foot ulcer; L97.509 - Non- pressure chronic ulcer of other part of unspecified foot with unspecified severity; Z79.4 - intermediate project manager (current) use of insulin (5) HLD (hyperlipidemia): Impression: Continue statin. Qualifiers: Hyperlipidemia type: unspecified Qualified Code(s): E78.5 - Hyperlipidemia, unspecified (6) H/O heart artery stent: Impression: Continue aspirin.
[2025-01-27] MEDS: INSULIN LISPRO 300 UNIT/3 ML PEN SUBQ SCH (17:03)
[2025-01-27] MEDS: INSULIN GLARGINE-YFGN 300 UNIT/3 ML PEN SUBQ SCH (21:07)
[2025-01-28 04:36] LABS: HCT - HEMATOCRIT 39.8 % (37.0-47.0); HGB - HEMOGLOBIN 10.5 g/dL (12.0-16.0); MEAN CORPUSCULAR HEMOGLOBIN 23.5 pg (27.0-31.0); MEAN CORPUSCULAR HGB CONC 26.4 g/dL (32.0-36.0); MEAN CORPUSCULAR VOLUME 89.2 fL (81.0-99.0); MEAN PLATELET VOLUME 9.6 fL (7.9-10.8); RED BLOOD COUNT 4.46 10^6/uL (4.20-5.40); RED CELL DISTRIBUTION WIDTH 19.2 % (12.0-15.0); WHITE BLOOD COUNT 8.3 x10^3/uL (4.8-10.8)
[2025-01-28 04:53] LABS: CALCIUM 9.9 mg/dL (8.5-10.3); CREATININE 1.3 mg/dL (0.6-1.3); MAGNESIUM 2.4 mg/dL (1.7-2.3); POTASSIUM 4.1 mmol/L (3.5-4.5)
--- NOTE | 2025-01-28 09:59 | PROVIDER PROGRESS NOTE ---
Subjective Subjective Subjective: Patient states that she feels better today. She feels like her abdominal distention is improving. She denies any fevers or chills. She has no shortness of breath, and remains on 2 L. She is still has not having any chest pain or palpitations. Per nursing, with even slight movements like eating, her heart rate increases. Her heart rate is slowly improving but does increase to the 130s-140s with even slight activity. She is looking forward to working with PT/OT today. Current Medications Current Medications Current Medications: Current Medications Generic Name Dose Route Start Last Admin Trade Name Freq PRN Reason Stop Dose Admin Acetaminophen 650 mg 01/24/25 15:47 01/26/25 06:16 Acetaminophen 325 Mg Tablet PO 650 mg Q4HR PRN Administration Pain 1 to 4, or Fever Apixaban 5 mg 01/24/25 21:00 01/28/25 08:09 Apixaban 5 Mg Tablet PO 5 mg BID TREY Administration Aspirin 81 mg 01/25/25 09:00 01/28/25 08:09 Aspirin Ec 81 Mg Tablet PO 81 mg DAILY TREY Administration Atorvastatin Calcium 40 mg 01/24/25 21:00 01/27/25 21:04 Atorvastatin 40 Mg Tablet PO 40 mg QPM TREY Administration Digoxin 250 mcg 01/26/25 09:00 01/28/25 08:09 Digoxin 125 Mcg Tablet PO 250 mcg DAILY TREY Administration Diltiazem HCl 240 mg 01/26/25 09:00 01/28/25 08:09 Diltiazem Cd 240 Mg Capsule PO 240 mg DAILY TREY Administration Furosemide 40 mg 01/26/25 09:00 01/28/25 08:09 Furosemide 40 Mg/4 Ml Vial IVP 40 mg DAILY TREY Administration Insulin Glargine-yfgn 40 unit 01/27/25 21:00 01/27/25 21:07 Insulin Glargine-Yfgn 300 Unit/3 Ml Pen SUBQ 40 unit QPM TREY Administration Insulin Human Lispro 3 - 11 unit 01/25/25 21:00 01/28/25 08:08 Insulin Lispro 300 Unit/3 Ml Pen SUBQ 5 unit 0800,1200,1700,2100 TREY Administration Protocol Insulin Human Lispro 8 unit 01/27/25 17:00 01/28/25 08:08 Insulin Lispro 300 Unit/3 Ml Pen SUBQ 8 unit TIDWM TREY Administration Metoprolol Tartrate 5 mg 01/24/25 19:52 01/27/25 05:17 Metoprolol 5 Mg/5 Ml Vial IVP 5 mg Q6H PRN Administration Tachycardia Metoprolol Tartrate 50 mg 01/27/25 09:00 01/28/25 08:09 Metoprolol Tartrate 50 Mg Tablet PO 50 mg BID TREY Administration Non-Formulary Medication 1 each 01/27/25 09:00 01/28/25 08:09 Non Formulary Med PO Not Given DAILY TREY Ondansetron HCl 4 mg 01/24/25 15:47 Ondansetron Odt 4 Mg Tablet TL Q6HR PRN Nausea / Vomiting Polyethylene Glycol 17 gm 01/27/25 09:00 01/28/25 08:09 Polyethylene Glycol 3350 17 Gm Packet PO 17 gm DAILY TREY Administration Sodium Chloride 10 ml 01/24/25 17:00 01/28/25 08:10 Sodium Chloride Flush 0.9% 10 Ml Syringe IVP 10 ml 0100,0900,1700 TREY Administration Sodium Chloride 10 ml 01/24/25 15:47 Sodium Chloride Flush 0.9% 10 Ml Syringe IVP PRN PRN NEEDED PER PROVIDER ORDERS Objective Vital Signs/Intake & Output Reviewed Vital Signs: Yes Vital Signs: Vital Signs x48h Temp Pulse Pulse Resp BP BP BP 01/28/25 09:00 96 20 106/64 01/28/25 08:09 132 H 111/74 01/28/25 08:00 98.2 F 130 H 19 111/74 01/28/25 07:00 115 H 18 102/55 L 01/28/25 06:00 104 H 20 108/69 01/28/25 05:00 108 H 20 112/73 01/28/25 04:00 98.6 F 105 H 20 124/84 01/28/25 03:00 99 18 105/60 01/28/25 02:00 95 23 107/53 L Pulse Ox O2 Flow Rate 01/28/25 09:00 92 2 01/28/25 08:09 01/28/25 08:00 91 L 2 01/28/25 07:00 90 L 2 01/28/25 06:00 93 2 01/28/25 05:00 94 2 01/28/25 04:00 93 2 01/28/25 03:00 95 2 01/28/25 02:00 94 2 Intake & Output: Intake & Output 01/25/25 01/26/25 01/27/25 01/28/25 23:59 23:59 23:59 23:59 Intake Total 1687 / 1687 1095 / 1095 716 / 716 490 / 490 Output Total 3810 / 3810 4545 / 4545 3900 / 3900 1225 / 1225 Balance -2123 / -2123 -3450 / -3450 -3184 / -3184 -735 / -735 Weight (kg) 160.5 kg 157.5 kg 157 kg 154.5 kg Objective General Appearance: positive No acute distress and Alert; negative Anxious Eyes Bilateral: positive Normal inspection, PERRL and EOMI ENT: positive ENT inspection nml, Pharynx nml and No signs of dehydration Neck: positive Nml inspection, Thyroid nml and No JVD Respiratory: positive Chest non-tender, No respiratory distress and Breath sounds nml Cardiovascular: positive Irregularly irregular and Tachycardia Abdomen: positive Non-tender; negative No distention (Distension noted), Tenderness, Guarding, Rebound or Mass Back: positive Nml inspection; negative CVA tenderness (R) or CVA tenderness (L) Skin: positive Color nml, No rash, Warm, Dry and Other (erythema and hyperpigmentation of bilateral lower extremities; some blistering with clear drainage noted on posterior of LLL) Extremities: positive Non-tender, Full ROM, Nml appearance and Pedal edema (2+ b/l edema past knees) Neurologic/Psychiatric: positive Oriented x3, Motor nml and Mood/affect nml Lab Results 01/28/25 04:18 01/28/25 04:18 Other Labs: Lab Results x24hrs 01/28/25 01/28/25 01/27/25 Range/Units 07:45 04:18 21:00 WBC 8.3 (4.8-10.8) x10^3/uL RBC 4.46 (4.20-5.40) 10^6/uL Hgb 10.5 L (12.0-16.0) g/dL Hct 39.8 (37.0-47.0) % MCV 89.2 (81.0-99.0) fL MCH 23.5 L (27.0-31.0) pg MCHC 26.4 L (32.0-36.0) g/dL RDW 19.2 H (12.0-15.0) % Plt Count 268 (130-450) 10^3/uL MPV 9.6 (7.9-10.8) fL Sodium 145 (135-145) mmol/L Potassium 4.1 (3.5-4.5) mmol/L Chloride 105 (101-111) mmol/L Carbon Dioxide 33 H (21-32) mmol/L Anion Gap 7.0 (6-13) BUN 31 H (6-20) mg/dL Creatinine 1.3 (0.6-1.3) mg/dL Estimated GFR (MDRD) 42 L (>89) Glucose 232 H (74-104) mg/dL POC Whole Bld Glucose 222 268 (70-100) mg/dL Calcium 9.9 (8.5-10.3) mg/dL Magnesium 2.4 H (1.7-2.3) mg/dL 01/27/25 Range/Units 11:14 WBC (4.8-10.8) x10^3/uL RBC (4.20-5.40) 10^6/uL Hgb (12.0-16.0) g/dL Hct (37.0-47.0) % MCV (81.0-99.0) fL MCH (27.0-31.0) pg MCHC (32.0-36.0) g/dL RDW (12.0-15.0) % Plt Count (130-450) 10^3/uL MPV (7.9-10.8) fL Sodium (135-145) mmol/L Potassium (3.5-4.5) mmol/L Chloride (101-111) mmol/L Carbon Dioxide (21-32) mmol/L Anion Gap (6-13) BUN (6-20) mg/dL Creatinine (0.6-1.3) mg/dL Estimated GFR (MDRD) (>89) Glucose (74-104) mg/dL POC Whole Bld Glucose 335 (70-100) mg/dL Calcium (8.5-10.3) mg/dL Magnesium (1.7-2.3) mg/dL Diagnostic Imaging Diagnostic Imaging Results: positive Final report reviewed Assessment/Plan Problem List (1) Atrial fibrillation with rapid ventricular response: Impression: Patient was diagnosed with new onset atrial fibrillation with rapid ventricular response on an emergency room visit, 01/10/2025. Started on Eliquis 2.5 twice daily. This was increased to 5 mg twice daily at this time. She also was discharged on diltiazem 120 mg daily. I have increased her diltiazem to 240 milligrams daily. I started her on metoprolol tartrate 25 mg twice daily yesterday, ad increased this to 50mg BID yesterday; will keep her at this dose at this time as her blood pressures have been decreasing. We loaded her with digoxin, checked her levels this morning and they are therapeutic. Will continue her on digoxin 250 mg daily. ECHO was reviewed from 01/24/2025 mild to moderate tricuspid regurgitation was noted, and there was increased left atrial pressure and enlargement was noted. Patient has not seen cardiology in multiple years. She already has an appointment set up with them for February. (2) Acute on chronic hypoxic respiratory failure: Impression: Last visit, patient was discharged on 2 L of oxygen. She is diffusely fluid overloaded, has diffuse anasarca, ascites, pleural effusions. Used diuresis IV Lasix 40 mg twice daily for the past couple days. Her creatinine worsened and I decreased the Lasix to once daily, with improvement of her creatinine. She still is diffusely volume overloaded. Continue low-salt diet, fluid restriction, strict ins and outs, daily weights. Patient has consistently put out 2 to 4 L of urine daily. Her weight has decreased from 165.9 kg on admission to 154.5 kg today. (3) Acute kidney injury: Impression: Her creatinine worsened and them improved with decreased dose of her diuretic. She still is diffusely volume overloaded. (4) Type 2 diabetes mellitus with foot ulcer: Impression: Patient was supposedly taking 100 mg twice daily of Lantus at home. When she arrived, her sugars were in the 120s. We started a lower dose of Lantus, 30 units at night. Her sugars have increased while she has been here. I am going to increase her Lantus further today to 50 units nightly, scheduled mealtime insulin increased to 10 units 3 times daily, and continue sliding scale insulin. Left calf ulceration stable, not actively infected. Qualifiers: Diabetes mellitus terminal superintendent insulin use: with half-way use Qualified Code(s): E11.621 - Type 2 diabetes mellitus with foot ulcer; L97.509 - Non- pressure chronic ulcer of other part of unspecified foot with unspecified severity; Z79.4 - senior care (current) use of insulin (5) HLD (hyperlipidemia): Impression: Continue statin. Qualifiers: Hyperlipidemia type: unspecified Qualified Code(s): E78.5 - Hyperlipidemia, unspecified (6) H/O heart artery stent: Impression: Continue aspirin.
[2025-01-28] MEDS: DOCUSATE SODIUM 250 MG CAPSULE PO SCH (11:11)
[2025-01-28] MEDS: SENNA 8.6 MG TABLET PO SCH (11:11)
[2025-01-28] MEDS: INSULIN LISPRO 300 UNIT/3 ML PEN SUBQ SCH (11:24)
--- NOTE | 2025-01-28 16:55 | PT Plan of Care ---
PT Inpatient Plan of Care DIAGNOSIS Diagnosis: a-fib with RVR; acute on chronic resp failure Referring Provider: Valdo Randolph Patient Status: Inpatient CHIEF COMPLAINT Chief Complaint: weakness and SOB Onset of Chief Complaint: BETTING CLERKS on 01/24/25 MEDICAL/SURGICAL HISTORY Medical History (Updated 01/26/25 @ 13:13 by Valdo Randolph MD) HLD (hyperlipidemia) Myocardial infarction Surgical History (Updated 01/24/25 @ 17:15 by Yessica Foy RN) H/O heart artery stent BALANCE/FUNCTIONAL RESULTS Tinetti Composite Score (Balance + Gait): 19 Tinetti Assessment Interpretation: Moderate Fall Risk ASSESSMENT Assessment: The pt is a 64 y/o F who arrived to the ED on 01/24/25 due to worsening SOB and fatigue, she was hospitalized with a-fib with RVR and acute on chronic respiratory failure. Please see chart for complete medical hx. The pt was received resting comfortably sitting up in a recliner and presented today with fair/good strength grossly and decreased activity tolerance which limited her tolerance with functional mobility. At this time there are no acute skilled PT needs and recommend that the pt DC home with therapy for further rehab once pt medically stable. This plan was discussed with the pt and she was in agreement with this. At the end of the session the pt was sitting up in a chair with call light in reach and all needs met. RN updated on pt's status and DC rec, no goals will be set as this is an eval only. PATIENT/FAMILY GOALS Patient/Family Goals: To be able to stand long enough to do the dishes PLAN Frequency: Evaluation only, no further P.T. DISCHARGE RECOMMENDATIONS Discharge Location: Previous Living Situation Support/Services Needed: Home Health P.T. Other Discharge Equipment: pt owns all recommended DME Transport Needs at Discharge: Personal vehicle
[2025-01-28] MEDS: INSULIN GLARGINE-YFGN 300 UNIT/3 ML PEN SUBQ SCH (20:42)
[2025-01-29 04:47] LABS: HCT - HEMATOCRIT 39.9 % (37.0-47.0); HGB - HEMOGLOBIN 10.7 g/dL (12.0-16.0); MEAN CORPUSCULAR HEMOGLOBIN 23.6 pg (27.0-31.0); MEAN CORPUSCULAR HGB CONC 26.8 g/dL (32.0-36.0); MEAN CORPUSCULAR VOLUME 88.1 fL (81.0-99.0); MEAN PLATELET VOLUME 9.2 fL (7.9-10.8); RED BLOOD COUNT 4.53 10^6/uL (4.20-5.40); WHITE BLOOD COUNT 7.9 x10^3/uL (4.8-10.8)
[2025-01-29 05:02] LABS: MAGNESIUM 2.4 mg/dL (1.7-2.3)
[2025-01-29 05:07] LABS: CALCIUM 10.3 mg/dL (8.5-10.3); CREATININE 1.2 mg/dL (0.6-1.3); POTASSIUM 4.2 mmol/L (3.5-4.5)
--- NOTE | 2025-01-29 08:59 | OT Plan of Care ---
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 Cleared to OT evaluation. Met sitting in bedside chair, A&Ox4, willing to participate with therapy. Pt performed sit to stand and ambulation to/from bathroom using RW MOD I Able to perform toileting hygiene including LB clothing management with no LOB. Fatigued but stable on 2L NC with O2 88%-95% with mobility. Pt is at baseline function and will benefit from maintained mobility with nursing staff prn. No further skilled therapy needed at acute level of care. Rec d/c home with HHOT/PT and family assist. Plan Treatment Frequency Evaluation only, no further O.T. -Discharge Recommendations Support/Services Needed Home Health O.T. Transport Needs at Discharge Personal vehicle
[2025-01-29] MEDS: METOPROLOL TARTRATE 25 MG TABLET PO ONE (11:44)
--- NOTE | 2025-01-29 19:46 | PROVIDER PROGRESS NOTE ---
Subjective Prog Note Date Prog Note Date: 01/29/25 Prog Note Time: 19:44 Subjective Pt reports feeling: No change Subjective: patient was seen earlier today. I am writing a note late in the day. She is in the ICU but she is in MedSurg status. She has been seen by PT and OT and home health has been recommended. But her heart rate still remains in the 130s for most of the morning and afternoon. At home she takes diltiazem CD120 mg a day. Here she is on metoprolol 50 mg p.o. twice daily. And her Cardizem is 240 mg a day. She was also loaded on digoxin and is on digoxin 250 mcg a day. Telemetry documents atrial fibrillation with RVR. This is not a new diagnosis from her. This is present on previous EKGs. She states that she is tired. A little bit short of breath. She does not really feel the palpitations. She denies any abdominal pain, leg pain. Denies cough or chest congestion. Current Medications Current Medications Current Medications: Current Medications Generic Name Dose Route Start Last Admin Trade Name Freq PRN Reason Stop Dose Admin Acetaminophen 650 mg 01/24/25 15:47 01/26/25 06:16 Acetaminophen 325 Mg Tablet PO 650 mg Q4HR PRN Administration Pain 1 to 4, or Fever Apixaban 5 mg 01/24/25 21:00 01/29/25 08:13 Apixaban 5 Mg Tablet PO 5 mg BID TREY Administration Aspirin 81 mg 01/25/25 09:00 01/29/25 08:11 Aspirin Ec 81 Mg Tablet PO 81 mg DAILY TREY Administration Atorvastatin Calcium 40 mg 01/24/25 21:00 01/28/25 20:44 Atorvastatin 40 Mg Tablet PO 40 mg QPM TREY Administration Digoxin 250 mcg 01/26/25 09:00 01/29/25 08:12 Digoxin 125 Mcg Tablet PO 250 mcg DAILY TREY Administration Diltiazem HCl 240 mg 01/26/25 09:00 01/29/25 08:12 Diltiazem Cd 240 Mg Capsule PO 240 mg DAILY TREY Administration Docusate Sodium 250 - 500 mg 01/28/25 10:45 01/29/25 08:13 Docusate Sodium 250 Mg Capsule PO 500 mg DAILY TREY Administration Furosemide 40 mg 01/26/25 09:00 01/29/25 08:16 Furosemide 40 Mg/4 Ml Vial IVP 40 mg DAILY TREY Administration Insulin Glargine-yfgn 50 unit 01/28/25 21:00 01/28/25 20:42 Insulin Glargine-Yfgn 300 Unit/3 Ml Pen SUBQ 50 unit QPM TREY Administration Insulin Human Lispro 3 - 11 unit 01/25/25 21:00 01/29/25 17:11 Insulin Lispro 300 Unit/3 Ml Pen SUBQ 7 unit 0800,1200,1700,2100 TREY Administration Protocol Insulin Human Lispro 10 unit 01/28/25 12:00 01/29/25 17:11 Insulin Lispro 300 Unit/3 Ml Pen SUBQ 10 unit TIDWM TREY Administration Metoprolol Tartrate 5 mg 01/24/25 19:52 01/27/25 05:17 Metoprolol 5 Mg/5 Ml Vial IVP 5 mg Q6H PRN Administration Tachycardia Metoprolol Tartrate 75 mg 01/29/25 21:00 Metoprolol Tartrate 25 Mg Tablet PO BID TREY Ondansetron HCl 4 mg 01/24/25 15:47 Ondansetron Odt 4 Mg Tablet TL Q6HR PRN Nausea / Vomiting Empagliflozin [ 1 each 01/30/25 09:00 Jardiance] 25 Mg PO Tablet DAILY TREY Polyethylene Glycol 17 gm 01/27/25 09:00 01/29/25 08:16 Polyethylene Glycol 3350 17 Gm Packet PO 17 gm DAILY TREY Administration Senna 8.6 - 17.2 mg 01/28/25 10:45 01/29/25 08:16 Senna 8.6 Mg Tablet PO 17.2 mg DAILY TREY Administration Sodium Chloride 10 ml 01/24/25 17:00 01/29/25 17:11 Sodium Chloride Flush 0.9% 10 Ml Syringe IVP 10 ml 0100,0900,1700 TREY Administration Sodium Chloride 10 ml 01/24/25 15:47 Sodium Chloride Flush 0.9% 10 Ml Syringe IVP PRN PRN NEEDED PER PROVIDER ORDERS Objective Vital Signs/Intake & Output Reviewed Vital Signs: Yes Vital Signs: Vital Signs x48h Temp Pulse Resp BP Pulse Ox O2 Flow Rate 01/29/25 16:20 36.6 C 88 13 112/63 94 2 01/29/25 12:28 36.8 C 85 15 99/54 L 94 2 Intake & Output: Intake & Output 01/26/25 01/27/25 01/28/25 01/29/25 23:59 23:59 23:59 23:59 Intake Total 1095 / 1095 716 / 716 1345 / 1345 1095 / 1095 Output Total 4545 / 4545 3900 / 3900 3425 / 3425 2800 / 2800 Balance -3450 / -3450 -3184 / -3184 -2080 / -2080 -1705 / -1705 Weight (kg) 157.5 kg 157 kg 154.5 kg 153 kg Objective General Appearance: positive No acute distress and Alert Eyes Bilateral: positive PERRL ENT: positive No signs of dehydration and Other (She is missing part of her teeth and does use dentures) Neck: positive Nml inspection and No JVD; negative Stiff neck Respiratory: positive No respiratory distress and Breath sounds nml (Diminished at the bases for both sides. No respiratory distress with talking to me or sitting up) Cardiovascular: positive Irregularly irregular and Tachycardia Abdomen: positive Non-tender, No organomegaly, Nml bowel sounds and Other (Hutchins in place.obese panus. Bowel movement today) Skin: positive Other (Edema of both legs with the left back calf having skin loss and is weeping. She is getting dressing changes from the nurses. The skin is thick, scaling indicating that she has chronic venous stasis dermatitis.) Extremities: positive Full ROM, Pedal edema (going up to buttocks. ) and Other (See skin above) Neurologic/Psychiatric: positive Oriented x3, Motor nml and Weakness (Mild. She is a standby assist. She has chronic peripheral neuropathy so she sometimes feels like her legs are weaker than her arms.) Lab Results 01/29/25 04:41 01/29/25 04:41 Other Labs: Lab Results x24hrs 01/29/25 01/29/25 01/29/25 Range/Units 17:08 11:42 07:40 WBC (4.8-10.8) x10^3/uL RBC (4.20-5.40) 10^6/uL Hgb (12.0-16.0) g/dL Hct (37.0-47.0) % MCV (81.0-99.0) fL MCH (27.0-31.0) pg MCHC (32.0-36.0) g/dL RDW (12.0-15.0) % Plt Count (130-450) 10^3/uL MPV (7.9-10.8) fL Sodium (135-145) mmol/L Potassium (3.5-4.5) mmol/L Chloride (101-111) mmol/L Carbon Dioxide (21-32) mmol/L Anion Gap (6-13) BUN (6-20) mg/dL Creatinine (0.6-1.3) mg/dL Estimated GFR (MDRD) (>89) Glucose (74-104) mg/dL POC Whole Bld Glucose 250 283 180 (70-100) mg/dL Calcium (8.5-10.3) mg/dL Magnesium (1.7-2.3) mg/dL 01/29/25 01/28/25 Range/Units 04:41 20:36 WBC 7.9 (4.8-10.8) x10^3/uL RBC 4.53 (4.20-5.40) 10^6/uL Hgb 10.7 L (12.0-16.0) g/dL Hct 39.9 (37.0-47.0) % MCV 88.1 (81.0-99.0) fL MCH 23.6 L (27.0-31.0) pg MCHC 26.8 L (32.0-36.0) g/dL RDW 19.0 H (12.0-15.0) % Plt Count 270 (130-450) 10^3/uL MPV 9.2 (7.9-10.8) fL Sodium 145 (135-145) mmol/L Potassium 4.2 (3.5-4.5) mmol/L Chloride 105 (101-111) mmol/L Carbon Dioxide 34 H (21-32) mmol/L Anion Gap 6.0 (6-13) BUN 35 H (6-20) mg/dL Creatinine 1.2 (0.6-1.3) mg/dL Estimated GFR (MDRD) 46 L (>89) Glucose 181 H (74-104) mg/dL POC Whole Bld Glucose 242 (70-100) mg/dL Calcium 10.3 (8.5-10.3) mg/dL Magnesium 2.4 H (1.7-2.3) mg/dL Assessment/Plan Problem List (1) Atrial fibrillation with rapid ventricular response: Impression: Patient was diagnosed with new onset atrial fibrillation with rapid ventricular response on an emergency room visit, 01/10/2025. Started on Eliquis 2.5 twice daily. This was increased to 5 mg twice daily at this time. She also was discharged on diltiazem 120 mg daily. To control her rate, diltiazem increased to 240 milligrams daily plus she was started her on metoprolol tartrate 25 mg twice daily 01/27 then increased again 01/28 50mg BID because rate not controlled. Her blood pressures has been decreasing with this. So she was then loaded with digoxin, her levels checked and they are therapeutic. She was continued her on digoxin 250 mg daily. ECHO was reviewed from 01/24/2025 mild to moderate tricuspid regurgitation was noted, and there was increased left atrial pressure and enlargement was noted. But the left ventricle was not able to be well-visualized because of rate. Her right ventricle is very dilated and the right systolic function mildly decreased. She had an echo done in November 2024 and that showed an LVEF of 50%. Mild diastolic dysfunction. Mild dilated right ventricle with normal right ventricular function. Pulmonary artery pressure upper limits of normal. No valve was well-seen. So in the last 2 months she has been developing right sided heart failure. Patient has not seen cardiology in multiple years. She already has an appointment set up with them for February. For today I am going to increase her metoprolol to 75 mg p.o. twice daily. Give 1 dose of metoprolol 25 mg p.o. (2) Acute on chronic hypoxic respiratory failure: Impression: Last visit, patient was discharged on 2 L of oxygen. Her weight on January 18 was 164 kg. And that was increased from the 147 kg on December 21. With this visit, her weight is 165.8 on admission. She is diffusely fluid overloaded, has diffuse anasarca, ascites, pleural effusions. So I attribute her hypoxic respiratory failure to be from acute worsening right-sided heart failure and probably new left-sided heart failure from A-fib with RVR. Today's weight is 153 kg. She is improved and has been urinating 2800 to 4500 cc a day. diuresis was with IV Lasix 40 mg twice daily for a couple days. Her creatinine worsened and the Lasix was decreased to once daily, with improvement of her creatinine. She still is diffusely volume overloaded. I am continuing the low-salt diet, fluid restriction, strict ins and outs, daily weights. - In looking at her previous weights, dry weight may be the 147 kg. Plan: continue IV lasix once a day. and continue to monitor the creatinine response. While we are seeing gratifying response to our treatment with diuretics, this patient still has a ways to go. . (3) Acute kidney injury: Impression: Baseline creatinine appears to be between 1.1 and 1.2. Her creatinine bumped to 1.5. It then improved with decreased dose of her diuretic to 1.3 and today she is at her baseline of 1.2 but. She still is diffusely volume overloaded. (4) Type 2 diabetes mellitus with foot ulcer: Impression: Patient was supposedly taking 100 mg twice daily of Lantus at home. When she arrived, her sugars were in the 120s. We started a lower dose of Lantus, 30 units at night. Her sugars have increased while she has been here. As such her Lantus was increased to 50 units on the night of January 28 and her scheduled mealtime insulin was increased to 10 units before each meal and sliding scale continued. This morning her glucose was 181. At lunchtime it was 283. And at dinnertime she was 250. I will increase her mealtime insulin to 14 units and continue the Lantus 50 units. Left calf ulceration stable, not actively infected. Qualifiers: Diabetes mellitus mcc insulin use: with mcc use Qualified Code(s): E11.621 - Type 2 diabetes mellitus with foot ulcer; L97.509 - Non- pressure chronic ulcer of other part of unspecified foot with unspecified severity; Z79.4 - terminal manager (current) use of insulin (5) HLD (hyperlipidemia): Impression: Continue statin. Qualifiers: Hyperlipidemia type: unspecified Qualified Code(s): E78.5 - Hyperlipidemia, unspecified (6) H/O heart artery stent: Impression: Continue aspirin.
[2025-01-29] MEDS: METOPROLOL TARTRATE 25 MG TABLET PO SCH (20:47)
--- NOTE | 2025-01-30 08:10 | PROVIDER PROGRESS NOTE ---
Subjective Prog Note Date Prog Note Date: 01/30/25 Prog Note Time: 07:58 Subjective Pt reports feeling: Improved Subjective: She says that she is definitely losing weight. She laughs at the amount of time she has to get up to go to the bathroom to pee. She says it is giving her the exercise that she usually does not get. The legs feel less tight and painful. She still gets easily tachypneic with getting up out of bed. We have been increasing her rate lowering medications to control her heart rate. Yesterday I increased her metoprolol and gave her an extra dose of IV Lopressor. Her rate lingers in the low 100s. And when she starts talking to me she goes to 120s. She does not feel that. She denies any chest pain, cough, and only feels short of breath when she has to get up and do something. Current Medications Current Medications Current Medications: Current Medications Generic Name Dose Route Start Last Admin Trade Name Freq PRN Reason Stop Dose Admin Acetaminophen 650 mg 01/24/25 15:47 01/26/25 06:16 Acetaminophen 325 Mg Tablet PO 650 mg Q4HR PRN Administration Pain 1 to 4, or Fever Apixaban 5 mg 01/24/25 21:00 01/29/25 20:48 Apixaban 5 Mg Tablet PO 5 mg BID TREY Administration Aspirin 81 mg 01/25/25 09:00 01/29/25 08:11 Aspirin Ec 81 Mg Tablet PO 81 mg DAILY TREY Administration Atorvastatin Calcium 40 mg 01/24/25 21:00 01/29/25 20:48 Atorvastatin 40 Mg Tablet PO 40 mg QPM TREY Administration Digoxin 250 mcg 01/26/25 09:00 01/29/25 08:12 Digoxin 125 Mcg Tablet PO 250 mcg DAILY TREY Administration Diltiazem HCl 240 mg 01/26/25 09:00 01/29/25 08:12 Diltiazem Cd 240 Mg Capsule PO 240 mg DAILY TREY Administration Docusate Sodium 250 - 500 mg 01/28/25 10:45 01/29/25 08:13 Docusate Sodium 250 Mg Capsule PO 500 mg DAILY TREY Administration Furosemide 40 mg 01/26/25 09:00 01/29/25 08:16 Furosemide 40 Mg/4 Ml Vial IVP 40 mg DAILY TREY Administration Insulin Glargine-yfgn 50 unit 01/28/25 21:00 01/29/25 20:48 Insulin Glargine-Yfgn 300 Unit/3 Ml Pen SUBQ 50 unit QPM TREY Administration Insulin Human Lispro 3 - 11 unit 01/25/25 21:00 01/29/25 20:49 Insulin Lispro 300 Unit/3 Ml Pen SUBQ 7 unit 0800,1200,1700,2100 TREY Administration Protocol Insulin Human Lispro 14 unit 01/30/25 08:00 Insulin Lispro 300 Unit/3 Ml Pen SUBQ TIDWM TREY Metoprolol Tartrate 5 mg 01/24/25 19:52 01/27/25 05:17 Metoprolol 5 Mg/5 Ml Vial IVP 5 mg Q6H PRN Administration Tachycardia Metoprolol Tartrate 100 mg 01/30/25 09:00 Metoprolol Tartrate 50 Mg Tablet PO BID TREY Ondansetron HCl 4 mg 01/24/25 15:47 Ondansetron Odt 4 Mg Tablet TL Q6HR PRN Nausea / Vomiting Empagliflozin [ 1 each 01/30/25 09:00 Jardiance] 25 Mg PO Tablet DAILY TREY Polyethylene Glycol 17 gm 01/27/25 09:00 01/29/25 08:16 Polyethylene Glycol 3350 17 Gm Packet PO 17 gm DAILY TREY Administration Senna 8.6 - 17.2 mg 01/28/25 10:45 01/29/25 08:16 Senna 8.6 Mg Tablet PO 17.2 mg DAILY TREY Administration Sodium Chloride 10 ml 01/24/25 17:00 01/30/25 00:53 Sodium Chloride Flush 0.9% 10 Ml Syringe IVP 10 ml 0100,0900,1700 TREY Administration Sodium Chloride 10 ml 01/24/25 15:47 Sodium Chloride Flush 0.9% 10 Ml Syringe IVP PRN PRN NEEDED PER PROVIDER ORDERS Objective Vital Signs/Intake & Output Reviewed Vital Signs: Yes Vital Signs: Vital Signs x48h Temp Pulse Resp BP Pulse Ox O2 Flow Rate 01/30/25 04:00 36.9 C 93 14 110/67 92 2 01/30/25 00:53 36.9 C 121 H 15 94/70 95 2 Intake & Output: Intake & Output 01/27/25 01/28/25 01/29/25 01/30/25 23:59 23:59 23:59 23:59 Intake Total 716 / 716 1345 / 1345 1095 / 1095 375 / 375 Output Total 3900 / 3900 3425 / 3425 2800 / 2800 1145 / 1145 Balance -3184 / -3184 -2080 / -2080 -1705 / -1705 -770 / -770 Weight (kg) 157 kg 154.5 kg 153 kg 151 kg Objective General Appearance: positive No acute distress (Sitting upright in her chair), Alert and Other (Pleasant, morbidly obese white female, looks older than stated age, no respiratory distress at rest. Weight loss continues. Down to 151 kg today.) Eyes Bilateral: positive PERRL ENT: positive No signs of dehydration (Laments that she only has a liter and a half fluid restriction) Neck: positive No JVD (But it is a thick neck and it is difficult to assess); negative Stiff neck Cardiovascular: positive Irregularly irregular and Tachycardia Abdomen: positive Non-tender and Other (Large abdominal pannus) Skin: positive Warm and Dry Extremities: positive Other (Both legs still with tight edema. Skin does not show signs of wrinkling shrinkage yet. The right anterior bradley is red and warm. The left posterior bradley is covered in bandage. There is some flaking and thickening of both shins from chronic venous stasis. But it is not severe. There is no acquir) Neurologic/Psychiatric: positive Oriented x3, CN's nml (2-12), Motor nml and Weakness (It is a real effort to get up out of the chair to walk to the bathroom but she can do it with a walker) Lab Results 01/29/25 04:41 01/29/25 04:41 Other Labs: Lab Results x24hrs 01/29/25 01/29/25 01/29/25 Range/Units 20:30 17:08 11:42 POC Whole Bld Glucose 239 250 283 (70-100) mg/dL Assessment/Plan Problem List (1) Cor pulmonale, acute: Impression: ECHO was reviewed from 01/24/2025 mild to moderate tricuspid regurgitation was noted, and there was increased left atrial pressure and enlargement was noted. But the left ventricle was not able to be well-visualized because of rate. Her right ventricle is very dilated and the right systolic function mildly decreased. She had an echo done in November 2024 and that showed an LVEF of 50%. Mild diastolic dysfunction. Mild dilated right ventricle with normal right ventricular function. Pulmonary artery pressure upper limits of normal. No valve was well-seen. So in the last 2 months she has been developing right sided heart failure. This would explain the generalized anasarca that we were seeing on physical exam. Weight on admission was 165.8 kg. She is now done 151. It appears that her lowest weight is 147 kg. That was present at discharge December 21. My plan is to continue to give her IV diuresis until we can get her to 147 kg. (2) Atrial fibrillation with rapid ventricular response: Impression: Patient was diagnosed with new onset atrial fibrillation with rapid ventricular response on an emergency room visit, 01/10/2025. Started on Eliquis 2.5 twice daily. This was increased to 5 mg twice daily at this time. She also was discharged on diltiazem 120 mg daily. To control her rate, diltiazem increased to 240 milligrams daily plus she was started her on metoprolol tartrate 25 mg twice daily 01/27 then increased again 01/28 50mg BID because rate not controlled. I increased the metoprolol to 75 mg bid 01/29. Her blood pressures has been decreasing with this. So she was then loaded with digoxin, her levels checked and they are therapeutic. She was continued her on digoxin 250 mg daily. Patient has not seen cardiology in multiple years. She already has an appointment set up with them for February. Today she continues to be tachycardic. Yesterday she was as high as the 130s. Today she only goes to 121 when she speaking to me or moves around in her chair. At rest she will drop to the low 100s. Plan is to increase her metoprolol to 100 mg p.o. twice daily. And I have to be careful with her blood pressure.I also advised nursing to make sure we keep an eye on her telemetry because I could easily put her into secondary third-degree AV block (3) Acute on chronic hypoxic respiratory failure: Impression: Last visit, patient was discharged on 2 L of oxygen. Her weight on January 18 was 164 kg. And that was increased from the 147 kg on December 21. With this visit, her weight is 165.8 on admission. She is diffusely fluid overloaded, has diffuse anasarca, ascites, pleural effusions. So I attribute her hypoxic respiratory failure to be from acute worsening right-sided heart failure and probably new left-sided heart failure from A-fib with RVR. Today's weight is 151 kg. She has improved and has been urinating 2800 to 4500 cc a day. But she is still on 2 L of oxygen. That has been her steady state. There was a moment yesterday where she had to go up to 3 L but has come back down to 2 L. diuresis was with IV Lasix 40 mg twice daily for a couple days. Her creatinine worsened and the Lasix was decreased to once daily, with improvement of her creatinine. She still is diffusely volume overloaded.I am hoping that when I can get her to her dry weight she can come off of her oxygen. I am continuing the low-salt diet, fluid restriction, strict ins and outs, daily weights. - In looking at her previous weights, dry weight may be the 147 kg. Plan: continue IV lasix once a day. and continue to monitor the creatinine response. While we are seeing gratifying response to our treatment with diuretics, this patient still has a ways to go. . (4) Acute kidney injury: Impression: Baseline creatinine appears to be between 1.1 and 1.2. Her creatinine bumped to 1.5. It then improved with decreased dose of her diuretic to 1.3 and 01/29 she was at her baseline of 1.2 but. She still is diffusely volume overloaded. No labs done today. I will check again tomorrow. (5) Type 2 diabetes mellitus with foot ulcer: Impression: Patient was supposedly taking 100 mg twice daily of Lantus at home. When she arrived, her sugars were in the 120s. We started a lower dose of Lantus, 30 units at night. Her sugars have increased while she has been here. As such her Lantus was increased to 50 units on the night of January 28 and her scheduled mealtime insulin was increased to 10 units before each meal and sliding scale continued. on the morning of 01/29, her glucose was 181. At lunchtime it was 283. And at dinnertime she was 250. I increased her mealtime insulin to 14 units and continued the Lantus 50 units. I ordered that last night and the new doses will start this morning. Left calf ulceration stable, not actively infected. Wound care is ongoing for this. After today, I will reassess her need for insulin. Adjust as needed. Qualifiers: Diabetes mellitus buttermaker insulin use: with buttermaker use Qualified Code(s): E11.621 - Type 2 diabetes mellitus with foot ulcer; L97.509 - Non- pressure chronic ulcer of other part of unspecified foot with unspecified severity; Z79.4 - watermaster (current) use of insulin (6) HLD (hyperlipidemia): Impression: Continue statin. Qualifiers: Hyperlipidemia type: unspecified Qualified Code(s): E78.5 - Hyperlipidemia, unspecified (7) H/O heart artery stent: Impression: Continue aspirin.
[2025-01-30] MEDS: INSULIN LISPRO 300 UNIT/3 ML PEN SUBQ SCH (08:35)
[2025-01-30] MEDS: METOPROLOL TARTRATE 50 MG TABLET PO SCH (08:42)
[2025-01-30] MEDS ORDERED: ZINC OXIDE 20% OINT 30 GM TUBE TOP PRN (18:45)
[2025-01-31 05:41] LABS: CALCIUM 10.2 mg/dL (8.5-10.3); CREATININE 1.2 mg/dL (0.6-1.3); POTASSIUM 4.2 mmol/L (3.5-4.5)
[2025-01-31] MEDS: FUROSEMIDE 40 MG/4 ML VIAL IVP SCH (08:18)
--- NOTE | 2025-01-31 16:04 | Discharge Summary ---
"Discharge Summary Admit Date: 01/24/25 Discharge Date: 01/31/25 Discharging Provider: Aruna Ventura MD Primary Care Provider: Jamee belle PA-C Code Status: Attempt Resuscitation DIAGNOSES Discharge Diagnoses with Status of Each Condition: 1. Acute cor pulmonale 2. Atrial fibrillation with rapid ventricular response 3. Acute on chronic hypoxic respiratory failure 4. Acute kidney injury, present on admission and resolved 6. 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 Hyperlipidemia 8. History of coronary artery disease with stent CONSULTS | PROCEDURES Procedures: Chest x-ray has cardiomegaly and pulmonary vascular congestion with right greater than left bilateral pleural effusions and suggestion of pulmonary edema consistent with congestive heart failure. No focal infiltrates and no pneumothorax. Abdomen pelvis CT was done to check her abdominal distention and ascites/anasarca. She had small biliary stones in the gallbladder. Pancreas had a 1.5 cm pancreatic body cystic lesion. Adrenals had a 4.2 x 3.7 cm left adrenal nodule. She had a nonobstructing left lower pole renal calculus at 1.2 cm. Asymmetric mild to moderate left renal atrophy. No hydronephrosis. Mild to moderate ascites. The body wall of her abdomen had diffuse moderate anasarca and subcutaneous edema particularly in the anterior pannus. The lower cuts showed mild to moderate pleural effusions. Echocardiogram done January 24 was compared to December 2024. The left ventricle was not well-visualized. A repeat limited study with echocardiogram enhancement agent (microbubble) may be indicated when her rate is better controlled. It was difficult to assess for regional wall motion abnormalities because of the A-fib. The right ventricular systolic function was mildly decreased. She had a dilated right ventricle. There was left atrial enlargement. Right atrium not well-visualized. Left lower extremity wound culture with Staph aureus and strep agalactiae. This is interpreted as colonization of an open skin area. Not active infection HOSPITAL COURSE Hospital Course: (1) Cor pulmonale, acute: Impression: She had an echo done in November 2024 and that showed an LVEF of 50%. Mild diastolic dysfunction. Mild dilated right ventricle with normal right ventricular function. Pulmonary artery pressure upper limits of normal. No valve was well-seen. ECHO was redone 01/24/2025 and my review was read as mild to moderate tricuspid regurgitation, and there was increased left atrial pressure and enlargement was noted. But the left ventricle was not able to be well- visualized because of rate. Her right ventricle is very dilated and the right systolic function mildly decreased. So in the last 2 months she has been developing right sided heart failure. This would explain the generalized anasarca that we were seeing on physical exam. Weight on admission was 165.8 kg. Today she is 151.5 kg. It appears that her lowest weight is 147 kg. That was present at discharge December 21. She received IV diuresis with Lasix. There was a slight bump in creatinine because of twice daily dosing so we reduced her dosing to once a day. The patient is still not at dry weight. But she would like to go home. She is ambulating, eating, has no shortness of breath. She is amazed at how much anasarca has resolved in her buttocks and low back. But she still has 2+ edema in her legs up to above her knees. I explained to her that her dry weight is most likely 147 kg. I am sending her home on Lasix 40 mg a day but every second day or every third day I would like her to take another dose at 2 PM. She needs to be followed up closely by her primary care provider or her electronic prepress system operator to help her reach that goal of 147 kg. She needs to maintain a very low-salt diet. She promises to do as instructed. She says that she has received all these instructions before knows what to do. (2) Atrial fibrillation with rapid ventricular response: Impression: Patient was diagnosed with new onset atrial fibrillation with rapid ventricular response on an emergency room visit, 01/10/2025. Started on Eliquis 2.5 twice daily. This was increased to 5 mg twice daily at this time. She also was discharged on diltiazem 120 mg daily. To control her rate, diltiazem increased to 240 milligrams daily plus she was started her on metoprolol tartrate 25 mg twice daily 01/27 then increased again 01/28 50mg BID because rate not controlled. I increased the metoprolol to 75 mg bid 01/29. Her blood pressures has been decreasing with this. So she was then loaded with digoxin, her levels checked and they are therapeutic. She was continued her on digoxin 250 mg daily. Although she was still tachycardic in the 120s on January 30, she is now down into the 70s and 80s at discharge. She really wants to go home. At discharge, I do not want to discharge her on 3 rate lowering medications. She has been monitored on telemetry and she has done very well and that her heart rate is now in the 70s. But I am afraid of sending her home on 3 rate lowering medications that are going to put her in a 2nd or 3rd degree AV block. So I am sending her home on metoprolol 50 mg tablets, 2 tablets twice a day. And I am doubling her usual Cardizem dose of 120 mg a day to 240 mg a day.She is being continued on the Eliquis. Patient has not seen cardiology in multiple years. She already has an appointment set up with them for February. (3) Acute on chronic hypoxic respiratory failure: Impression: Last visit, patient was discharged on 2 L of oxygen. Her weight on January 18 was 164 kg. And that was increased from the 147 kg on December 21. With this visit, her weight is 165.8 on admission. She is diffusely fluid overloaded, has diffuse anasarca, ascites, pleural effusions. During her stay her need for oxygen was as high as 3-1/2 to 4 L nasal cannula to maintain her O2 sats above 92%. However, since January 24 she has been on her baseline 2 L nasal cannula. So I attribute her hypoxic respiratory failure to be from acute worsening right- sided heart failure and probably new left-sided heart failure from A-fib with RVR. Today's weight is 151.5 kg. She has improved and has been urinating 2800 to 4500 cc a day. But she is still on 2 L of oxygen. That has been her steady state. diuresis was with IV Lasix 40 mg twice daily for a couple days. Her creatinine worsened and the Lasix was decreased to once daily, with improvement of her creatinine. She still is diffusely volume overloaded.I am hoping that when I can get her to her dry weight she can come off of her oxygen. I told her to continue a low-salt diet, fluid restriction, strict ins and outs, daily weights. She is not happy at the fluid intake restriction but I told her it is for her own good so that she does not gain back all the water weight. She states that she is really, really happy at how much weight she has lost. She wants to continue this. - In looking at her previous weights, dry weight may be the 147 kg. Follow-up with her primary care provider. I would recommend that she should have her room air saturations checked sporadically in the clinic to see if there is a point where she could finally come off oxygen. Currently going home on the baseline of 2 L of nasal cannula . (4) Acute kidney injury: Impression: Baseline creatinine appears to be between 1.1 and 1.2. Her creatinine bumped to 1.5. It then improved with decreased dose of her diuretic to 1.3 and 01/29 she was at her baseline of 1.2. At discharge she is 1.2. (5) Type 2 diabetes mellitus with calf ulcer/loss of skin from edema: Impression: Patient was supposedly taking 100 mg twice daily of Lantus at home. When she arrived, her sugars were in the 120s. We started a lower dose of Lantus, 30 units at night. Her sugars have increased while she has been here. As such her Lantus was increased to 50 units on the night of January 28 and her scheduled mealtime insulin was increased to 10 units before each meal and sliding scale continued. on the morning of 01/29, her glucose was 181. At lunchtime it was 283. And at dinnertime she was 250. I increased her mealtime insulin to 14 units and continued the Lantus 50 units at night and added 20 units for the morning. I explained that she was on too much insulin at home. She did describe some low sugar reactions. So she is to stay on 50 units at night, 20 units in the morning, and 14 units of short acting insulin with each meal. Left calf ulceration stable, not actively infected. Wound care Was not complicated. Basically it was changing her dressings every day and keeping the wound clean and dry. I asked her to please continue that instruction at home. Qualifiers Diabetes mellitus intermodal customer service insulin use: with detention use Qualified Code(s): E11.621 - Type 2 diabetes mellitus with foot ulcer; L97.509 - Non- pressure chronic ulcer of other part of unspecified foot with unspecified severity; Z79.4 - USP (current) use of insulin (6) HLD (hyperlipidemia): Impression: Continue statin. Qualifiers: Hyperlipidemia type: unspecified Qualified Code(s): E78.5 - Hyperlipidemia, unspecified (7) H/O heart artery stent: Impression: Troponin was checked on admission and she was 8.1. She did not have any chest pain with her atrial fibrillation. In fact most of the time she was not aware she was having palpitations. Aspirin was continued with the DOAC for her atrial fibrillation. (8) adrenal nodule. Impression: This was noted as an incidental finding as we treated her congestive heart failure and anasarca. But it should be followed up in the outpatient setting at the discretion of the primary care provider. The pancreatic lesion looks like it is a plain cystic lesion. At discharge this patient is sitting up in her chair. She is still quite a portly lady, slightly disheveled and her abdomen protuberance is impressive. She looks older than stated age. She is 5 foot 6 inches tall, 151.5 kg. Alert and oriented to person, place, time and situation. Able to follow commands. Neck is thick and I cannot really see JVD. Diminished breath sounds at the bases without any increased respiratory effort or respiratory distress. No crackles, rhonchi or wheezing. An irregular rate and rhythm with pulse in the 70s. An abdomen that is soft, nontender, hugely protuberant, normal bowel sounds. Anasarca was severe on admission. She now has pedal edema starting at mid thighs going down to her feet. The legs are much improved. She has some minimal scaling and dryness of venous stasis dermatitis over both the anterior shins. The right anterior bradley has redness but no skin breakdown, and I do not believe it is infected in spite of the redness. The left anterior bradley has more thickening and scaling than the right does. The loss of skin is in the back left calf. It seems as if the sheet of skin is fallen off but there is no true deep ulceration. It is clear serous drainage. She does have 2+ edema over her shins and calves. It is not stretched taut. She uses a front wheel walker and a wheelchair. She has stairs at home and does not have a ramp at home. But she is insistent that she will be able to get into her house and she plans on using a bus to get home. She has grab bars, shower/bath chair at home. She is essentially chair fast at home. Needs minimal assist to standby assist for bed mobility, transferring from laying down to sitting to standing. She stands with a front wheel walker and does not require cues. When she was here she was able to walk 15 feet on a level ground and demonstrated fair endurance with this. She was limited by fatigue but felt like she could go home with this. She already has home health in place. I am reordering home health. She is very open with us about the loss that she has had in life. She has lost her mother and her daughter and feels like she still not over that. Her family is very supportive and her granddaughter helps quite a bit. Her son also helps quite a bit. Greater than 30 minutes was spent coordinating discharge This document was made in part using voice recognition software. While efforts are made to proofread this document, sound alike and grammatical errors may occur. ALLERGIES Allergies Allergy/AdvReac Type Severity Reaction Status Date / Time levofloxacin Allergy Intermediate swelling Verified 01/24/25 12:02 in mouth ibuprofen AdvReac Emesis Verified 01/24/25 12:02 rosiglitazone maleate * AdvReac Edema Verified 01/24/25 12:02 (From [facility]) MEDICATIONS Ambulatory Orders Medication Instructions Recorded Confirmed insulin glargine 100 unit/mL (3 100 unit subcut BID 04/28/17 01/24/25 mL) subcutaneous pen (Lantus Solostar U-100 Insulin) insulin lispro 100 unit/mL 60 unit subcut TIDWM 04/28/17 01/24/25 subcutaneous solution (Humalog U-100 Insulin) empagliflozin 25 mg tablet 25 mg PO DAILY 04/19/23 01/24/25 (Jardiance) rosuvastatin 20 mg tablet 20 mg PO DAILY 04/19/23 01/24/25 apixaban 2.5 mg tablet (Eliquis) 2.5 mg PO DAILY 12/19/24 01/24/25 aspirin 81 mg tablet,delayed 81 mg PO DAILY 12/19/24 01/24/25 release prednisone 20 mg tablet 40 mg (2 x 20 mg) PO DAILYWM 1 day 12/21/24 01/24/25 #2 tabs albuterol sulfate 90 mcg/actuation 2 puff inhalation Q4-6H PRN 01/24/25 01/24/25 aerosol inhaler shortness of breath or wheezing furosemide 40 mg tablet 40 mg PO DAILY 01/24/25 01/24/25 diltiazem HCl 120 mg 240 mg (2 x 120 mg) PO DAILY #60 01/31/25 capsule,extended release 24 hr caps (Cardizem CD) metoprolol tartrate 50 mg tablet 100 mg (2 x 50 mg) PO BID #30 tabs 01/31/25 PHYSICAL EXAM AT DISCHARGE Vital Signs: Vital Signs x48h Temp Pulse Pulse Resp BP BP BP 01/31/25 13:00 36.8 C 74 18 112/44 L 01/31/25 09:30 01/31/25 08:49 36.5 C 90 18 109/72 01/31/25 08:22 129 H 130/70 Pulse Ox O2 Flow Rate 01/31/25 13:00 97 2 01/31/25 09:30 2 01/31/25 08:49 95 2 01/31/25 08:22 LABS 01/29/25 04:41 01/31/25 05:18 Discharge Plan Discharge Patient Disposition: 06 Home Health Service Condition: Stable Prescriptions: New metoprolol tartrate 50 mg Tablet 100 mg PO BID Qty: 30 0RF Continued insulin lispro [Humalog U-100 Insulin] 100 UNIT/ML solution 60 unit subcut TIDWM insulin glargine [Lantus Solostar U-100 Insulin] 100 UNIT/ML insulin pen 100 unit subcut BID rosuvastatin 20 MG tablet 20 mg PO DAILY Jardiance 25 MG tablet 25 mg PO DAILY aspirin 81 mg tablet,delayed release (DR/EC) 81 mg PO DAILY Patient Comments: Pt. states she sometimes takes a 2nd dose late at night Eliquis 2.5 mg tablet 2.5 mg PO DAILY prednisone 20 mg Tablet 40 mg PO DAILYWM 1 Days Qty: 2 0RF albuterol sulfate 90 mcg/actuation HFA aerosol inhaler 2 puff INHALATION Q4-6H PRN (Reason: shortness of breath or wheezing) Patient Comments: INHALE 2 PUFFS BY MOUTH EVERY 4 TO 6 HOURS NEEDED FOR WHEEZING OR SHORTNESS OF BREATH. NOT TO EXCEED 10 PUFFS IN 24 HOURS. furosemide 40 MG tablet 40 mg PO DAILY Patient Comments: Per patient she's only taking 40mg daily Changed diltiazem HCl [Cardizem CD] 120 mg capsule,extended release 24hr 240 mg PO DAILY Qty: 60 0RF Activity Restrictions: Activity as Tolerated Diet: Diabetic Health Concerns: You came into the hospital and were brought in by one of your family members because you were very short of breath. We noticed that you have been gradually increasing your weight for a few months. We measure weight by kilograms in the hospital. 1 kg is 2.2 pounds. You had gained a tremendous amount of weight, and you had quite a bit of water weight in your feet, legs, all the way up into your buttocks and abdomen. You are already on oxygen at home but were needing quite a bit of oxygen in the emergency room. We also found you to have a very elevated heart rate. You have atrial fibrillation and your atrial fibrillation was uncontrolled with a high heart rate. We put you in the intensive care unit to give you intravenous medication to control your heart rate. We also started giving you intravenous Lasix to get you to pee off all of this water weight. We think that your baseline water weight is 148 kg. You were admitted to 168 kg. We have been able to slow down your heart rate by doubling up your Cardizem, adding and medicine called digoxin, and adding a medication called metoprolol. Today your weight is down to 151 kg. And your pulse is 74. You are really anxious to get home. But I can only emphasize to you that you still have a ways to go before you get down to your dry weight of 148 kg. You must be compliant with a low-salt diet and you must take your medication as instructed. You tell me that you know the instructions. That you have done this before. However, I am afraid about sending you home on 3 medications that slow down your heart rate. Eventually, you will reach a balance of weight and heart rate. And 3 medicines to reduce your heart rate is too many. So I am not going to send you home on the 3 heart rate medications you were on here. I am only going to send you home on 2. I changed your Cardizem CD from one 120 mg capsule and take 2 capsules a day. I am also starting you on metoprolol 50 mg tablet. Take 2 tablets twice a day. Continue to take Lasix in the morning. But every other day or every third day (marked on your calendar) take another 40 mg tablet at 2 in the afternoon. Finally, your lantus insulin dose of 100 units twice a day was too much for you here in the hospital. We have you taking 20 units in the morning. 50 units at night. And take 14 units of short acting lispro insulin with each meal. We are sending you home on this new instruction. Please see your primary care provider in follow-up. See them in the next 1 to 2 days. Print Language: Turkmen Patient Instructions: Heart Failure, Heart Failure Warning Signs, Heart Failure Diet Changes, Heart Failure Chart, Heart Failure Baselines Follow-up Care: JAMEE HARRIS PA-C [Primary Care Provider] -"
[2025-01-31 16:11] VITALS: BP 96/48; TEMP 97.9; O2SAT 95
== END 2025-01-31 16:50 | disposition home health service (06) | DRG 189 ==
LOC: ED 11:34 → ICU 15:08 → MS3 01-30 14:38
PROVIDERS: ADMIT Internal Medicine; ATTEND Internal Medicine
DX: Z79.4 Long term (current) use of insulin; E78.5 Hyperlipidemia, unspecified; R06.00 Dyspnea, unspecified; R63.5 Abnormal weight gain; R00.0 Tachycardia, unspecified; Z99.3 Dependence on wheelchair; I87.2 Venous insufficiency (chronic) (peripheral); N17.9 Acute kidney failure, unspecified; I48.91 Unspecified atrial fibrillation; I50.810 Right heart failure, unspecified; R60.1 Generalized edema; Z68.43 Body mass index [BMI] 50.0-59.9, adult; E11.649 Type 2 diabetes mellitus with hypoglycemia without coma; L97.519 Non-pressure chronic ulcer of other part of right foot with unspecified severity; K86.2 Cyst of pancreas; Z79.01 Long term (current) use of anticoagulants; J96.21 Acute and chronic respiratory failure with hypoxia; R63.0 Anorexia; N20.0 Calculus of kidney; J90 Pleural effusion, not elsewhere classified; I87.8 Other specified disorders of veins; I25.2 Old myocardial infarction; I51.7 Cardiomegaly; L97.211 Non-pressure chronic ulcer of right calf limited to breakdown of skin; I25.10 Atherosclerotic heart disease of native coronary artery without angina pectoris; Z95.5 Presence of coronary angioplasty implant and graft; E11.621 Type 2 diabetes mellitus with foot ulcer; I27.81 Cor pulmonale (chronic); J98.11 Atelectasis; E27.9 Disorder of adrenal gland, unspecified; R91.8 Other nonspecific abnormal finding of lung field; R00.2 Palpitations; K80.20 Calculus of gallbladder without cholecystitis without obstruction; E11.622 Type 2 diabetes mellitus with other skin ulcer; I50.9 Heart failure, unspecified